=== PATIENT | male | born 1960 ===

== ENCOUNTER 2018-01-26 13:13 | Inpatient (IN) | payer MEDICAID, OTHER ==
--- NOTE | 2018-01-26 13:36 | C.PDOC ---
History Of Present Illness Pt is a 57yo who presents with c/o gen wkns and difficulty walking for the past 1 month.Pt also reports diff with speaking ,moving his tongue.Pt denies CP, SOB.Pt fell in the ED on the way in for evaluation Chief Complaint (Nursing): Trauma History Per: Patient History/Exam Limitations: language barrier Onset/Duration Of Symptoms: Persistent Current Symptoms Are (Timing): Worse Activity At Onset Of Symptoms: Standing Seizure Or Post-ictal Symptoms: None Fall Associated With With Symptoms: No Severity: None Recent travel outside of the [place]: No - Symptoms Of CVA Associated Symptoms: Impaired Speech, Decreased Ability To Walk Character Of Deficits: Left: Weakness, Face: Weakness, Arm: Weakness, Leg: Weakness Recent Aspirin Use: No Current Coumadin Use?: No Recent Head Trauma: No Past Medical History Reviewed: Historical Data, Nursing Documentation, Vital Signs Vital Signs: Last Vital Signs Temp 97.9 F 01/26/18 18:25 Pulse 57 L 01/26/18 19:07 Resp 20 01/26/18 18:25 BP 122/76 01/26/18 18:25 Pulse Ox 97 01/27/18 00:36 - Medical History PMH: Asthma Family History: States: No Known Family Hx - Social History Hx Alcohol Use: No Hx Substance Use: Yes (ocassionally) - Immunization History Hx Tetanus Toxoid Vaccination: No Hx Influenza Vaccination: No Hx Pneumococcal Vaccination: No Review Of Systems Constitutional: Negative for: Fever ENT: Negative for: Ear Pain, Throat Pain Cardiovascular: Negative for: Chest Pain, Palpitations Respiratory: Negative for: Shortness of Breath Gastrointestinal: Negative for: Nausea, Vomiting Musculoskeletal: Negative for: Back Pain Neurological: Positive for: Weakness, Numbness, Incoordination, Change in Speech , Other (facial droop) Physical Exam - Physical Exam Appears: Non-toxic, No Acute Distress Skin: Warm, Dry, No Rash Eye(s): bilateral: PERRL Cardiovascular: Rhythm Regular, No Murmur Respiratory: Normal Breath Sounds, No Accessory Muscle Use Gastrointestinal/Abdominal: No Soft Extremity: No Deformity, No Swelling Neurological/Psych: Normal Motor (Left upper extremity: 3/5 strength with pronators drift. Left lower extremity: 4/5. ), Other (Left facial droop, djiboutian speaking only. Somewhat dysarthric) Other Neurological Findings: Tongue Deviation (left) Extremity: Left: Drift Before 10 Secs ED Course And Treatment - Laboratory Results Result Diagrams: 01/26/18 13:59 01/26/18 13:59 ECG: Interpreted By Me ECG Rhythm: Sinus Rhythm, ST/T Changes O2 Sat by Pulse Oximetry: 97 Interpretation Of Abnormal: flipped t's 2,3,avf,v4-v6.Q's in 2,3,f c/w old IWMI.No old ekg's for comparison - CT Scan/US No standard instances Other Rad Studies (CT/US): Read By Radiologist (R post branch MCA subacute ischemic stroke) NIHSS Stroke Scale 2 - Date/Time Evaluation Performed When Was NIHSS Performed: Baseline - How Severe is the Stroke Level of Consciousness: 0=Alert LOC to Questions: 0=Both comments correct LOC to commands: 0=Obeys both correctly Best Gaze: 0=Normal Visual: 0=No visual loss Facial: 2=Partial (lower face paralysis) Motor Arm - Left: 1=Drift noted before 10 sec Motor Arm - Right: 0=No drift Motor Leg - Left: 1=Drift before 5 sec Motor Leg - Right: 0=No drift Limb Ataxia: 1=Present Upper or Lower Sensory: 0=Normal Best Language: 0=No aphasia Dysarthia: 0=Normal articulation Extinction & Inattention (Neglect): 0=Normal, no object Score: 5 Medical Decision Making Medical Decision Making: Impression 57y/o M appears much older than stated age, comes in w/ dysarthria, facial droop and weakness x1 month. Diff Dx (includes but not limited to) Subacute CVA vs New onset diabetes Plan: * Type and Screen * CT Head * EKG * Labs * Aspirin, IVFs * Chest X-Ray * Reassess and Disposition Disposition - Disposition Disposition: HOSPITALIZED Disposition Time: 00:33 Condition: FAIR - Clinical Impression Clinical Impression: CVA (cerebral vascular accident) - Scribe Statement The provider has reviewed the documentation as recorded by the Scribe (Allen Mulligan) All medical record entries made by the Scribe were at my direction and personally dictated by me. I have reviewed the chart and agree that the record accurately reflects my personal performance of the history, physical exam, medical decision making, and the department course for this patient. I have also personally directed, reviewed, and agree with the discharge instructions and disposition.
[2018-01-26] MEDS ORDERED: Sodium Chloride 0.9% 1,000 ML IV SCH (13:45)
[2018-01-26] MEDS ORDERED: Iodixanol 320 MG/ML 100 ML BOTTLE IV ONE (13:49)
[2018-01-26] MEDS ORDERED: Sodium Chloride 0.9% 1,000 ML IV ONE (13:50)
[2018-01-26] MEDS ORDERED: Sodium Chloride 0.9% 1,000 ML ONE (13:54)
[2018-01-26 14:10] LABS: BASO # 0.1 K/uL (0.0-0.2); BASO % 1.1 % (0.0-2.0); EOS # 0.2 K/uL (0.0-0.7); EOS % 1.9 % (0.0-4.0); HEMOGLOBIN 15.1 g/dL (12.0-18.0); LYMPH # 2.1 K/uL (1.0-4.3); LYMPH % 22.5 % (20.0-40.0); MEAN CORPUSCULAR HEMOGLOBIN 29.2 pg (27.0-31.0); MEAN PLATELET VOLUME 7.5 fL (7.2-11.7); MONO # 0.5 K/uL (0.0-0.8); NEUT # 6.5 K/uL (1.8-7.0); NEUT % 69.5 % (50.0-75.0); NRBC % 0.1 % (0.0-2.0); RBC 5.15 Mil/uL (4.40-5.90); RED CELL DISTRIBUTION WIDTH 14.5 % (11.5-14.5); WHITE BLOOD COUNT 9.3 K/uL (4.8-10.8)
[2018-01-26 14:14] LABS: INR 1.2; PROTHROMBIN TIME 13.4 SECONDS (9.7-12.2)
[2018-01-26 14:22] LABS: ALB/GLOB RATIO 1.1 (1.0-2.1); ALBUMIN 3.9 g/dL (3.5-5.0); ALT/SGPT 24 U/L (21-72); AST/SGOT 25 U/L (17-59); BLOOD UREA NITROGEN 11 mg/dL (9-20); GFR AFRICAN-AMERICAN > 60; GFR NON-AFRICAN AMERICAN > 60; HDL CHOLESTEROL 35 mg/dL (30-70)
--- NOTE | 2018-01-26 14:25 | RAD ---
HISTORY: Code Stroke COMPARISON: No prior. FINDINGS: LUNGS: No active pulmonary disease. PLEURA: No significant pleural effusion identified, no pneumothorax apparent. CARDIOVASCULAR: Atherosclerotic aortic calcifications. Cardiomediastinal silhouette within normal limits. OSSEOUS STRUCTURES: Mild degenerative changes. VISUALIZED UPPER ABDOMEN: Normal. OTHER FINDINGS: None. IMPRESSION: No active disease.
[2018-01-26 14:33] LABS: LDL CHOLESTEROL 111 mg/dL (0-129)
[2018-01-26 14:48] LABS: B-TYPE NATRIURETIC PEPTIDE 157 pg/mL (0-900)
--- NOTE | 2018-01-26 14:53 | CT ---
PROCEDURE: CT HEAD WITHOUT CONTRAST. HISTORY: L hemiparesis COMPARISON: None available. TECHNIQUE: Axial computed tomography images were obtained through the head/brain without intravenous contrast. Radiation dose: Total exam DLP = 772.2 mGy-cm. This CT exam was performed using one or more of the following dose reduction techniques: Automated exposure control, adjustment of the mA and/or kV according to patient size, and/or use of iterative reconstruction technique. FINDINGS: HEMORRHAGE: No intracranial hemorrhage. BRAIN: Old posterior right MCA territory subacute infarction No atrophy or chronic microvascular ischemic changes. VENTRICLES: Unremarkable. No hydrocephalus. CALVARIUM: Unremarkable. PARANASAL SINUSES: Partial right maxillary and right ethmoid air cell opacification. MASTOID AIR CELLS: Unremarkable as visualized. No inflammatory changes. OTHER FINDINGS: None. IMPRESSION: Posterior right MCA territory subacute infarction.
--- NOTE | 2018-01-26 15:42 | CT ---
EXAM: CT Angiography Head With Intravenous Contrast CLINICAL HISTORY: 57 years old, male; Pain; Headache; Additional info: L hemiparesis TECHNIQUE: Axial computed tomographic angiography images of the head with intravenous contrast using CT angiography protocol. All CT scans at this facility use one or more dose reduction techniques, viz.: automated exposure control; ma/kV adjustment per patient size (including targeted exams where dose is matched to indication; i.e. head); or iterative reconstruction technique. MIP reconstructed images were created and reviewed. Coronal and sagittal reformatted images were created and reviewed. CONTRAST: 100 mL of [id number] administered intravenously. COMPARISON: No relevant prior studies available. FINDINGS: Right internal carotid artery: The horizontal portion of the right petrous internal carotid artery is markedly narrowed and attenuated . It is markedly narrowed as it exits the foramen lacerum. No aneurysm. Right anterior cerebral artery: Unremarkable. No occlusion or significant stenosis. No aneurysm. Right middle cerebral artery: Unremarkable. No occlusion or significant stenosis. No aneurysm. Right posterior cerebral artery: Unremarkable. No occlusion or significant stenosis. No aneurysm. Right vertebral artery: Unremarkable as visualized. Left internal carotid artery: No acute findings. Intracranial segment is patent with no significant stenosis. No aneurysm. Left anterior cerebral artery: Unremarkable. No occlusion or significant stenosis. No aneurysm. Left middle cerebral artery: Unremarkable. No occlusion or significant stenosis. No aneurysm. Left posterior cerebral artery: Unremarkable. No occlusion or significant stenosis. No aneurysm. Left vertebral artery: Unremarkable as visualized. Basilar artery: Unremarkable. No occlusion or significant stenosis. No aneurysm. IMPRESSION: 1. Marked narrowing and attenuation of the horizontal portion of the right petrous internal carotid artery. 2. Low density in the right parietal lobe consistent with the history of a previous right MCA infarct EXAM: CT Angiography Neck With Intravenous Contrast EXAM DATE/TIME: Exam ordered 01/26/2018 1:39 PM CLINICAL HISTORY: 57 years old, male; Pain; Headache; Additional info: L hemiparesis TECHNIQUE: Axial computed tomographic angiography images of the neck with intravenous contrast using CT angiography protocol. All CT scans at this facility use one or more dose reduction techniques, viz.: automated exposure control; ma/kV adjustment per patient size (including targeted exams where dose is matched to indication; i.e. head); or iterative reconstruction technique. MIP reconstructed images were created and reviewed. Coronal and sagittal reformatted images were created and reviewed. CONTRAST: 100 mL of [id number] administered intravenously. COMPARISON: No relevant prior studies available. FINDINGS: VASCULATURE: Right common carotid artery: Unremarkable. No significant stenosis. No dissection or occlusion. Right internal carotid artery: Calcified plaque is noted in the carotid bulb. Weblike plaque is noted at the level of the carotid bulb and the proximal right internal carotid artery. The right cervical carotid is attenuated and appears lower in density and smaller in caliber than on the contralateral side. Right external carotid artery: Unremarkable. No occlusion. Right vertebral artery: Unremarkable. No significant stenosis. No dissection or occlusion. Left common carotid artery: Unremarkable. No significant stenosis. No dissection or occlusion. Left internal carotid artery: Calcified plaque is noted in the carotid bulb.. Extracranial segment is patent with no significant stenosis. No dissection or occlusion. Left external carotid artery: Unremarkable. No occlusion. Left vertebral artery: Unremarkable. No significant stenosis. No dissection or occlusion. NECK: Bones/joints: No acute fracture. No dislocation. Soft tissues: Unremarkable as visualized. No mass. Sinuses: Mucosal thickening is noted within the maxillary sinuses bilaterally. Mucosal thickening extends into the ethmoid air cells bilaterally. 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 Dental: There are multiple missing teeth. There are dental caries. Thyroid: There is a 1.2 cm low-density lesion in the right lobe of the thyroid. Lung apices: Centrilobular and paraseptal type emphysema is noted in the lung apices bilaterally. Other findings: Low density is noted within the right parietal lobe. Moderate degenerative disc disease is noted of the mid and lower cervical spine. CAROTID STENOSIS REFERENCE USING NASCET CRITERIA: % ICA stenosis = (1 - narrowest ICA diameter/diameter of distal cervical ICA) x 100. Mild - <50% stenosis. Moderate - 50-69% stenosis. Severe - 70-94% stenosis. Near occlusion - 95-99% stenosis. Occluded - 100% stenosis. IMPRESSION: 1. Plaque noted within the common carotid arteries bilaterally. 2. The right cervical carotid is attenuated and appears lower in density and smaller caliber than on the contralateral side. 3. Mucosal thickening within maxillary sinuses bilaterally. 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 4. 1.2 cm low density lesion in the right lobe of the thyroid. Recommend further evaluation with thyroid ultrasound.
--- NOTE | 2018-01-26 17:02 | CP.PCM.CON ---
History of Present Illness - History of Present Illness History of Present Illness: Mr. 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 He presented to the ED today because he "could not take it any more". He denied headache, visual changes, loss of consciousness or any other focal neurological deficits (other than those mentioned). Review of Systems - Review of Systems All systems: reviewed and no additional remarkable complaints except Past Patient History - Past Social History Smoking Status: Light Smoker < 10 Cigarettes Daily - PULMONARY Hx Asthma: Yes - PSYCHIATRIC Hx Substance Use: Yes (ocassionally) - SURGICAL HISTORY Hx Surgeries: No - ANESTHESIA Hx Anesthesia: No Meds Allergies/Adverse Reactions: Allergies Allergy/AdvReac Type Severity Reaction Status Date / Time No Known Allergies Allergy Verified 01/26/18 13:29 - Medications Medications: Current Medications Sodium Chloride (Sodium Chloride 0.9%) 1,000 mls @ 100 mls/hr IV .Q10H ONE Stop: 01/26/18 23:49 Last Admin: 01/26/18 13:50 Dose: 100 mls/hr Physical Exam - Constitutional Appears: Well - Head Exam Head Exam: ATRAUMATIC, NORMAL INSPECTION, NORMOCEPHALIC - Eye Exam Eye Exam: EOMI, Normal appearance, PERRL - Respiratory Exam Respiratory Exam: Clear to Auscultation Bilateral, NORMAL BREATHING PATTERN - Cardiovascular Exam Cardiovascular Exam: Bradycardia, REGULAR RHYTHM - GI/Abdominal Exam GI & Abdominal Exam: Normal Bowel Sounds, Soft. absent: Tenderness - Neurological Exam Neurological exam: Abnormal Gait, Alert, CN II-XII Intact, Oriented x3, Reflexes Normal Additional comments: Left side hemiplegia, killian-anesthesia, slight neglect, reflexes brisk. NIHSS = 6 Results - Vital Signs Recent Vital Signs: Last Vital Signs Temp 97.7 F 01/26/18 13:24 Pulse 51 L 01/26/18 16:35 Resp 16 01/26/18 16:35 BP 107/66 01/26/18 16:35 Pulse Ox 97 01/26/18 16:35 - Labs Result Diagrams: 01/26/18 13:59 01/26/18 13:59 Labs: Laboratory Results - last 24 hr 03/02/1001/26/18 01/26/18 13:58 13:59 13:59 WBC 9.3 RBC 5.15 Hgb 15.1 Hct 44.3 MCV 86.0 MCH 29.2 MCHC 34.0 RDW 14.5 Plt Count 462 H MPV 7.5 Neut % (Auto) 69.5 Lymph % (Auto) 22.5 Vil[place] % (Auto) 5.0 Eos % (Auto) 1.9 Baso % (Auto) 1.1 Neut # (Auto) 6.5 Lymph # (Auto) 2.1 [place] # (Auto) 0.5 Eos # (Auto) 0.2 Baso # (Auto) 0.1 PT 13.4 H INR 1.2 APTT 35 H Sodium Potassium Chloride Carbon Dioxide Anion Gap BUN Creatinine Est GFR ( Amer) Est GFR (Non-Af Amer) Random Glucose Calcium Total Bilirubin AST ALT Alkaline Phosphatase Troponin I NT-Pro-B Natriuret Pep Total Protein Albumin Globulin Albumin/Globulin Ratio Triglycerides Cholesterol LDL Cholesterol Direct HDL Cholesterol Blood Type O POSITIVE Antibody Screen Negative 01/26/18 13:59 WBC RBC Hgb Hct MCV MCH MCHC RDW Plt Count MPV Neut % (Auto) Lymph % (Auto) Vil[place] % (Auto) Eos % (Auto) Baso % (Auto) Neut # (Auto) Lymph # (Auto) [place] # (Auto) Eos # (Auto) Baso # (Auto) PT INR APTT Sodium 141 Potassium 3.5 L Chloride 106 Carbon Dioxide 25 Anion Gap 13 BUN 11 Creatinine 1.0 Est GFR ( Amer) > 60 Est GFR (Non-Af Amer) > 60 Random Glucose 139 H Calcium 9.0 Total Bilirubin 0.5 AST 25 ALT 24 Alkaline Phosphatase 75 Troponin I < 0.0120 NT-Pro-B Natriuret Pep 157 Total Protein 7.5 Albumin 3.9 Globulin 3.6 Albumin/Globulin Ratio 1.1 Triglycerides 153 H Cholesterol 174 LDL Cholesterol Direct 111 HDL Cholesterol 35 Blood Type Antibody Screen - Imaging and Cardiology CT scan - head Status: Image reviewed by me, Report reviewed by me (Right MCA chronic ischemic stroke. Intracranial TRACY is stenotic. ) Assessment & Plan (1) Ischemic stroke Assessment and Plan: Based on the CT and CTA the ischemic stroke is chronic and may be due to intracranial stenosis of the TRACY. However, the patient was bradycardic and may have an underlying cardiac dysrhythmia causing cardio-embolic stroke. I recommend the followin. Admit to telemetry 2. MRI of the brain without contrast 3. Echocardiogram with bubble study 4. Carotid Duplex 5. Start aspirin 81 mg daily, load with plavix 300 mg now, and continue along with aspirin 75 mg daily for intracranial atherosclerotic disease 6. Lipitor 40 mg daily 7. HbA1c, lipid panel, TSH, vitamin D levels, B12, folate levels, hypercoagulable work-up 8. Fluids with NS at 100 mL/hr 9. PT/OT eval and treatment 10. Case management consult Thank you. Status: Acute Priority: High
--- NOTE | 2018-01-26 17:25 | CP.PCM.HP ---
<Daniel Steel - Last Filed: 01/26/18 17:22> History of Present Illness - History of Present Illness History of Present Illness: This is a 57 yo male with past medical hx of cocaine use presenting to ER with chief complaint of weakness. 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 He came in because he said he could not take it any more. Reports no other medical issues and no prior stroke. He says he last used cocaine 2 weeks ago. He is emirati speaking only and he takes no medications at home. PMH: cocaine use PSH: none Allergies: NKDA FH: denies Home meds: none Social hx: current smoker. 1 cig/week since age 7. social drinker. cocaine user. last use 2 weeks ago. born in [place]. 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 Present on Admission - Present on Admission Any Indicators Present on Admission: No History of DVT/PE: No History of Uncontrolled Diabetes: No Urinary Catheter: No Decubitus Ulcer Present: No Review of Systems - Review of Systems All systems: reviewed and no additional remarkable complaints except Review of Systems: negative except as stated in HPI. Past Patient History - Infectious Disease Hx of Infectious Diseases: None - Tetanus Immunizations Tetanus Immunization: Unknown - Past Medical History & Family History Past Medical History?: Yes Past Family History: Reviewed and not pertinent - Past Social History Smoking Status: Light Smoker < 10 Cigarettes Daily Chewing Tobacco Use: No Cigar Use: No Alcohol: Occasional Drugs: Cocaine Home Situation {Lives}: Alone Domestic Violence: Negative - PULMONARY Hx Asthma: Yes - PSYCHIATRIC Hx Substance Use: Yes (ocassionally) - SURGICAL HISTORY Hx Surgeries: No - ANESTHESIA Hx Anesthesia: No Meds Allergies/Adverse Reactions: Allergies Allergy/AdvReac Type Severity Reaction Status Date / Time No Known Allergies Allergy Verified 01/26/18 13:29 Physical Exam - Constitutional Appears: No Acute Distress, Unkempt - Head Exam Head Exam: ATRAUMATIC, NORMOCEPHALIC. absent: NORMAL INSPECTION Additional comments: left sided facial droop - Eye Exam Eye Exam: EOMI - ENT Exam ENT Exam: Mucous Membranes Moist - Neck Exam Neck exam: Positive for: Full Rom, Normal Inspection - Respiratory Exam Respiratory Exam: NORMAL BREATHING PATTERN. absent: Respiratory Distress - Cardiovascular Exam Cardiovascular Exam: REGULAR RHYTHM, +S1, +S2 - GI/Abdominal Exam GI & Abdominal Exam: Normal Bowel Sounds, Soft. absent: Tenderness - Extremities Exam Extremities exam: Positive for: full ROM, normal inspection - Back Exam Back exam: NORMAL INSPECTION - Neurological Exam Neurological exam: Alert, Oriented x3 Additional comments: left sided facial droop, slurred speech, drift in left leg, some weakness in left upper ext. - Psychiatric Exam Psychiatric exam: Normal Affect, Normal Mood Results - Vital Signs Recent Vital Signs: Last Vital Signs Temp 97.7 F 01/26/18 13:24 Pulse 51 L 01/26/18 16:35 Resp 16 01/26/18 16:35 BP 107/66 01/26/18 16:35 Pulse Ox 97 01/26/18 16:35 - Labs Result Diagrams: 01/26/18 13:59 01/26/18 13:59 Labs: Laboratory Results - last 24 hr 01/26/18 01/26/18 01/26/18 13:58 13:59 13:59 WBC 9.3 RBC 5.15 Hgb 15.1 Hct 44.3 MCV 86.0 MCH 29.2 MCHC 34.0 RDW 14.5 Plt Count 462 H MPV 7.5 Neut % (Auto) 69.5 Lymph % (Auto) 22.5 Kendall % (Auto) 5.0 Eos % (Auto) 1.9 Baso % (Auto) 1.1 Neut # (Auto) 6.5 Lymph # (Auto) 2.1 Kendall # (Auto) 0.5 Eos # (Auto) 0.2 Baso # (Auto) 0.1 PT 13.4 H INR 1.2 APTT 35 H Sodium Potassium Chloride Carbon Dioxide Anion Gap BUN Creatinine Est GFR ( Amer) Est GFR (Non-Af Amer) Random Glucose Calcium Total Bilirubin AST ALT Alkaline Phosphatase Troponin I NT-Pro-B Natriuret Pep Total Protein Albumin Globulin Albumin/Globulin Ratio Triglycerides Cholesterol LDL Cholesterol Direct HDL Cholesterol Blood Type O POSITIVE Antibody Screen Negative 01/26/18 13:59 WBC RBC Hgb Hct MCV MCH MCHC RDW Plt Count MPV Neut % (Auto) Lymph % (Auto) Kendall % (Auto) Eos % (Auto) Baso % (Auto) Neut # (Auto) Lymph # (Auto) Kend[place] # (Auto) Eos # (Auto) Baso # (Auto) PT INR APTT Sodium 141 Potassium 3.5 L Chloride 106 Carbon Dioxide 25 Anion Gap 13 BUN 11 Creatinine 1.0 Est GFR ( Amer) > 60 Est GFR (Non-Af Amer) > 60 Random Glucose 139 H Calcium 9.0 Total Bilirubin 0.5 AST 25 ALT 24 Alkaline Phosphatase 75 Troponin I < 0.0120 NT-Pro-B Natriuret Pep 157 Total Protein 7.5 Albumin 3.9 Globulin 3.6 Albumin/Globulin Ratio 1.1 Triglycerides 153 H Cholesterol 174 LDL Cholesterol Direct 111 HDL Cholesterol 35 Blood Type Antibody Screen Assessment & Plan - Assessment and Plan (Free Text) Assessment: This is a 57 yo male with past medical hx of cocaine use presenting with 1. Acute CVA -neuro consult. recs appreciated. -asa 81 daily -plavix 75 daily -cta pending -will coordinate with Jie if there is a possible need for stenting. -PT/OT evaluation -speech and swallow eval. -echo pending -TSH -A1C 2. hx of cocaine use -urine drug screen 3. Bradycardia -continue to monitor 4. GI/DVT ppx -SCDs -protonix discussed with Dr. Baker. <Blanca Baker - Last Filed: 01/27/18 16:26> Results - Vital Signs Recent Vital Signs: Last Vital Signs Temp 98.4 F 01/27/18 15:54 Pulse 46 L 01/27/18 15:54 Resp 18 01/27/18 15:54 BP 108/62 01/27/18 15:54 Pulse Ox 98 01/27/18 15:54 - Labs Result Diagrams: 01/27/18 07:37 01/27/18 07:37 Labs: Laboratory Results - last 24 hr 01/26/18 01/26/18 01/26/18 13:59 13:59 17:20 WBC RBC Hgb Hct MCV MCH MCHC RDW Plt Count MPV Neut % (Auto) Lymph % (Auto) Kendall % (Auto) Eos % (Auto) Baso % (Auto) Neut # (Auto) Lymph # (Auto) Kendall # (Auto) Eos # (Auto) Baso # (Auto) ESR Sodium 141 Potassium 3.5 L Chloride 106 Carbon Dioxide 25 Anion Gap 13 BUN 11 Creatinine 1.0 Est GFR ( Amer) > 60 Est GFR (Non-Af Amer) > 60 Random Glucose 139 H Hemoglobin A1c 5.6 Calcium 9.0 Total Bilirubin 0.5 AST 25 ALT 24 Alkaline Phosphatase 75 Troponin I < 0.0120 NT-Pro-B Natriuret Pep 157 Total Protein 7.5 Albumin 3.9 Globulin 3.6 Albumin/Globulin Ratio 1.1 Triglycerides 153 H Cholesterol 174 LDL Cholesterol Direct 111 HDL Cholesterol 35 Prostate Specific Ag TSH 3rd Generation 1.10 Urine Opiates Screen Negative Urine Methadone Screen Negative Ur Barbiturates Screen Negative Ur Phencyclidine Scrn Negative Ur Amphetamines Screen Negative U Benzodiazepines Scrn Negative U Oth Cocaine Metabols Positive H U Cannabinoids Screen Negative 01/27/18 01/27/18 07:37 07:37 WBC 8.3 RBC 4.89 Hgb 14.3 Hct 41.7 MCV 85.4 MCH 29.3 MCHC 34.3 RDW 14.5 Plt Count 441 H MPV 7.5 Neut % (Auto) 62.6 Lymph % (Auto) 25.7 Kendall % (Auto) 7.0 Eos % (Auto) 3.7 Baso % (Auto) 1.0 Neut # (Auto) 5.2 Lymph # (Auto) 2.1 Kendall # (Auto) 0.6 Eos # (Auto) 0.3 Baso # (Auto) 0.1 ESR 5 Sodium 140 Potassium 3.8 Chloride 109 H Carbon Dioxide 25 Anion Gap 10 BUN 9 Creatinine 0.9 Est GFR ( Amer) > 60 Est GFR (Non-Af Amer) > 60 Random Glucose 89 Hemoglobin A1c Calcium 8.7 Total Bilirubin 0.4 AST 27 ALT 23 Alkaline Phosphatase 77 Troponin I NT-Pro-B Natriuret Pep Total Protein 6.6 Albumin 3.2 L Globulin 3.3 Albumin/Globulin Ratio 1.0 Triglycerides Cholesterol LDL Cholesterol Direct HDL Cholesterol Prostate Specific Ag 2.03 TSH 3rd Generation Urine Opiates Screen Urine Methadone Screen Ur Barbiturates Screen Ur Phencyclidine Scrn Ur Amphetamines Screen U Benzodiazepines Scrn U Oth Cocaine Metabols U Cannabinoids Screen Attending/Attestation - Attestation I have personally seen and examined this patient.: Yes I have fully participated in the care of the patient.: Yes I have reviewed all pertinent clinical information: Yes Notes (Text): Patient was seen and examined with the resident He is a 57 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 he has subacute CVA with left side weakness. discussed with Dr brewster neurologist at bedside. CT and CTA scan shows ischemic stroke its chronic ,may be due to intracranial stenosis of the R ICA. He is also brdaycardic We will admit to telemetry Do Echocardiogram , Carotid Duplex Start aspirin 81 mg daily, load with plavix 300 mg now, and continue along with aspirin 75 mg daily hypercoagulable work-up,PT and OT. SW referral D/w the resident. I agree with the resident's documentation of the assessment and the plan
[2018-01-26 17:40] LABS: BARBITURATES, UR NEGATIVE (NEGATIVE); BENZODIAZEPINES, UR NEGATIVE (NEGATIVE); OPIATES, UR NEGATIVE (NEGATIVE); PHENCYCLIDINE, UR NEGATIVE (NEGATIVE)
[2018-01-26] MEDS ORDERED: Potassium Chloride 20 mEq ER Tab PO ONE (20:54)
[2018-01-27 07:54] LABS: BASO # 0.1 K/uL (0.0-0.2); EOS # 0.3 K/uL (0.0-0.7); EOS % 3.7 % (0.0-4.0); HEMOGLOBIN 14.3 g/dL (12.0-18.0); LYMPH # 2.1 K/uL (1.0-4.3); LYMPH % 25.7 % (20.0-40.0); MEAN CELL VOLUME 85.4 fL (80.0-94.0); MEAN CORPUSCULAR HEMOGLOBIN 29.3 pg (27.0-31.0); MEAN CORPUSCULAR HGB CONC 34.3 g/dL (33.0-37.0); MEAN PLATELET VOLUME 7.5 fL (7.2-11.7); MONO # 0.6 K/uL (0.0-0.8); NEUT # 5.2 K/uL (1.8-7.0); NEUT % 62.6 % (50.0-75.0); NRBC % 0.2 % (0.0-2.0); RBC 4.89 Mil/uL (4.40-5.90); RED CELL DISTRIBUTION WIDTH 14.5 % (11.5-14.5); WHITE BLOOD COUNT 8.3 K/uL (4.8-10.8)
[2018-01-27 08:08] LABS: ALBUMIN 3.2 g/dL (3.5-5.0); ALT/SGPT 23 U/L (21-72); AST/SGOT 27 U/L (17-59); BLOOD UREA NITROGEN 9 mg/dL (9-20); CALCIUM 8.7 mg/dl (8.6-10.4); GFR AFRICAN-AMERICAN > 60; GFR NON-AFRICAN AMERICAN > 60
--- NOTE | 2018-01-27 09:47 | US ---
HISTORY: lesion on thyroid TECHNIQUE: Sonographic evaluation of the thyroid gland. COMPARISON: Correlation is made to CT of the head/ neck dated 01/26/2018. FINDINGS: RIGHT LOBE: Measures 4.5 x 1.9 x 1.6 cm. Normal echotexture and flow. Nodules: Midpole multi-septated cystic nodule measuring 1.4 x 0.9 x 1.0 cm LEFT LOBE: Measures 3.8 x 1.6 x 1.4 cm. Normal echotexture and flow. Nodules: None ISTHMUS: Measures 0.3 cm. Normal echotexture and flow. Nodules: None OTHER FINDINGS: None . IMPRESSION: Right midpole multi-septated cystic nodule measuring up to 1.4 cm.
--- NOTE | 2018-01-27 15:29 | CP.PCM.PN ---
<Daniel Steel - Last Filed: 01/27/18 15:35> Subjective - Date & Time of Evaluation Date of Evaluation: 01/27/18 Time of Evaluation: 15:30 - Subjective Subjective: Progress note. Pt seen and examined at bedside. No acute distress. No events overnight. Neurology workup in progress. No fevers, chills, vomiting, diarrhea. Thyroid ultrasound pending. Objective - Vital Signs/Intake and Output Vital Signs (last 24 hours): Temp Pulse Resp BP Pulse Ox 98.0 F 49 L 20 110/62 96 01/27/18 09:08 01/27/18 09:08 01/27/18 09:08 01/27/18 09:08 01/27/18 09:08 Intake and Output: 01/27/18 01/27/18 06:59 18:59 Output Total 400 Balance -400 - Medications Medications: Current Medications Aspirin (Aspirin Chewable) 81 mg PO DAILY [facility] Last Admin: 01/27/18 10:29 Dose: 81 mg Clopidogrel Bisulfate (Plavix) 75 mg PO DAILY [facility] Last Admin: 01/27/18 10:29 Dose: 75 mg Heparin Sodium (Porcine) (Heparin) 5,000 units SC Q8 [facility] Last Admin: 01/27/18 13:22 Dose: 5,000 units Pantoprazole Sodium (Protonix Inj) 40 mg IVP DAILY [facility] Last Admin: 01/27/18 10:29 Dose: 40 mg Rosuvastatin Calcium (Crestor) 10 mg PO HS [facility] Last Admin: 01/26/18 21:14 Dose: 10 mg - Labs Labs: 01/27/18 07:37 01/27/18 07:37 PT 13.4 SECONDS (9.7-12.2) H 01/26/18 13:59 INR 1.2 01/26/18 13:59 APTT 35 SECONDS (21-34) H 01/26/18 13:59 - Constitutional Appears: Non-toxic, No Acute Distress - Head Exam Head Exam: ATRAUMATIC, NORMAL INSPECTION, NORMOCEPHALIC - Eye Exam Eye Exam: EOMI - ENT Exam ENT Exam: Mucous Membranes Moist - Neck Exam Neck Exam: Full ROM, Normal Inspection - Respiratory Exam Respiratory Exam: NORMAL BREATHING PATTERN. absent: Respiratory Distress - Cardiovascular Exam Cardiovascular Exam: +S1, +S2 - GI/Abdominal Exam GI & Abdominal Exam: Soft, Normal Bowel Sounds. absent: Tenderness - Extremities Exam Extremities Exam: Full ROM, Normal Inspection - Neurological Exam Neurological Exam: Alert, Awake, CN II-XII Intact - Psychiatric Exam Psychiatric exam: Flat Affect - Skin Skin Exam: Dry, Intact, Normal Color, Warm Assessment and Plan - Assessment and Plan (Free Text) Assessment: This is a 57 yo male with past medical hx of cocaine use presenting with 1. Acute CVA -neuro consult. recs appreciated. Dr. Ceron. -asa 81 daily -plavix 75 daily -cta head and neck shows atherosclerotic disease of common carotids as well as lesion on right lobe of thyroid. -will coordinate with Jie if there is a possible need for stenting. -PT/OT evaluation -speech and swallow eval was passed and pt started on soft diet. -echo pending -TSH within normal limits -A1C pending -will check protein c activity -will check protein s antigen -MRI of brain ordered. 2. hx of cocaine use -urine drug screen positive for cocaine 3. Bradycardia -continue to monitor -echo pending 4. GI/DVT ppx -SCDs -protonix -heparin 5000 SC q8 hrs discussed with Dr. Baker. <Blanca Baker - Last Filed: 01/27/18 19:01> Objective - Vital Signs/Intake and Output Vital Signs (last 24 hours): Temp Pulse Resp BP Pulse Ox 98.4 F 46 L 18 108/62 98 01/27/18 15:54 01/27/18 15:54 01/27/18 15:54 01/27/18 15:54 01/27/18 15:54 Intake and Output: 01/27/18 01/27/18 06:59 18:59 Intake Total 300 Output Total 400 500 Balance -400 -200 - Medications Medications: Current Medications Aspirin (Aspirin Chewable) 81 mg PO DAILY [facility] Last Admin: 01/27/18 10:29 Dose: 81 mg Clopidogrel Bisulfate (Plavix) 75 mg PO DAILY [facility] Last Admin: 01/27/18 10:29 Dose: 75 mg Heparin Sodium (Porcine) (Heparin) 5,000 units SC Q8 [facility] Last Admin: 01/27/18 13:22 Dose: 5,000 units Pantoprazole Sodium (Protonix Inj) 40 mg IVP DAILY [facility] Last Admin: 03/04/18 10:29 Dose: 40 mg Rosuvastatin Calcium (Crestor) 10 mg PO HS [facility] Last Admin: 01/26/18 21:14 Dose: 10 mg - Labs Labs: 01/27/18 07:37 01/27/18 07:37 PT 13.4 SECONDS (9.7-12.2) H 01/26/18 13:59 INR 1.2 01/26/18 13:59 APTT 35 SECONDS (21-34) H 01/26/18 13:59 Attending/Attestation - Attestation I have personally seen and examined this patient.: Yes I have fully participated in the care of the patient.: Yes I have reviewed all pertinent clinical information, including history, physical exam and plan: Yes Notes (Text): Patient was seen and examined with the resident He is a 57 years old male [employer],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 he has subacute CVA with left side weakness. discussed with Dr ceron neurologist at bedside. CT and CTA scan shows ischemic stroke its chronic ,may be due to intracranial stenosis of the R ICA. we will follow neurologist recommendation He is also brdaycardic and the EKG showed possible inferior infarct age undetermined and T wave abnormality Urine possitive for cocaine follow Echocardiogram , Carotid Duplex continue along with aspirin 75 mg daily and asprin hypercoagulable work-up,PT and OT. SW referral D/w the resident. I agree with the resident's documentation of the assessment and the plan
--- NOTE | 2018-01-27 15:30 | CP.PCM.PN ---
Subjective - Date & Time of Evaluation Date of Evaluation: 01/27/18 Time of Evaluation: 15:28 - Subjective Subjective: Mr. Morocho was seen and examined at the bedside. He is alert, oriented. He denies any headache, dizziness, lightheadedness, nausea, or vomiting. He remains with left facial droop, left side weakness. He is able to follow simple commands. CTA of the head and neck showed plaque noted within the bilateral common carotid arteries. The right cervical carotidis attenuated and appears lower in density and smaller in caliber than the contralateral side. Mucosal thickening within the bilateral maxillary sinuses, the right maxillary sinus is hypoplastic. 1.2 cm low density lesion in the right lobe thyroid. There was no untoward events overnight. Objective - Vital Signs/Intake and Output Vital Signs (last 24 hours): Temp Pulse Resp BP Pulse Ox 98.0 F 49 L 20 110/62 96 01/27/18 09:08 01/27/18 09:08 01/27/18 09:08 01/27/18 09:08 01/27/18 09:08 Intake and Output: 01/27/18 01/27/18 06:59 18:59 Output Total 400 Balance -400 - Medications Medications: Current Medications Aspirin (Aspirin Chewable) 81 mg PO DAILY [facility] Last Admin: 01/27/18 10:29 Dose: 81 mg Clopidogrel Bisulfate (Plavix) 75 mg PO DAILY [facility] Last Admin: 01/27/18 10:29 Dose: 75 mg Heparin Sodium (Porcine) (Heparin) 5,000 units SC Q8 [facility] Last Admin: 01/27/18 13:22 Dose: 5,000 units Pantoprazole Sodium (Protonix Inj) 40 mg IVP DAILY [facility] Last Admin: 01/27/18 10:29 Dose: 40 mg Rosuvastatin Calcium (Crestor) 10 mg PO HS [facility] Last Admin: 01/26/18 21:14 Dose: 10 mg - Labs Labs: 01/27/18 07:37 01/27/18 07:37 PT 13.4 SECONDS (9.7-12.2) H 01/26/18 13:59 INR 1.2 01/26/18 13:59 APTT 35 SECONDS (21-34) H 01/26/18 13:59 - Constitutional Appears: No Acute Distress - Head Exam Head Exam: NORMAL INSPECTION - Neurological Exam Neurological Exam: Alert, Awake, Oriented x3 Neuro motor strength exam: Left Upper Extremity: 2/1, Right Upper Extremity: 5, Left Lower Extremity: 2/1, Right Lower Extremity: 5 Additional comments: Left side hemiplegia, killian-anesthesia, slight neglect, reflexes brisk. Assessment and Plan - Assessment and Plan (Free Text) Assessment: Ischemic stroke Plan: Case discussed with Dr. Ceron, continue all current medical, physical, and occupational therapies. Recommend MRI of the brain without contrast. Pending echocardiogram with bubble study, Carotid Duplex.
[2018-01-27] MEDS ORDERED: Potassium Chloride 20 mEq ER Tab PO ONE (20:43)
--- NOTE | 2018-01-28 07:59 | CP.PCM.PN ---
Subjective - Date & Time of Evaluation Date of Evaluation: 01/28/18 Time of Evaluation: 07:57 - Subjective Subjective: Mr. Morocho was seen and examined at the bedside. He is alert, oriented. He denies any headache, dizziness, lightheadedness, blurred vision. He has the left facial droop and left upper extremity weakness. He is able to reposition himself while in bed and feed himself. He is able to follow simple commands. There was no untoward events overnight. Objective - Vital Signs/Intake and Output Vital Signs (last 24 hours): Temp Pulse Resp BP Pulse Ox 98.2 F 40 L 20 114/69 98 01/27/18 23:05 01/28/18 01:00 01/27/18 23:05 01/27/18 23:05 01/27/18 23:05 Intake and Output: 01/28/18 01/28/18 06:59 18:59 Intake Total 400 Balance 400 - Medications Medications: Current Medications Aspirin (Aspirin Chewable) 81 mg PO DAILY [facility] Last Admin: 01/27/18 10:29 Dose: 81 mg Clopidogrel Bisulfate (Plavix) 75 mg PO DAILY [facility] Last Admin: 01/27/18 10:29 Dose: 75 mg Heparin Sodium (Porcine) (Heparin) 5,000 units SC Q8 [facility] Last Admin: 01/28/18 05:23 Dose: 5,000 units Pantoprazole Sodium (Protonix Inj) 40 mg IVP DAILY [facility] Last Admin: 01/27/18 10:29 Dose: 40 mg Rosuvastatin Calcium (Crestor) 10 mg PO HS [facility] Last Admin: 01/27/18 21:28 Dose: 10 mg - Labs Labs: 01/27/18 07:37 01/27/18 07:37 PT 13.4 SECONDS (9.7-12.2) H 01/26/18 13:59 INR 1.2 01/26/18 13:59 APTT 35 SECONDS (21-34) H 01/26/18 13:59 - Constitutional Appears: No Acute Distress - Head Exam Head Exam: NORMAL INSPECTION - Neurological Exam Neurological Exam: Alert, Awake, Oriented x3 Neuro motor strength exam: Left Upper Extremity: 2/1, Right Upper Extremity: 5, Left Lower Extremity: 4, Right Lower Extremity: 5 Additional comments: Neurological unchanged from previous examination. Assessment and Plan (1) Ischemic stroke Assessment & Plan: Case discussed with Dr. Bennett, continue all current medical, physical, and occupational therapies. Recommend MRI of the brain without contrast and blood pressure control. Status: Acute
--- NOTE | 2018-01-28 10:16 | CP.PCM.PN ---
<Patricia Rush E - Last Filed: 01/28/18 17:18> Subjective - Date & Time of Evaluation Date of Evaluation: 01/28/18 Time of Evaluation: 07:40 - Subjective Subjective: Medicine Progress note (Dr. Springer's service) Patient was seen and examined at bedside. Patient reports that he is doing well. Patient is oriented to location and person with no noted speech deficit. During the encounter, patient has left arm weakness> left lower extremity. Patient denies chest pain, SOB, palpitations, nausea, vomiting, abdominal pain, fever or chills. Objective - Vital Signs/Intake and Output Vital Signs (last 24 hours): Temp Pulse Resp BP Pulse Ox 98.3 F 50 L 18 116/73 99 01/28/18 07:35 01/28/18 07:35 01/28/18 07:35 01/28/18 07:35 01/28/18 07:35 Intake and Output: 01/28/18 01/28/18 06:59 18:59 Intake Total 400 Balance 400 - Medications Medications: Current Medications Aspirin (Aspirin Chewable) 81 mg PO DAILY [facility] Last Admin: 01/27/18 10:29 Dose: 81 mg Clopidogrel Bisulfate (Plavix) 75 mg PO DAILY [facility] Last Admin: 01/27/18 10:29 Dose: 75 mg Heparin Sodium (Porcine) (Heparin) 5,000 units SC Q8 [facility] Last Admin: 01/28/18 05:23 Dose: 5,000 units Pantoprazole Sodium (Protonix Inj) 40 mg IVP DAILY [facility] Last Admin: 01/27/18 10:29 Dose: 40 mg Rosuvastatin Calcium (Crestor) 10 mg PO HS [facility] Last Admin: 01/27/18 21:28 Dose: 10 mg - Labs Labs: 01/27/18 07:37 01/27/18 07:37 PT 13.4 SECONDS (9.7-12.2) H 01/26/18 13:59 INR 1.2 01/26/18 13:59 APTT 35 SECONDS (21-34) H 01/26/18 13:59 - Constitutional Appears: Well, No Acute Distress - Head Exam Head Exam: ATRAUMATIC, NORMAL INSPECTION Additional comments: Mild left facial droop - Eye Exam Eye Exam: EOMI, Normal appearance - ENT Exam ENT Exam: Mucous Membranes Moist - Respiratory Exam Respiratory Exam: Clear to Ausculation Bilateral, NORMAL BREATHING PATTERN. absent: Rhonchi, Wheezes, Respiratory Distress - Cardiovascular Exam Cardiovascular Exam: REGULAR RHYTHM, +S1, +S2. absent: Murmur - GI/Abdominal Exam GI & Abdominal Exam: Soft, Normal Bowel Sounds. absent: Guarding, Rigid, Tenderness - Extremities Exam Extremities Exam: Normal Inspection Additional comments: Left sided weakness Left arm weakness> Left lower extremity - Neurological Exam Neurological Exam: Alert, Awake, CN II-XII Intact, Oriented x3 - Psychiatric Exam Psychiatric exam: Normal Affect - Skin Skin Exam: Normal Color Assessment and Plan (1) CVA (cerebral vascular accident) Assessment & Plan: Neurology consult, Dr. Ceron consult---> Help appreciated * Management as per recommendation Imaging/ Labs : Lipid panel: TGL: 153, Chol: 174m LDL: 111, HDL: 35 Hemoglobin A1c: 5.[address] (01/26/18): Posterior right MCA territory subacute infarction. Head/Neck CTA (01/26/18): Plaque noted within the common carotid arteries bilaterally. * 2. The right cervical carotid is attenuated and appears lower in density and smaller caliber than on the contralateral side. * 3. Mucosal thickening within maxillary sinuses bilaterally. 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 * 4. 1.2 cm low density lesion in the right lobe of the thyroid. Recommend further evaluation with thyroid ultrasound. Carotid Doppler (01/27/18): Duplex scan does not suggest hemodynamically significant stenosis of the left and right extracranial carotid arteries Brain MRI (01/27/18): Large subacute right MCA territory infarction involving the parietal lobe with mild gyral edema without mass effect or midline shift. Small focus of subacute infarction in the right frontal subcortical white matter. Mild chronic microangiopathic changes and mild age-related global parenchymal volume loss. Awaiting echocardiogram report f/U hypercoagulable workup Medication and management: * Aspirin 81mg PO daily * Plavix 75mg PO daily * Crestor 10mg PO HS * Speech, occupational and physical therapy Status: Acute (2) Thyroid lesion Assessment & Plan: Imaging/Lab: Head/Neck CTA (01/26/18): 1.2 cm low density lesion in the right lobe of the thyroid. Recommend further evaluation with thyroid ultrasound. Thyroid Ultrasound (01/27/18): Right midpole multi-septated cystic nodule measuring up to 1.4 cm. TSH: 1.10 Status: Acute (3) Substance abuse Assessment & Plan: UDS on admission: + Cocaine * avoid beta jelani Status: Acute (4) Bradycardia Assessment & Plan: Asymptomatic * Continue to monitor on telemetry Status: Acute (5) Prophylactic measure Assessment & Plan: GI: Protonic 40mg IVP daily DVT: Heparin 5,000 units SC Q8H, SCDs Speech, occupational and physical therapy * As per speech therapy, advanced bite diet and thin liquids All plans and management discussed with Dr. Springer Status: Acute <Pardeep Springer H - Last Filed: 01/29/18 07:36> Objective - Vital Signs/Intake and Output Vital Signs (last 24 hours): Temp Pulse Resp BP Pulse Ox 98.2 F 46 L 20 131/83 98 01/28/18 23:00 01/29/18 04:18 01/28/18 23:00 01/28/18 23:00 01/28/18 23:00 Intake and Output: 01/29/18 01/29/18 06:59 18:59 Intake Total 300 Balance 300 - Medications Medications: Current Medications Aspirin (Aspirin Chewable) 81 mg PO DAILY [facility] Last Admin: 01/28/18 11:04 Dose: 81 mg Clopidogrel Bisulfate (Plavix) 75 mg PO DAILY [facility] Last Admin: 01/28/18 11:04 Dose: 75 mg Heparin Sodium (Porcine) (Heparin) 5,000 units SC Q8 [facility] Last Admin: 01/29/18 06:07 Dose: 5,000 units Pantoprazole Sodium (Protonix Inj) 40 mg IVP DAILY [facility] Last Admin: 01/28/18 11:04 Dose: 40 mg Rosuvastatin Calcium (Crestor) 10 mg PO [facility] Last Admin: 01/28/18 21:52 Dose: 10 mg - Labs Labs: 01/29/18 06:53 01/27/18 07:37 PT 13.4 SECONDS (9.7-12.2) H 01/26/18 13:59 INR 1.2 01/26/18 13:59 APTT 35 SECONDS (21-34) H 01/26/18 13:59 Attending/Attestation - Attestation I have personally seen and examined this patient.: Yes I have fully participated in the care of the patient.: Yes I have reviewed all pertinent clinical information, including history, physical exam and plan: Yes Notes (Text): 01/29/18 07:36 Medical attending: Patient was seen and examined by me and medical records analyst together. Agree with the above note by medical records analyst. This is a 57-year-old male who unfortunately has had a CVA with left side hemiparesis. On physical exam he has very weak of left upper extremity body strength. He is able to weakly grasp my hand. He is able to hold his left arm up however he has heavy drinking and eventually he hits the bed after less than 10 seconds. He has very poor ability to flex and extend his elbow examination of his lower extremity shows that he is able to raise his left leg up from the bed however he has a lot of drifting does hit the bed after less than 10 seconds. Is also some noticeable facial drooping as well. As mentioned previously on the CAT scan they saw that he had a large right parietal area CVA. At the time I saw the patient yesterday he had not yet undergone MRI. Since then the MRI has returned it again confirmed the CAT scan findings. From what I understand the patient has been using at least cocaine. From what I understand the patient tolerated in [place]ian he only snorts the cocaine he does not inject cocaine however we will still have to get a echo as well as carotid studies just to see if he could've had a potential vegetation He'll need physical therapy to help as well. He is on Crestor, aspirin, Plavix, statin and his blood pressures have been stable as well Appreciate neurology coming and seeing the patient Thank you very much, Pardeep Springer
--- NOTE | 2018-01-28 12:35 | VASCLAB ---
PROCEDURE: HISTORY: ischemic stroke COMPARISON: None available. TECHNIQUE: Grayscale and duplex Doppler evaluation of the cervical carotid and vertebral arteries were performed. The common carotid, carotid bifurcations and cervical Internal Carotid Artery (ICA) and proximal External Carotid Artery (ECA) were evaluated. The vertebral arteries were evaluated for gross patency and flow direction. Report prepared by Geoffrey Avendano, BS, RVT FINDINGS: RIGHT CAROTID ARTERIES: 1. Common Carotid Artery: No significant focal plaque formation of the right common carotid artery. Maximum Peak Systolic velocity: 70 cm/sec: End-diastolic velocity 13 cm/sec. 2. Carotid Bifurcation: plaque formation. Maximum Peak Systolic velocity: 63 cm/sec: End-diastolic velocity 8 cm/sec. 3. Internal Carotid Artery: Plaque description: 3.1. Proximal Segment: Peak systolic velocity 46 cm/sec: End-diastolic velocity 11 cm/sec - % stenosis 0-15% 3.2. Middle Segment: Peak systolic velocity 52 cm/sec: End-diastolic velocity 14 cm/sec - % stenosis 0-15% 3.3. Distal Segment: Peak systolic velocity 43 cm/sec: End-diastolic velocity 11 cm/sec - % stenosis 0-15% 4. External Carotid Artery: No significant focal plaque formation. Peak systolic velocity 109 cm/sec 5. ICA/CCA Ratio: 0.9 LEFT CAROTID ARTERIES: 1. Common Carotid Artery: No significant focal plaque formation of the left common carotid artery. Maximum Peak Systolic velocity: 74 cm/sec: End-diastolic velocity 12 cm/sec. 2. Carotid Bifurcation: plaque formation. Maximum Peak Systolic velocity: 61 cm/sec: End-diastolic velocity 9 cm/sec. 3. Internal Carotid Artery: Plaque description: 3.1. Proximal Segment: Peak systolic velocity 66 cm/sec: End-diastolic velocity 15 cm/sec - % stenosis 0-15% 3.2. Middle Segment: Peak systolic velocity 60 cm/sec: End-diastolic velocity 16 cm/sec - % stenosis 0-15% 3.3. Distal Segment: Peak systolic velocity 41 cm/sec: End-diastolic velocity 12 cm/sec - % stenosis 0-15% 4. External Carotid Artery: No significant focal plaque formation. Peak systolic velocity 110 cm/sec 5. ICA/CCA Ratio: 0.9 VERTEBRAL ARTERIES: 1. Right Vertebral Artery: The right vertebral artery flow direction is antegrade. 2. Left Vertebral Artery: The left vertebral artery flow direction is antegrade. OTHER FINDINGS: 1. Right Brachial Blood pressure: 100 mmHg. 2. Left Brachial Blood pressure: 100 mmHg. IMPRESSION: RIGHT: Duplex scan does not suggest hemodynamically significant stenosis of the right extracranial carotid arteries. LEFT: Duplex scan does not suggest hemodynamically significant stenosis of the left extracranial carotid arteries.
--- NOTE | 2018-01-28 16:14 | MRI ---
PROCEDURE: MRI BRAIN WITHOUT CONTRAST HISTORY: ischemic stroke COMPARISON: Noncontrast head CT from 01/26/2018. TECHNIQUE: Multiplanar, multisequence MR images of the brain were obtained without intravenous contrast enhancement. FINDINGS: HEMORRHAGE: None DWI: There is a large area of restricted diffusion in the right parietal lobe. There is also a small focus of restricted diffusion in the right frontal subcortical white matter. BRAIN PARENCHYMA: There is T2/FLAIR hyperintensity in the right parietal lobe corresponding to the area of restricted diffusion with mild gyral edema. There is no mass, mass effect or abnormal extra-axial fluid collection. There are mild chronic microangiopathic changes. The midline sagittal structures are normal VENTRICLES: There is mild age-related global parenchymal volume loss and proportionate enlargement of the ventricles and cortical sulci. CRANIUM: There is normal bone marrow signal pattern. ORBITS: Grossly unremarkable. PARANASAL SINUSES/MASTOIDS: Chronic right maxillary sinusitis. The remaining included paranasal sinuses and mastoid air cells are clear the VASCULAR SYSTEM: Skull base flow voids intact. OTHER FINDINGS: None. IMPRESSION: Large subacute right MCA territory infarction involving the parietal lobe with mild gyral edema without mass effect or midline shift. Small focus of subacute infarction in the right frontal subcortical white matter. Mild chronic microangiopathic changes and mild age-related global parenchymal volume loss.
--- NOTE | 2018-01-28 23:29 | CP.PCM.CON ---
History of Present Illness - History of Present Illness History of Present Illness: 57 M admitted for stroke ECHO: ? LV non compaction cardiomyopathy Recommend ASA 81 plus Plavix 75 daily Past Patient History - Infectious Disease Hx of Infectious Diseases: None - Tetanus Immunizations Tetanus Immunization: Unknown - Past Medical History & Family History Past Medical History?: Yes - Past Social History Smoking Status: Light Smoker < 10 Cigarettes Daily - CARDIAC Hx Cardiac Disorders: No - PULMONARY Hx Asthma: Yes - NEUROLOGICAL Hx Neurological Disorder: No - HEENT Hx HEENT Problems: No - RENAL Hx Chronic Kidney Disease: No - ENDOCRINE/METABOLIC Hx Endocrine Disorders: No - HEMATOLOGICAL/ONCOLOGICAL Hx Blood Disorders: No - INTEGUMENTARY Hx Dermatological Problems: No - MUSCULOSKELETAL/RHEUMATOLOGICAL Hx Falls: No - GASTROINTESTINAL Hx Gastrointestinal Disorders: No - GENITOURINARY/GYNECOLOGICAL Hx Genitourinary Disorders: No - PSYCHIATRIC Hx Substance Use: Yes (ocassionally) - SURGICAL HISTORY Hx Surgeries: No - ANESTHESIA Hx Anesthesia: No Meds Allergies/Adverse Reactions: Allergies Allergy/AdvReac Type Severity Reaction Status Date / Time No Known Allergies Allergy Verified 01/26/18 13:29 - Medications Medications: Current Medications Aspirin (Aspirin Chewable) 81 mg PO DAILY [facility] Last Admin: 01/28/18 11:04 Dose: 81 mg Clopidogrel Bisulfate (Plavix) 75 mg PO DAILY [facility] Last Admin: 01/28/18 11:04 Dose: 75 mg Heparin Sodium (Porcine) (Heparin) 5,000 units SC Q8 [facility] Last Admin: 01/28/18 21:52 Dose: 5,000 units Pantoprazole Sodium (Protonix Inj) 40 mg IVP DAILY [facility] Last Admin: 01/28/18 11:04 Dose: 40 mg Rosuvastatin Calcium (Crestor) 10 mg PO HS [facility] Last Admin: 01/28/18 21:52 Dose: 10 mg Results - Vital Signs Recent Vital Signs: Last Vital Signs Temp 98.4 F 01/28/18 15:00 Pulse 53 L 01/28/18 15:00 Resp 18 01/28/18 15:00 BP 109/64 01/28/18 15:00 Pulse Ox 98 01/28/18 15:00 - Labs Result Diagrams: 01/27/18 07:37 01/27/18 07:37 Labs: Laboratory Results - last 24 hr 01/28/18 01/28/18 07:08 07:08 25-OH Vitamin D Total 12.9 L Folate 13.4
[2018-01-29 07:12] LABS: BASO # 0.1 K/uL (0.0-0.2); BASO % 1.5 % (0.0-2.0); EOS # 0.2 K/uL (0.0-0.7); EOS % 2.7 % (0.0-4.0); HEMOGLOBIN 14.9 g/dL (12.0-18.0); LYMPH # 2.1 K/uL (1.0-4.3); LYMPH % 24.2 % (20.0-40.0); MEAN CELL VOLUME 85.1 fL (80.0-94.0); MEAN CORPUSCULAR HEMOGLOBIN 28.9 pg (27.0-31.0); MEAN PLATELET VOLUME 7.8 fL (7.2-11.7); MONO # 0.5 K/uL (0.0-0.8); MONO % 5.4 % (0.0-10.0); NEUT # 5.6 K/uL (1.8-7.0); NEUT % 66.2 % (50.0-75.0); NRBC % 0.1 % (0.0-2.0); RBC 5.15 Mil/uL (4.40-5.90); RED CELL DISTRIBUTION WIDTH 14.5 % (11.5-14.5); WHITE BLOOD COUNT 8.5 K/uL (4.8-10.8)
[2018-01-29 07:42] LABS: ALBUMIN 3.5 g/dL (3.5-5.0); ALT/SGPT 21 U/L (21-72); AST/SGOT 29 U/L (17-59); BLOOD UREA NITROGEN 11 mg/dL (9-20); CALCIUM 8.8 mg/dl (8.6-10.4); GFR AFRICAN-AMERICAN > 60; GFR NON-AFRICAN AMERICAN > 60
--- NOTE | 2018-01-29 13:37 | CP.PCM.PN ---
<Patricia Rush E - Last Filed: 01/29/18 13:57> Subjective - Date & Time of Evaluation Date of Evaluation: 01/29/18 Time of Evaluation: 07:15 - Subjective Subjective: Medicine progress note ( Dr. Springer's service) Patient was seen and examined at bedside. Patient reports that he is doing well. Patient denies chest pain, SOB, palpitations, headache, blurry vision, nausea, vomiting, fever and chills. Patient still have left side weakness, Left arm> Left leg. Patient continues to work with physical therapy. Objective - Vital Signs/Intake and Output Vital Signs (last 24 hours): Temp Pulse Resp BP Pulse Ox 98.1 F 48 L 20 110/67 20 L 01/29/18 08:06 01/29/18 08:06 01/29/18 08:06 01/29/18 08:06 01/29/18 08:06 Intake and Output: 01/29/18 01/29/18 06:59 18:59 Intake Total 420 Output Total 400 Balance 20 - Medications Medications: Current Medications Aspirin (Aspirin Chewable) 81 mg PO DAILY [facility] Last Admin: 01/29/18 10:17 Dose: 81 mg Clopidogrel Bisulfate (Plavix) 75 mg PO DAILY [facility] Last Admin: 01/29/18 10:17 Dose: 75 mg Heparin Sodium (Porcine) (Heparin) 5,000 units SC Q8 [facility] Last Admin: 01/29/18 06:07 Dose: 5,000 units Pantoprazole Sodium (Protonix Inj) 40 mg IVP DAILY [facility] Last Admin: 01/29/18 10:17 Dose: 40 mg Rosuvastatin Calcium (Crestor) 10 mg PO HS [facility] Last Admin: 01/28/18 21:52 Dose: 10 mg - Labs Labs: 01/29/18 06:53 01/29/18 06:53 PT 13.4 SECONDS (9.7-12.2) H 01/26/18 13:59 INR 1.2 01/26/18 13:59 APTT 35 SECONDS (21-34) H 01/26/18 13:59 - Constitutional Appears: Well, No Acute Distress - Head Exam Head Exam: ATRAUMATIC, NORMAL INSPECTION - Eye Exam Eye Exam: EOMI, Normal appearance - ENT Exam ENT Exam: Mucous Membranes Moist - Respiratory Exam Respiratory Exam: Clear to Ausculation Bilateral, NORMAL BREATHING PATTERN. absent: Rhonchi, Wheezes - Cardiovascular Exam Cardiovascular Exam: REGULAR RHYTHM, +S1, +S2 - GI/Abdominal Exam GI & Abdominal Exam: Soft, Normal Bowel Sounds. absent: Firm, Guarding, Rigid, Tenderness - Extremities Exam Extremities Exam: Normal Inspection. absent: Calf Tenderness, Pedal Edema Additional comments: Left sided weakness Left arm weakness> Left lower extremity - Neurological Exam Neurological Exam: Alert, Awake. absent: Normal Gait Neuro motor strength exam: Left Upper Extremity: 3, Right Upper Extremity: 5, Left Lower Extremity: 3, Right Lower Extremity: 4 - Psychiatric Exam Psychiatric exam: Normal Affect - Skin Skin Exam: Normal Color Assessment and Plan (1) CVA (cerebral vascular accident) Assessment & Plan: CVA (cerebral vascular accident) Assessment & Plan: Neurology consult, Dr. Ceron consult---> Help appreciated * Management as per recommendation Imaging/ Labs : Lipid panel: TGL: 153, Chol: 174m LDL: 111, HDL: 35 Hemoglobin A1c: 5.[address] (01/26/18): Posterior right MCA territory subacute infarction. Head/Neck CTA (01/26/18): Plaque noted within the common carotid arteries bilaterally. * 2. The right cervical carotid is attenuated and appears lower in density and smaller caliber than on the contralateral side. * 3. Mucosal thickening within maxillary sinuses bilaterally. 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 * 4. 1.2 cm low density lesion in the right lobe of the thyroid. Recommend further evaluation with thyroid ultrasound. Carotid Doppler (01/27/18): Duplex scan does not suggest hemodynamically significant stenosis of the left and right extracranial carotid arteries Brain MRI (01/27/18): Large subacute right MCA territory infarction involving the parietal lobe with mild gyral edema without mass effect or midline shift. Small focus of subacute infarction in the right frontal subcortical white matter. Mild chronic microangiopathic changes and mild age-related global parenchymal volume loss. 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 Status: Acute (2) Thyroid lesion Assessment & Plan: Imaging/Lab: Head/Neck CTA (01/26/18): 1.2 cm low density lesion in the right lobe of the thyroid. Recommend further evaluation with thyroid ultrasound. Thyroid Ultrasound (01/27/18): Right midpole multi-septated cystic nodule measuring up to 1.4 cm. TSH: 1.10 Status: Acute (3) Substance abuse Assessment & Plan: UDS on admission: + Cocaine * avoid beta jelani Status: Acute (4) Bradycardia Assessment & Plan: Asymptomatic * Continue to monitor on telemetry Status: Acute (5) Prophylactic measure Assessment & Plan: GI: Protonix 40mg IVP daily DVT: Heparin 5,000 units SC Q8H, SCDs Speech, occupational and physical therapy * As per speech therapy, advanced bite diet and thin liquids Disposition: Patient needs more physical therapy and possibly rehabilitation upon discharge; will follow up with cyanide case hardener regarding access to rehabilitation. All plans and management discussed with Dr. Springer Status: Acute <Pardeep Springer H - Last Filed: 01/29/18 14:55> Objective - Vital Signs/Intake and Output Vital Signs (last 24 hours): Temp Pulse Resp BP Pulse Ox 98.1 F 48 L 20 110/67 20 L 01/29/18 08:06 01/29/18 08:06 01/29/18 08:06 01/29/18 08:06 01/29/18 08:06 Intake and Output: 01/29/18 01/29/18 06:59 18:59 Intake Total 420 600 Output Total 400 Balance 20 600 - Medications Medications: Current Medications Aspirin (Aspirin Chewable) 81 mg PO DAILY [facility] Last Admin: 01/29/18 10:17 Dose: 81 mg Clopidogrel Bisulfate (Plavix) 75 mg PO DAILY [facility] Last Admin: 01/29/18 10:17 Dose: 75 mg Heparin Sodium (Porcine) (Heparin) 5,000 units SC Q8 [facility] Last Admin: 01/29/18 13:59 Dose: 5,000 units Pantoprazole Sodium (Protonix Inj) 40 mg IVP DAILY [facility] Last Admin: 01/29/18 10:17 Dose: 40 mg Rosuvastatin Calcium (Crestor) 10 mg PO HS [facility] Last Admin: 01/28/18 21:52 Dose: 10 mg - Labs Labs: 01/29/18 06:53 01/29/18 06:53 PT 13.4 SECONDS (9.7-12.2) H 01/26/18 13:59 INR 1.2 01/26/18 13:59 APTT 35 SECONDS (21-34) H 01/26/18 13:59 Attending/Attestation - Attestation I have personally seen and examined this patient.: Yes I have fully participated in the care of the patient.: Yes I have reviewed all pertinent clinical information, including history, physical exam and plan: Yes Notes (Text): Medical attending: Patient was seen and examined by me as well. Agree with the above note by the resident. The patient was not in any acute distress when we saw him As reported previously the patient's had a large parietal CVA. This was found on both CT scan as well as MRI of the brain. He remains on aspirin statin Plavix Also as previously mentioned, the patient has been using cocaine. We have ordered an echo that was done. Were still waiting on the final report of the echo at this moment. Does not have any cardiac murmurs exam nevertheless we did get the echo back to see if he could have potentially any vegetations. At the meantime he's to continue with physical therapy. Because of his social situation may be very difficult to get him to subacute rehabilitation or outpatient PT however we'll continue to monitor the patient and encourage PT while he's here thank you Pardeep Springer
--- NOTE | 2018-01-29 21:03 | CARD ---
APPROVED REPORT EXAM: Two-dimensional and M-mode echocardiogram with Doppler and color Doppler. Other Information Quality : [employer] : INDICATION CVA/TIA 2D DIMENSIONS IVSd0.8 (0.7-1.1cm)Aortic Root (2D)3.4 (2.0-3.7cm) LVDd4.7 (3.9-5.9cm)PWd1.0 (0.7-1.1cm) LVDs3.1 (2.5-4.0cm)FS (%) 33.4 % LVEF (%)62.0 (>50%) M-Mode DIMENSIONS Left Atrium (MM)3.56 (2.5-4.0cm)Aortic Root3.39 (2.2-3.7cm) Aortic Cusp Exc.2.34 (1.5-2.0cm) Mitral Valve MV E Xwxxkspb65.6cm/sMV A Eluzlxkh36.5cm/sE/A ratio1.5 TDI E/Lateral E'0.0E/Medial E'0.0 Tricuspid Valve TR Peak Vdsmcnuq077sp/sTR Peak [id number] LEFT VENTRICLE The left ventricle is normal size. There is normal left ventricular wall thickness. Left ventricle systolic function is The Ejection Fraction is 60-65%. There is normal LV segmental wall motion. The left ventricular diastolic function is normal. RIGHT VENTRICLE The right ventricle is normal size. There is normal right ventricular wall thickness. The right ventricular systolic function is normal. ATRIA The left atrium size is normal. The right atrium size is normal. The interatrial septum is intact with no evidence for an atrial septal defect. AORTIC VALVE The aortic valve is normal in structure. No aortic regurgitation is present. There is no aortic valvular stenosis. There is no aortic valvular vegetation. MITRAL VALVE The mitral valve is normal in structure. There is no evidence of mitral valve prolapse. There is no mitral valve stenosis. There is no mitral valve regurgitation noted. TRICUSPID VALVE The tricuspid valve is normal in structure. There is mild tricuspid regurgitation. Right ventricular systolic pressure is estimated at less than 30 mmHg. There is no pulmonary hypertension. There is no tricuspid valve prolapse or vegetation. There is no tricuspid valve stenosis. PULMONIC VALVE The pulmonic valve is not well visualized. There is mild pulmonic valvular regurgitation. GREAT VESSELS The aortic root is normal in size. PERICARDIAL EFFUSION There is no significant pericardial effusion. <Conclusion> Left ventricle systolic function is The Ejection Fraction is 60-65%. No aortic regurgitation is present. There is no mitral valve regurgitation noted. There is mild tricuspid regurgitation. There is no pulmonary hypertension. There is mild pulmonic valvular regurgitation.
[2018-01-30 07:42] LABS: BASO # 0.1 K/uL (0.0-0.2); BASO % 0.9 % (0.0-2.0); EOS # 0.3 K/uL (0.0-0.7); EOS % 3.9 % (0.0-4.0); HEMOGLOBIN 13.8 g/dL (12.0-18.0); LYMPH # 2.3 K/uL (1.0-4.3); LYMPH % 25.6 % (20.0-40.0); MEAN CELL VOLUME 85.6 fL (80.0-94.0); MEAN CORPUSCULAR HEMOGLOBIN 28.8 pg (27.0-31.0); MEAN CORPUSCULAR HGB CONC 33.7 g/dL (33.0-37.0); MEAN PLATELET VOLUME 7.8 fL (7.2-11.7); MONO # 0.6 K/uL (0.0-0.8); MONO % 7.1 % (0.0-10.0); NEUT # 5.5 K/uL (1.8-7.0); NEUT % 62.5 % (50.0-75.0); RBC 4.79 Mil/uL (4.40-5.90); RED CELL DISTRIBUTION WIDTH 14.5 % (11.5-14.5); WHITE BLOOD COUNT 8.8 K/uL (4.8-10.8)
--- NOTE | 2018-01-30 07:44 | CP.PCM.PN ---
Subjective - Date & Time of Evaluation Date of Evaluation: 01/30/18 Time of Evaluation: 07:37 - Subjective Subjective: Mr. Morocho was seen and examined at the bedside. He is alert, oriented in all spheres. He denies any headache, dizziness, lightheadedness, nausea, or vomiting. He remains with left side weakness. MRI of the brain showed large subacute right MCA infarction involving the parietal lobe with mild gyral edema without mass effect or midline shift. Small focus of subacute infarction in the right frontal subcortical white matter. Mild chronic microangiopathic changes and mild aga-related global parenchymal volume loss.Echocardiogram showed EK-60-65%, with mild tricuspid and pulmonic valve regurgitation. There was no untoward events overnight. Objective - Vital Signs/Intake and Output Vital Signs (last 24 hours): Temp Pulse Resp BP Pulse Ox 97.8 F 46 L 20 111/62 100 01/30/18 04:26 01/30/18 04:49 01/30/18 04:26 01/30/18 04:26 01/30/18 04:26 Intake and Output: 01/30/18 01/30/18 06:59 18:59 Intake Total 440 Output Total 502 Balance -62 - Medications Medications: Current Medications Aspirin (Aspirin Chewable) 81 mg PO DAILY [facility] Last Admin: 01/29/18 10:17 Dose: 81 mg Clopidogrel Bisulfate (Plavix) 75 mg PO DAILY [facility] Last Admin: 01/29/18 10:17 Dose: 75 mg Heparin Sodium (Porcine) (Heparin) 5,000 units SC Q8 [facility] Last Admin: 01/30/18 06:22 Dose: 5,000 units Pantoprazole Sodium (Protonix Inj) 40 mg IVP DAILY [facility] Last Admin: 01/29/18 10:17 Dose: 40 mg Rosuvastatin Calcium (Crestor) 10 mg PO HS [facility] Last Admin: 01/29/18 21:12 Dose: 10 mg - Labs Labs: 01/29/18 06:53 01/29/18 06:53 PT 13.4 SECONDS (9.7-12.2) H 01/26/18 13:59 INR 1.2 01/26/18 13:59 APTT 35 SECONDS (21-34) H 01/26/18 13:59 - Constitutional Appears: No Acute Distress - Head Exam Head Exam: NORMAL INSPECTION - Neurological Exam Neurological Exam: Alert, Awake, Oriented x3 Neuro motor strength exam: Left Upper Extremity: 3, Right Upper Extremity: 5, Left Lower Extremity: 3, Right Lower Extremity: 5 Additional comments: Neurological unchanged from previous examination. Assessment and Plan (1) Ischemic stroke Assessment & Plan: Case discussed with Dr. Bennett, continue all current medical regimen. Recommend PT , OT, and speech therapies. Recommend rehab for discharge palnning. Status: Acute
[2018-01-30 09:26] LABS: ALBUMIN 3.3 g/dL (3.5-5.0); ALT/SGPT 24 U/L (21-72); AST/SGOT 56 U/L (17-59); BLOOD UREA NITROGEN 14 mg/dL (9-20); CALCIUM 8.7 mg/dl (8.6-10.4); GFR AFRICAN-AMERICAN > 60; GFR NON-AFRICAN AMERICAN > 60
--- NOTE | 2018-01-30 09:26 | CP.PCM.PN ---
<Patricia Rush E - Last Filed: 01/30/18 16:27> Subjective - Date & Time of Evaluation Date of Evaluation: 01/30/18 Time of Evaluation: 07:35 - Subjective Subjective: Medicine progress note ( Dr. Springer's service) Patient was seen and examined at bedside. Patient reports that he is doing well. Patient denies chest pain, SOB, palpitations, headache, blurry vision, nausea, vomiting, fever and chills. Patient still have left side weakness, Left arm> Left leg with improvement. Patient continues to work with physical therapy. Objective - Vital Signs/Intake and Output Vital Signs (last 24 hours): Temp Pulse Resp BP Pulse Ox 97.8 F 51 L 20 115/68 99 01/30/18 07:00 01/30/18 07:00 01/30/18 07:00 01/30/18 07:00 01/30/18 07:00 Intake and Output: 01/30/18 01/30/18 06:59 18:59 Intake Total 440 Output Total 502 Balance -62 - Medications Medications: Current Medications Aspirin (Aspirin Chewable) 81 mg PO DAILY [facility] Last Admin: 01/29/18 10:17 Dose: 81 mg Clopidogrel Bisulfate (Plavix) 75 mg PO DAILY [facility] Last Admin: 01/29/18 10:17 Dose: 75 mg Heparin Sodium (Porcine) (Heparin) 5,000 units SC Q8 [facility] Last Admin: 01/30/18 06:22 Dose: 5,000 units Pantoprazole Sodium (Protonix Inj) 40 mg IVP DAILY [facility] Last Admin: 01/29/18 10:17 Dose: 40 mg Rosuvastatin Calcium (Crestor) 10 mg PO HS [facility] Last Admin: 01/29/18 21:12 Dose: 10 mg - Labs Labs: 01/30/18 07:17 01/29/18 06:53 PT 13.4 SECONDS (9.7-12.2) H 01/26/18 13:59 INR 1.2 01/26/18 13:59 APTT 35 SECONDS (21-34) H 01/26/18 13:59 - Constitutional Appears: Well, No Acute Distress - Head Exam Head Exam: ATRAUMATIC, NORMAL INSPECTION Additional comments: Mild left facial droop secondary to acute CVA - Eye Exam Eye Exam: EOMI - ENT Exam ENT Exam: Mucous Membranes Moist - Respiratory Exam Respiratory Exam: Clear to Ausculation Bilateral, NORMAL BREATHING PATTERN. absent: Rales, Rhonchi, Wheezes, Respiratory Distress - Cardiovascular Exam Cardiovascular Exam: REGULAR RHYTHM, +S1, +S2. absent: Murmur - GI/Abdominal Exam GI & Abdominal Exam: Soft, Normal Bowel Sounds. absent: Firm, Guarding, Rigid, Tenderness - Extremities Exam Extremities Exam: Normal Inspection. absent: Calf Tenderness, Pedal Edema - Neurological Exam Neurological Exam: Alert, Awake Neuro motor strength exam: Left Upper Extremity: 4, Right Upper Extremity: 5, Left Lower Extremity: 4, Right Lower Extremity: 5 - Psychiatric Exam Psychiatric exam: Depressed - Skin Skin Exam: Normal Color Assessment and Plan (1) CVA (cerebral vascular accident) Assessment & Plan: Assessment & Plan: Neurology consult, Dr. Ceron consult---> Help appreciated * Management as per recommendation Imaging/ Labs : Lipid panel: TGL: 153, Chol: 174m LDL: 111, HDL: 35 Hemoglobin A1c: 5.[address] (01/26/18): Posterior right MCA territory subacute infarction. Head/Neck CTA (01/26/18): Plaque noted within the common carotid arteries bilaterally. * 2. The right cervical carotid is attenuated and appears lower in density and smaller caliber than on the contralateral side. * 3. Mucosal thickening within maxillary sinuses bilaterally. 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 * 4. 1.2 cm low density lesion in the right lobe of the thyroid. Recommend further evaluation with thyroid ultrasound. Carotid Doppler (01/27/18): Duplex scan does not suggest hemodynamically significant stenosis of the left and right extracranial carotid arteries Brain MRI (01/27/18): Large subacute right MCA territory infarction involving the parietal lobe with mild gyral edema without mass effect or midline shift. Small focus of subacute infarction in the right frontal subcortical white matter. Mild chronic microangiopathic changes and mild age-related global parenchymal volume loss. Echocardiogram (01/27/18): EF (60-65%), Mild TR & Pulmonic valve regurgitation. Recommendation to continue ASA 81mg PO daily and Plavix 75mg PO daily H ypercoagulable lab workup: Antiphospholipid antibodies, Factor V mutation, Protein S activity * Protein C activity within normal limit Medication and management: * Aspirin 81mg PO daily * Plavix 75mg PO daily * Crestor 10mg PO HS * Speech, occupational and physical therapy: As per physical therapy documentation, patient will benefit from ROM skilled PT in order to improve transfers and Gait patient is clinically evolving in presentation. * As per physical therapy evaluation, patient will need to be discharge to a rehabilitation Status: Acute (2) Thyroid lesion Assessment & Plan: Imaging/Lab: Head/Neck CTA (01/26/18): 1.2 cm low density lesion in the right lobe of the thyroid. Recommend further evaluation with thyroid ultrasound. Thyroid Ultrasound (01/27/18): Right midpole multi-septated cystic nodule measuring up to 1.4 cm. TSH: 1.10 Status: Acute (3) Substance abuse Assessment & Plan: UDS on admission: + Cocaine * avoid beta jelani Status: Acute (4) Bradycardia Assessment & Plan: Asymptomatic * Continue to monitor on telemetry Status: Acute (5) Prophylactic measure Assessment & Plan: GI: Protonix 40mg IVP daily DVT: Heparin 5,000 units SC Q8H, SCDs Speech, occupational and physical therapy * As per speech therapy, advanced bite diet and thin liquids Disposition: Patient needs more physical therapy and possibly rehabilitation upon discharge; will follow up with case therapist regarding access to rehabilitation. All plans and management discussed with Dr. Springer Status: Acute <Pardeep Springer - Last Filed: 01/30/18 16:40> Objective - Vital Signs/Intake and Output Vital Signs (last 24 hours): Temp Pulse Resp BP Pulse Ox 97.9 F 58 L 20 116/64 99 01/30/18 16:00 01/30/18 16:00 01/30/18 16:00 01/30/18 16:00 01/30/18 16:00 Intake and Output: 01/30/18 01/30/18 06:59 18:59 Intake Total 440 720 Output Total 502 1200 Balance -62 -480 - Medications Medications: Current Medications Aspirin (Aspirin Chewable) 81 mg PO DAILY [facility] Last Admin: 01/30/18 10:35 Dose: 81 mg Clopidogrel Bisulfate (Plavix) 75 mg PO DAILY [facility] Last Admin: 01/30/18 10:35 Dose: 75 mg Heparin Sodium (Porcine) (Heparin) 5,000 units SC Q8 [facility] Last Admin: 01/30/18 13:44 Dose: 5,000 units Pantoprazole Sodium (Protonix Inj) 40 mg IVP DAILY [facility] Last Admin: 01/30/18 10:35 Dose: 40 mg Rosuvastatin Calcium (Crestor) 10 mg PO HS [facility] Last Admin: 01/29/18 21:12 Dose: 10 mg - Labs Labs: 01/30/18 07:17 01/30/18 07:17 PT 13.4 SECONDS (9.7-12.2) H 01/26/18 13:59 INR 1.2 01/26/18 13:59 APTT 35 SECONDS (21-34) H 01/26/18 13:59 Attending/Attestation - Attestation I have personally seen and examined this patient.: Yes I have fully participated in the care of the patient.: Yes I have reviewed all pertinent clinical information, including history, physical exam and plan: Yes Notes (Text): 01/30/18 16:40 Medical attending: Patient was seen and examined by me with the medical librarian. Reviewed the above note by the resident and agree with the above. As reported above in the medical librarian note, the patient's echo returned he did not have any vegetations on it. Today he seemed to be able to lift his arm higher than before and is able to keep it above the bed for 10 seconds. He still has some drifting but it's not as serious as it was previously. The same can be said for his legs. So at this time were waiting on additional physical therapy. They've recommended [facility] however as mentioned before because the patient's social situation this might not be readily available. He remains on Plavix, aspirin, statin, blood pressure monitoring . Thank you very much, Pardeep Springer
[2018-01-31 03:50] LABS: CARDIOLIPIN AB (IGA) <11 APL (<=11); CARDIOLIPIN AB (IGG) <14 GPL (<=14)
[2018-01-31 04:06] LABS: B2 GLYCOPROTEIN I AB(IGA) <9 SAU (<=20); B2 GLYCOPROTEIN I AB(IGG) <9 SGU (<=20); B2 GLYCOPROTEIN I AB(IGM) <9 SMU (<=20)
[2018-01-31 06:15] LABS: BASO # 0.1 K/uL (0.0-0.2); BASO % 1.1 % (0.0-2.0); EOS # 0.4 K/uL (0.0-0.7); EOS % 4.7 % (0.0-4.0); LYMPH # 1.9 K/uL (1.0-4.3); LYMPH % 21.9 % (20.0-40.0); MEAN CELL VOLUME 84.8 fL (80.0-94.0); MEAN CORPUSCULAR HEMOGLOBIN 29.1 pg (27.0-31.0); MEAN CORPUSCULAR HGB CONC 34.3 g/dL (33.0-37.0); MEAN PLATELET VOLUME 7.6 fL (7.2-11.7); MONO # 0.6 K/uL (0.0-0.8); MONO % 7.1 % (0.0-10.0); NEUT # 5.6 K/uL (1.8-7.0); NEUT % 65.2 % (50.0-75.0); RBC 4.81 Mil/uL (4.40-5.90); RED CELL DISTRIBUTION WIDTH 14.3 % (11.5-14.5); WHITE BLOOD COUNT 8.6 K/uL (4.8-10.8)
[2018-01-31 06:37] LABS: ALB/GLOB RATIO 1.1 (1.0-2.1); ALBUMIN 3.5 g/dL (3.5-5.0); ALT/SGPT 29 U/L (21-72); AST/SGOT 36 U/L (17-59); BLOOD UREA NITROGEN 12 mg/dL (9-20); CALCIUM 8.8 mg/dl (8.6-10.4); GFR AFRICAN-AMERICAN > 60; GFR NON-AFRICAN AMERICAN > 60
--- NOTE | 2018-01-31 08:01 | CP.PCM.PN ---
Subjective - Date & Time of Evaluation Date of Evaluation: 01/31/18 Time of Evaluation: 07:57 - Subjective Subjective: Mr. Morocho was seen and examined at the bedside. He is alert, oriented. He is able to follow simple command and answer all questions. He denies any headache, blurred vision, dizziness, lightheadedness, nause, or vomiting. He is able to move all extremities with left side weaker than the left. There was no untoward events overnight. Objective - Vital Signs/Intake and Output Vital Signs (last 24 hours): Temp Pulse Resp BP Pulse Ox 98.4 F 53 L 20 120/72 98 01/30/18 23:20 01/30/18 23:20 01/30/18 23:20 01/30/18 23:20 01/30/18 23:20 Intake and Output: 01/31/18 01/31/18 06:59 18:59 Intake Total 480 Output Total 200 Balance 280 - Medications Medications: Current Medications Aspirin (Aspirin Chewable) 81 mg PO DAILY [facility] Last Admin: 01/30/18 10:35 Dose: 81 mg Clopidogrel Bisulfate (Plavix) 75 mg PO DAILY [facility] Last Admin: 01/30/18 10:35 Dose: 75 mg Heparin Sodium (Porcine) (Heparin) 5,000 units SC Q8 [facility] Last Admin: 01/31/18 05:40 Dose: 5,000 units Pantoprazole Sodium (Protonix Inj) 40 mg IVP DAILY [facility] Last Admin: 01/30/18 10:35 Dose: 40 mg Rosuvastatin Calcium (Crestor) 10 mg PO HS [facility] Last Admin: 01/30/18 21:55 Dose: 10 mg - Labs Labs: 01/31/18 06:06 01/31/18 06:06 PT 13.4 SECONDS (9.7-12.2) H 01/26/18 13:59 INR 1.2 01/26/18 13:59 APTT 35 SECONDS (21-34) H 01/26/18 13:59 - Constitutional Appears: No Acute Distress - Head Exam Head Exam: NORMAL INSPECTION - Neurological Exam Neurological Exam: Alert, Awake, Oriented x3 Neuro motor strength exam: Left Upper Extremity: 3, Right Upper Extremity: 5, Left Lower Extremity: 3, Right Lower Extremity: 5 Additional comments: Neurological unchanged from previous examination. Assessment and Plan (1) Ischemic stroke Assessment & Plan: Case discussed with Dr. Bennett, continue all current medical, physical, and occupational therapies. Recommend social media intern to assist the patient with his medications. Status: Acute
--- NOTE | 2018-01-31 14:34 | CP.PCM.PN ---
<Patricia Rush E - Last Filed: 01/31/18 14:31> Subjective - Date & Time of Evaluation Date of Evaluation: 01/31/18 Time of Evaluation: 07:50 - Subjective Subjective: Medicine progress note ( Dr. Springer's service) Patient was seen and examined at bedside. Patient reports that he is doing well. Patient denies chest pain, SOB, palpitations, headache, blurry vision, nausea, vomiting, fever and chills. Patient still have left side weakness, Left arm> Left leg with minor improvement. Patient continues to work with physical therapy. Objective - Vital Signs/Intake and Output Vital Signs (last 24 hours): Temp Pulse Resp BP Pulse Ox 97.7 F 53 L 18 134/75 97 01/31/18 09:42 01/31/18 09:42 01/31/18 09:42 01/31/18 09:42 01/31/18 09:42 Intake and Output: 01/31/18 01/31/18 06:59 18:59 Intake Total 480 Output Total 200 Balance 280 - Medications Medications: Current Medications Aspirin (Aspirin Chewable) 81 mg PO DAILY [facility] Last Admin: 01/31/18 11:01 Dose: 81 mg Clopidogrel Bisulfate (Plavix) 75 mg PO DAILY [facility] Last Admin: 01/31/18 11:01 Dose: 75 mg Heparin Sodium (Porcine) (Heparin) 5,000 units SC Q8 [facility] Last Admin: 01/31/18 14:08 Dose: 5,000 units Pantoprazole Sodium (Protonix Inj) 40 mg IVP DAILY [facility] Last Admin: 01/31/18 11:01 Dose: 40 mg Rosuvastatin Calcium (Crestor) 10 mg PO HS [facility] Last Admin: 01/30/18 21:55 Dose: 10 mg - Labs Labs: 01/31/18 06:06 01/31/18 06:06 PT 13.4 SECONDS (9.7-12.2) H 01/26/18 13:59 INR 1.2 01/26/18 13:59 APTT 35 SECONDS (21-34) H 01/26/18 13:59 - Constitutional Appears: Well, No Acute Distress - Head Exam Head Exam: ATRAUMATIC, NORMAL INSPECTION - Eye Exam Eye Exam: EOMI, Normal appearance - ENT Exam ENT Exam: Mucous Membranes Moist - Respiratory Exam Respiratory Exam: Clear to Ausculation Bilateral, NORMAL BREATHING PATTERN. absent: Rhonchi, Wheezes, Respiratory Distress - Cardiovascular Exam Cardiovascular Exam: REGULAR RHYTHM, +S1, +S2 - GI/Abdominal Exam GI & Abdominal Exam: Soft, Normal Bowel Sounds. absent: Firm, Guarding, Rigid, Tenderness - Neurological Exam Neurological Exam: Alert, Awake Neuro motor strength exam: Left Upper Extremity: 4, Right Upper Extremity: 4, Left Lower Extremity: 4, Right Lower Extremity: 4 - Psychiatric Exam Psychiatric exam: Depressed - Skin Skin Exam: Normal Color Assessment and Plan (1) CVA (cerebral vascular accident) Assessment & Plan: Neurology consult, Dr. Ceron consult---> Help appreciated * Management as per recommendation Imaging/ Labs : Lipid panel: TGL: 153, Chol: 174m LDL: 111, HDL: 35 Hemoglobin A1c: 5.[address] (01/26/18): Posterior right MCA territory subacute infarction. Head/Neck CTA (01/26/18): Plaque noted within the common carotid arteries bilaterally. * 2. The right cervical carotid is attenuated and appears lower in density and smaller caliber than on the contralateral side. * 3. Mucosal thickening within maxillary sinuses bilaterally. 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 * 4. 1.2 cm low density lesion in the right lobe of the thyroid. Recommend further evaluation with thyroid ultrasound. Carotid Doppler (01/27/18): Duplex scan does not suggest hemodynamically significant stenosis of the left and right extracranial carotid arteries Brain MRI (01/27/18): Large subacute right MCA territory infarction involving the parietal lobe with mild gyral edema without mass effect or midline shift. Small focus of subacute infarction in the right frontal subcortical white matter. Mild chronic microangiopathic changes and mild age-related global parenchymal volume loss. Echocardiogram (01/27/18): EF (60-65%), Mild TR & Pulmonic valve regurgitation. Recommendation to continue ASA 81mg PO daily and Plavix 75mg PO daily H ypercoagulable lab workup: Antiphospholipid antibodies, Factor V mutation, Protein S activity * Protein C activity within normal limit Medication and management: * Aspirin 81mg PO daily * Plavix 75mg PO daily * Crestor 10mg PO HS * Speech, occupational and physical therapy: As per physical therapy documentation, patient will benefit from ROM skilled PT in order to improve transfers and Gait patient is clinically evolving in presentation. * As per physical therapy evaluation, patient will need to be discharge to a rehabilitation Status: Acute (2) Thyroid lesion Assessment & Plan: Imaging/Lab: Head/Neck CTA (01/26/18): 1.2 cm low density lesion in the right lobe of the thyroid. Recommend further evaluation with thyroid ultrasound. Thyroid Ultrasound (01/27/18): Right midpole multi-septated cystic nodule measuring up to 1.4 cm. TSH: 1.10 Status: Acute (3) Substance abuse Assessment & Plan: UDS on admission: + Cocaine * avoid beta jelani Status: Acute (4) Bradycardia Assessment & Plan: Asymptomatic * Continue to monitor on telemetry Status: Acute (5) Prophylactic measure Assessment & Plan: GI: Protonix 40mg IVP daily DVT: Heparin 5,000 units SC Q8H, SCDs Speech, occupational and physical therapy * As per speech therapy, advanced bite diet and thin liquids Disposition: Patient needs more physical therapy and possibly rehabilitation upon discharge; will follow up with outpatient case manager regarding access to rehabilitation. At the moment, patient is unable to obtain [facility] placement as he is pending annie care All plans and management discussed with Dr. Springer Status: Acute <Pardeep Springer - Last Filed: 01/31/18 14:58> Objective - Vital Signs/Intake and Output Vital Signs (last 24 hours): Temp Pulse Resp BP Pulse Ox 97.7 F 53 L 18 134/75 97 01/31/18 09:42 01/31/18 09:42 01/31/18 09:42 01/31/18 09:42 01/31/18 09:42 Intake and Output: 01/31/18 01/31/18 06:59 18:59 Intake Total 480 Output Total 200 Balance 280 - Medications Medications: Current Medications Aspirin (Aspirin Chewable) 81 mg PO DAILY [facility] Last Admin: 01/31/18 11:01 Dose: 81 mg Clopidogrel Bisulfate (Plavix) 75 mg PO DAILY [facility] Last Admin: 01/31/18 11:01 Dose: 75 mg Heparin Sodium (Porcine) (Heparin) 5,000 units SC Q8 [facility] Last Admin: 01/31/18 14:08 Dose: 5,000 units Pantoprazole Sodium (Protonix Ec Tab) 40 mg PO DAILY [facility] Rosuvastatin Calcium (Crestor) 10 mg PO HS [facility] Last Admin: 03/07/18 21:55 Dose: 10 mg - Labs Labs: 01/31/18 06:06 01/31/18 06:06 PT 13.4 SECONDS (9.7-12.2) H 01/26/18 13:59 INR 1.2 01/26/18 13:59 APTT 35 SECONDS (21-34) H 01/26/18 13:59 Attending/Attestation - Attestation I have personally seen and examined this patient.: Yes I have fully participated in the care of the patient.: Yes I have reviewed all pertinent clinical information, including history, physical exam and plan: Yes Notes (Text): 01/31/18 14:58 Medical attending: Patient was seen and examined by me, agree with the above note by medical administrative specialist. At first glance during exam it seemed as if the patient had somewhat more strength in his left arm and left leg. Previously when we had seen him he had a lot of drifting we tried to lift his left arm and left leg. Today he was able to lift his left arm and leg on his own and hold there for 10 seconds. We did not walk the patient, however per report to the nursing taking care of the patient be observed him during physical therapy and he appears to have more weakness than he did before. So at this time were continue physical therapy. He remains on statin, aspirin, Plavix, blood pressure Thank you very much, Pardeep Springer
--- NOTE | 2018-01-31 17:59 | CARD ---
APPROVED REPORT EKG Measurement Heart [id number] CA [id number] <Conclusion> Marked sinus bradycardia Minimal voltage criteria for LVH, may be normal variant Inferior infarct, age undetermined T wave abnormality, consider anterolateral ischemia Abnormal ECG
--- NOTE | 2018-01-31 18:19 | CARD ---
APPROVED REPORT EKG Measurement Heart [id number] HI [id number] <Conclusion> Normal sinus rhythm Minimal voltage criteria for LVH, may be normal variant Possible Inferior infarct, age undetermined T wave abnormality, consider lateral ischemia Abnormal ECG
[2018-01-31 21:18] LABS: CARDIOLIPIN AB (IGM) <12 MPL (<=12); PHOSPHATIDYLSERINE AB IGA <20 U/mL (<20); PHOSPHATIDYLSERINE AB IGG <10 U/mL (<10); PHOSPHATIDYLSERINE AB IGM <25 U/mL (<25)
--- NOTE | 2018-02-01 07:24 | CP.PCM.PN ---
Subjective - Date & Time of Evaluation Date of Evaluation: 02/01/18 Time of Evaluation: 07:21 - Subjective Subjective: Mr. Morocho was seen and examined at the bedside. He is alert, oriented. He is able to follow simple command and answer all questions. He denies any headache, blurred vision, dizziness, lightheadedness, nausea, or vomiting. He is able to move all extremities with left side weaker than the left, but with improvement. He is able to raise his left upper extremity above his head and maintained it for 10 seconds.There was no untoward events overnight. Objective - Vital Signs/Intake and Output Vital Signs (last 24 hours): Temp Pulse Resp BP Pulse Ox 97.8 F 52 L 20 107/68 97 01/31/18 23:15 02/01/18 00:53 01/31/18 23:15 01/31/18 23:15 01/31/18 23:15 Intake and Output: 02/01/18 02/01/18 06:59 18:59 Output Total 600 Balance -600 - Medications Medications: Current Medications Aspirin (Aspirin Chewable) 81 mg PO DAILY [facility] Last Admin: 01/31/18 11:01 Dose: 81 mg Clopidogrel Bisulfate (Plavix) 75 mg PO DAILY [facility] Last Admin: 01/31/18 11:01 Dose: 75 mg Heparin Sodium (Porcine) (Heparin) 5,000 units SC Q8 [facility] Last Admin: 02/01/18 05:21 Dose: 5,000 units Pantoprazole Sodium (Protonix Ec Tab) 40 mg PO DAILY [facility] Rosuvastatin Calcium (Crestor) 10 mg PO HS [facility] Last Admin: 01/31/18 21:16 Dose: 10 mg - Labs Labs: 01/31/18 06:06 01/31/18 06:06 PT 13.4 SECONDS (9.7-12.2) H 01/26/18 13:59 INR 1.2 01/26/18 13:59 APTT 35 SECONDS (21-34) H 01/26/18 13:59 - Constitutional Appears: No Acute Distress - Head Exam Head Exam: NORMAL INSPECTION - Neurological Exam Neurological Exam: Alert, Awake, Oriented x3 Neuro motor strength exam: Left Upper Extremity: 3, Right Upper Extremity: 5, Left Lower Extremity: 4, Right Lower Extremity: 5 Additional comments: Neurological improved from previous examination, he is able to raise his arm above his head and maintained it for 10 seconds. Assessment and Plan (1) Ischemic stroke Assessment & Plan: Case discussed with Dr. Bennett, continue all current medical, physical, and occupational therapies. Recommend to follow up with an outpatient neurologist upon discharge and social services manager to assist patient with his medications. Status: Acute
[2018-02-01 07:42] LABS: BASO # 0.1 K/uL (0.0-0.2); BASO % 1.3 % (0.0-2.0); EOS # 0.4 K/uL (0.0-0.7); EOS % 4.3 % (0.0-4.0); HEMOGLOBIN 14.3 g/dL (12.0-18.0); LYMPH % 23.3 % (20.0-40.0); MEAN CELL VOLUME 85.2 fL (80.0-94.0); MEAN CORPUSCULAR HEMOGLOBIN 28.6 pg (27.0-31.0); MEAN CORPUSCULAR HGB CONC 33.6 g/dL (33.0-37.0); MEAN PLATELET VOLUME 7.8 fL (7.2-11.7); MONO # 0.5 K/uL (0.0-0.8); MONO % 5.8 % (0.0-10.0); NEUT # 5.7 K/uL (1.8-7.0); NEUT % 65.3 % (50.0-75.0); NRBC % 0.1 % (0.0-2.0); RBC 4.98 Mil/uL (4.40-5.90); RED CELL DISTRIBUTION WIDTH 14.7 % (11.5-14.5); WHITE BLOOD COUNT 8.7 K/uL (4.8-10.8)
[2018-02-01 07:45] LABS: ALB/GLOB RATIO 1.1 (1.0-2.1); ALBUMIN 3.5 g/dL (3.5-5.0); ALT/SGPT 48 U/L (21-72); AST/SGOT 55 U/L (17-59); BLOOD UREA NITROGEN 13 mg/dL (9-20); CALCIUM 8.9 mg/dl (8.6-10.4); GFR AFRICAN-AMERICAN > 60; GFR NON-AFRICAN AMERICAN > 60
[2018-02-01] MEDS: Pantoprazole 40 mg EC Tab PO SCH (10:25)
--- NOTE | 2018-02-01 15:30 | CP.PCM.PN ---
<Patricia Rush E - Last Filed: 02/01/18 15:27> Subjective - Date & Time of Evaluation Date of Evaluation: 02/01/18 Time of Evaluation: 07:50 - Subjective Subjective: Medicine progress note ( Dr. Springer's service) Patient was seen and examined at bedside. Patient reports that he is doing well. Patient denies chest pain, SOB, palpitations, headache, blurry vision, nausea, vomiting, fever and chills. Patient still have left side weakness, Left arm> Left leg with improvement; patient is able to raise is left arm and left leg in air over 10 seconds. Patient continues to work with physical therapy. As per nursing, patient did not have any acute issues overnight. Objective - Vital Signs/Intake and Output Vital Signs (last 24 hours): Temp Pulse Resp BP Pulse Ox 98.1 F 49 L 20 105/59 L 99 02/01/18 07:15 02/01/18 07:15 02/01/18 07:15 02/01/18 07:15 02/01/18 07:15 Intake and Output: 02/01/18 02/01/18 06:59 18:59 Output Total 600 Balance -600 - Medications Medications: Current Medications Aspirin (Aspirin Chewable) 81 mg PO DAILY [facility] Last Admin: 02/01/18 10:25 Dose: 81 mg Clopidogrel Bisulfate (Plavix) 75 mg PO DAILY [facility] Last Admin: 02/01/18 10:25 Dose: 75 mg Pantoprazole Sodium (Protonix Ec Tab) 40 mg PO DAILY [facility] Last Admin: 02/01/18 10:25 Dose: 40 mg Rosuvastatin Calcium (Crestor) 10 mg PO HS [facility] Last Admin: 01/31/18 21:16 Dose: 10 mg - Labs Labs: 02/01/18 07:17 02/01/18 07:17 PT 13.4 SECONDS (9.7-12.2) H 01/26/18 13:59 INR 1.2 01/26/18 13:59 APTT 35 SECONDS (21-34) H 01/26/18 13:59 - Constitutional Appears: Well, No Acute Distress - Head Exam Head Exam: ATRAUMATIC, NORMAL INSPECTION - Eye Exam Eye Exam: EOMI, Normal appearance - ENT Exam ENT Exam: Mucous Membranes Moist - Respiratory Exam Respiratory Exam: Clear to Ausculation Bilateral, NORMAL BREATHING PATTERN. absent: Rhonchi, Wheezes, Respiratory Distress - Cardiovascular Exam Cardiovascular Exam: REGULAR RHYTHM, +S1, +S2. absent: Murmur - GI/Abdominal Exam GI & Abdominal Exam: Soft, Normal Bowel Sounds. absent: Firm, Guarding, Rigid, Tenderness - Extremities Exam Extremities Exam: Normal Inspection. absent: Calf Tenderness, Pedal Edema - Neurological Exam Neurological Exam: Alert, Awake, Oriented x3 Neuro motor strength exam: Left Upper Extremity: 4, Right Upper Extremity: 4, Left Lower Extremity: 4, Right Lower Extremity: 4 - Psychiatric Exam Psychiatric exam: Normal Affect - Skin Skin Exam: Normal Color Assessment and Plan (1) CVA (cerebral vascular accident) Assessment & Plan: Neurology consult, Dr. Ceron consult---> Help appreciated * Management as per recommendation Imaging/ Labs : Lipid panel: TGL: 153, Chol: 174m LDL: 111, HDL: 35 Hemoglobin A1c: 5.[address] (01/26/18): Posterior right MCA territory subacute infarction. Head/Neck CTA (01/26/18): Plaque noted within the common carotid arteries bilaterally. * 2. The right cervical carotid is attenuated and appears lower in density and smaller caliber than on the contralateral side. * 3. Mucosal thickening within maxillary sinuses bilaterally. 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 * 4. 1.2 cm low density lesion in the right lobe of the thyroid. Recommend further evaluation with thyroid ultrasound. Carotid Doppler (01/27/18): Duplex scan does not suggest hemodynamically significant stenosis of the left and right extracranial carotid arteries Brain MRI (01/27/18): Large subacute right MCA territory infarction involving the parietal lobe with mild gyral edema without mass effect or midline shift. Small focus of subacute infarction in the right frontal subcortical white matter. Mild chronic microangiopathic changes and mild age-related global parenchymal volume loss. Echocardiogram (01/27/18): EF (60-65%), Mild TR & Pulmonic valve regurgitation. Recommendation to continue ASA 81mg PO daily and Plavix 75mg PO daily H ypercoagulable lab workup: Antiphospholipid antibodies, Factor V mutation, Protein S activity * Protein C activity within normal limit Medication and management: * Aspirin 81mg PO daily * Plavix 75mg PO daily * Crestor 10mg PO HS * Speech, occupational and physical therapy: As per physical therapy documentation, patient will benefit from ROM skilled PT in order to improve transfers and Gait patient is clinically evolving in presentation. * As per physical therapy evaluation, patient will need to be discharge to a rehabilitation Status: Acute (2) Thyroid lesion Assessment & Plan: Imaging/Lab: Head/Neck CTA (01/26/18): 1.2 cm low density lesion in the right lobe of the thyroid. Recommend further evaluation with thyroid ultrasound. Thyroid Ultrasound (01/27/18): Right midpole multi-septated cystic nodule measuring up to 1.4 cm. TSH: 1.10 Status: Acute (3) Substance abuse Assessment & Plan: UDS on admission: + Cocaine * avoid beta jelani Status: Acute (4) Bradycardia Assessment & Plan: Asymptomatic * Continue to monitor on telemetry Status: Acute (5) Prophylactic measure Assessment & Plan: GI: Protonix 40mg PO daily DVT: Lovenox 30mg SC daily, SCDs Speech, occupational and physical therapy * As per speech therapy, advanced bite diet and thin liquids Disposition: Patient needs more physical therapy and possibly rehabilitation upon discharge; will follow up with behavioral health case manager regarding access to rehabilitation. All plans and management discussed with Dr. Springer Status: Acute <Pardeep Springer - Last Filed: 02/01/18 15:53> Objective - Vital Signs/Intake and Output Vital Signs (last 24 hours): Temp Pulse Resp BP Pulse Ox 98.1 F 49 L 20 105/59 L 99 02/01/18 07:15 02/01/18 07:15 02/01/18 07:15 02/01/18 07:15 02/01/18 07:15 Intake and Output: 02/01/18 02/01/18 06:59 18:59 Output Total 600 Balance -600 - Medications Medications: Current Medications Aspirin (Aspirin Chewable) 81 mg PO DAILY [facility] Last Admin: 02/01/18 10:25 Dose: 81 mg Clopidogrel Bisulfate (Plavix) 75 mg PO DAILY [facility] Last Admin: 02/01/18 10:25 Dose: 75 mg Enoxaparin Sodium (Lovenox) 30 mg SC DAILY [facility] Pantoprazole Sodium (Protonix Ec Tab) 40 mg PO DAILY [facility] Last Admin: 02/01/18 10:25 Dose: 40 mg Rosuvastatin Calcium (Crestor) 10 mg PO HS [facility] Last Admin: 01/31/18 21:16 Dose: 10 mg - Labs Labs: 02/01/18 07:17 02/01/18 07:17 PT 13.4 SECONDS (9.7-12.2) H 01/26/18 13:59 INR 1.2 01/26/18 13:59 APTT 35 SECONDS (21-34) H 01/26/18 13:59 Attending/Attestation - Attestation I have personally seen and examined this patient.: Yes I have fully participated in the care of the patient.: Yes I have reviewed all pertinent clinical information, including history, physical exam and plan: Yes Notes (Text): 02/01/18 15:53 Medical attending: Patient was seen and examined by me Agree with the above note by the resident The patient was out of bed to chair. He was able to elevate his left arm and hold it in the air for greater than 10 seconds. He was also able to do the same with his left leg as well he was also observed to be bending his left knee however weekly. His muscle strength is about a 4/5 both upper and lower extremity. In the meantime were encouraging the patient to work with physical therapy. He remains on aspirin, Plavix, statin Because of his social situation he's not able to go to subacute rehabilitation, so we emphasized the importance of doing physical therapy here Pardeep Springer
[2018-02-02 06:18] LABS: BASO # 0.1 K/uL (0.0-0.2); BASO % 1.4 % (0.0-2.0); EOS # 0.4 K/uL (0.0-0.7); EOS % 4.8 % (0.0-4.0); HEMOGLOBIN 14.1 g/dL (12.0-18.0); LYMPH # 1.9 K/uL (1.0-4.3); LYMPH % 23.2 % (20.0-40.0); MEAN CELL VOLUME 84.8 fL (80.0-94.0); MEAN CORPUSCULAR HEMOGLOBIN 28.5 pg (27.0-31.0); MEAN CORPUSCULAR HGB CONC 33.6 g/dL (33.0-37.0); MEAN PLATELET VOLUME 7.6 fL (7.2-11.7); MONO # 0.6 K/uL (0.0-0.8); MONO % 7.8 % (0.0-10.0); NEUT % 62.8 % (50.0-75.0); NRBC % 0.1 % (0.0-2.0); RBC 4.96 Mil/uL (4.40-5.90); RED CELL DISTRIBUTION WIDTH 14.3 % (11.5-14.5)
[2018-02-02 06:39] LABS: ALB/GLOB RATIO 1.1 (1.0-2.1); ALBUMIN 3.5 g/dL (3.5-5.0); ALT/SGPT 77 U/L (21-72); AST/SGOT 64 U/L (17-59); BLOOD UREA NITROGEN 14 mg/dL (9-20); CALCIUM 8.9 mg/dl (8.6-10.4); GFR AFRICAN-AMERICAN > 60; GFR NON-AFRICAN AMERICAN > 60
--- NOTE | 2018-02-02 06:50 | CP.PCM.PN ---
<Daniel Wilkes - Last Filed: 02/02/18 06:47> Subjective - Date & Time of Evaluation Date of Evaluation: 02/02/18 Time of Evaluation: 06:47 - Subjective Subjective: PGY1 Medicine Note for Dr. Springer Patient seen and examine this morning at bedside. No acute events overnight. Patient reports they are doing well and currently has no complaints at this time. Objective - Vital Signs/Intake and Output Vital Signs (last 24 hours): Temp Pulse Resp BP Pulse Ox 97.8 F 53 L 20 117/51 L 97 02/01/18 23:20 02/01/18 23:20 02/01/18 23:20 02/01/18 23:20 02/01/18 23:20 Intake and Output: 02/01/18 02/02/18 18:59 06:59 Intake Total 540 480 Output Total 800 400 Balance -260 80 - Medications Medications: Current Medications Aspirin (Aspirin Chewable) 81 mg PO DAILY [facility] Last Admin: 02/01/18 10:25 Dose: 81 mg Clopidogrel Bisulfate (Plavix) 75 mg PO DAILY [facility] Last Admin: 02/01/18 10:25 Dose: 75 mg Enoxaparin Sodium (Lovenox) 30 mg SC DAILY [facility] Pantoprazole Sodium (Protonix Ec Tab) 40 mg PO DAILY [facility] Last Admin: 02/01/18 10:25 Dose: 40 mg Rosuvastatin Calcium (Crestor) 10 mg PO HS [facility] Last Admin: 02/01/18 21:47 Dose: 10 mg - Labs Labs: 02/02/18 06:04 02/02/18 06:04 PT 13.4 SECONDS (9.7-12.2) H 01/26/18 13:59 INR 1.2 01/26/18 13:59 APTT 35 SECONDS (21-34) H 01/26/18 13:59 - Constitutional Appears: No Acute Distress - Head Exam Head Exam: ATRAUMATIC, NORMOCEPHALIC - Eye Exam Eye Exam: EOMI, Normal appearance - ENT Exam ENT Exam: Mucous Membranes Moist - Respiratory Exam Respiratory Exam: Clear to Ausculation Bilateral, NORMAL BREATHING PATTERN. absent: Accessory Muscle Use, Rales, Rhonchi, Wheezes, Respiratory Distress - Cardiovascular Exam Cardiovascular Exam: REGULAR RHYTHM, +S1, +S2 - GI/Abdominal Exam GI & Abdominal Exam: Soft, Normal Bowel Sounds. absent: Distended, Firm, Guarding, Rigid, Tenderness - Extremities Exam Extremities Exam: Normal Inspection. absent: Calf Tenderness, Pedal Edema - Neurological Exam Neurological Exam: Alert, Awake, Oriented x3 - Psychiatric Exam Psychiatric exam: Normal Affect, Normal Mood - Skin Skin Exam: Dry, Warm Assessment and Plan - Assessment and Plan (Free Text) Plan: (1) CVA (cerebral vascular accident) Assessment & Plan: Neurology consult, Dr. Ceron consult---> Help appreciated * Management as per recommendation Imaging/ Labs : Lipid panel: TGL: 153, Chol: 174m LDL: 111, HDL: 35 Hemoglobin A1c: 5.[address] (01/26/18): Posterior right MCA territory subacute infarction. Head/Neck CTA (01/26/18): Plaque noted within the common carotid arteries bilaterally. * 2. The right cervical carotid is attenuated and appears lower in density and smaller caliber than on the contralateral side. * 3. Mucosal thickening within maxillary sinuses bilaterally. 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 * 4. 1.2 cm low density lesion in the right lobe of the thyroid. Recommend further evaluation with thyroid ultrasound. Carotid Doppler (01/27/18): Duplex scan does not suggest hemodynamically significant stenosis of the left and right extracranial carotid arteries Brain MRI (01/27/18): Large subacute right MCA territory infarction involving the parietal lobe with mild gyral edema without mass effect or midline shift. Small focus of subacute infarction in the right frontal subcortical white matter. Mild chronic microangiopathic changes and mild age-related global parenchymal volume loss. Echocardiogram (01/27/18): EF (60-65%), Mild TR & Pulmonic valve regurgitation. Recommendation to continue ASA 81mg PO daily and Plavix 75mg PO daily H ypercoagulable lab workup: Antiphospholipid antibodies, Factor V mutation, Protein S activity * Protein C activity within normal limit Medication and management: * Aspirin 81mg PO daily * Plavix 75mg PO daily * Crestor 10mg PO HS * Speech, occupational and physical therapy: As per physical therapy documentation, patient will benefit from ROM skilled PT in order to improve transfers and Gait patient is clinically evolving in presentation. * As per physical therapy evaluation, patient will need to be discharge to a rehabilitation Status: Acute (2) Thyroid lesion Assessment & Plan: Imaging/Lab: Head/Neck CTA (01/26/18): 1.2 cm low density lesion in the right lobe of the thyroid. Recommend further evaluation with thyroid ultrasound. Thyroid Ultrasound (01/27/18): Right midpole multi-septated cystic nodule measuring up to 1.4 cm. TSH: 1.10 Status: Acute (3) Substance abuse Assessment & Plan: UDS on admission: + Cocaine * avoid beta jelani Status: Acute (4) Bradycardia Assessment & Plan: Asymptomatic * Continue to monitor on telemetry Status: Acute (5) Prophylactic measure Assessment & Plan: GI: Protonix 40mg PO daily DVT: Lovenox 30mg SC daily, SCDs Speech, occupational and physical therapy * As per speech therapy, advanced bite diet and thin liquids Disposition: Patient needs more physical therapy and possibly rehabilitation upon discharge; will follow up with case preparer and liner regarding access to rehabilitation. No update at this time. All plans and management will be discussed with Dr. Racheal Sykesn PGY1 <Pardeep Springer - Last Filed: 02/02/18 09:31> Objective - Vital Signs/Intake and Output Vital Signs (last 24 hours): Temp Pulse Resp BP Pulse Ox 98.5 F 48 L 18 102/60 99 02/02/18 09:00 02/02/18 09:00 02/02/18 09:00 02/02/18 09:00 02/02/18 09:00 Intake and Output: 02/02/18 02/02/18 06:59 18:59 Intake Total 480 Output Total 400 Balance 80 - Medications Medications: Current Medications Aspirin (Aspirin Chewable) 81 mg PO DAILY [facility] Last Admin: 02/01/18 10:25 Dose: 81 mg Clopidogrel Bisulfate (Plavix) 75 mg PO DAILY [facility] Last Admin: 02/01/18 10:25 Dose: 75 mg Enoxaparin Sodium (Lovenox) 30 mg SC DAILY [facility] Pantoprazole Sodium (Protonix Ec Tab) 40 mg PO DAILY [facility] Last Admin: 02/01/18 10:25 Dose: 40 mg Rosuvastatin Calcium (Crestor) 10 mg PO HS [facility] Last Admin: 02/01/18 21:47 Dose: 10 mg - Labs Labs: 02/02/18 06:04 02/02/18 06:04 PT 13.4 SECONDS (9.7-12.2) H 01/26/18 13:59 INR 1.2 01/26/18 13:59 APTT 35 SECONDS (21-34) H 01/26/18 13:59 Attending/Attestation - Attestation I have personally seen and examined this patient.: Yes I have fully participated in the care of the patient.: Yes I have reviewed all pertinent clinical information, including history, physical exam and plan: Yes Notes (Text): 02/02/18 09:25 Medical attending: Patient was seen and examined by me. Agree with the above note by the resident The patient according to PT has gained more mobility with the left upper and left lower extremity - it is still weak and he requires maximum assist when they work with him So at this time because of his social situation our plan is to see how much improvement we can get with PT here. ASA, Plavix, Statin thank you Pardeep Springer
[2018-02-02] MEDS: Enoxaparin 30 mg Syringe SC SCH (10:07)
[2018-02-02] MEDS: Pantoprazole 40 mg EC Tab PO SCH (10:07)
--- NOTE | 2018-02-03 06:48 | CP.PCM.PN ---
<Daniel Wilkes - Last Filed: 02/03/18 06:45> Subjective - Date & Time of Evaluation Date of Evaluation: 02/03/18 Time of Evaluation: 06:45 - Subjective Subjective: PGY1 Medicine Note for Dr. Springer Patient seen and examine this morning at bedside. No acute events overnight. Patient is resting comfortably in bed. Currently has no complaints at this time. Objective - Vital Signs/Intake and Output Vital Signs (last 24 hours): Temp Pulse Resp BP Pulse Ox 98.3 F 50 L 20 106/52 L 96 02/03/18 04:30 02/03/18 04:30 02/03/18 04:30 02/03/18 04:45 02/03/18 04:30 Intake and Output: 02/02/18 02/03/18 18:59 07:59 Intake Total 20 Output Total 800 Balance -780 - Medications Medications: Current Medications Aspirin (Aspirin Chewable) 81 mg PO DAILY [facility] Last Admin: 02/02/18 10:07 Dose: 81 mg Clopidogrel Bisulfate (Plavix) 75 mg PO DAILY [facility] Last Admin: 02/02/18 10:07 Dose: 75 mg Enoxaparin Sodium (Lovenox) 30 mg SC DAILY [facility] Last Admin: 02/02/18 10:07 Dose: 30 mg Pantoprazole Sodium (Protonix Ec Tab) 40 mg PO DAILY [facility] Last Admin: 02/02/18 10:07 Dose: 40 mg Rosuvastatin Calcium (Crestor) 10 mg PO HS [facility] Last Admin: 02/02/18 21:20 Dose: 10 mg - Labs Labs: 02/02/18 06:04 02/02/18 06:04 PT 13.4 SECONDS (9.7-12.2) H 01/26/18 13:59 INR 1.2 01/26/18 13:59 APTT 35 SECONDS (21-34) H 01/26/18 13:59 - Constitutional Appears: Non-toxic, No Acute Distress - Head Exam Head Exam: ATRAUMATIC, NORMOCEPHALIC - Eye Exam Eye Exam: EOMI. absent: Scleral icterus - ENT Exam ENT Exam: Mucous Membranes Moist - Respiratory Exam Respiratory Exam: Clear to Ausculation Bilateral, NORMAL BREATHING PATTERN. absent: Accessory Muscle Use, Rales, Rhonchi, Wheezes, Respiratory Distress - Cardiovascular Exam Cardiovascular Exam: REGULAR RHYTHM, +S1, +S2 - GI/Abdominal Exam GI & Abdominal Exam: Soft, Normal Bowel Sounds. absent: Distended, Firm, Guarding, Rigid, Tenderness, Rebound - Extremities Exam Extremities Exam: absent: Calf Tenderness, Pedal Edema Additional comments: Moving all four extremities. - Neurological Exam Neurological Exam: Alert, Awake Neuro motor strength exam: Left Upper Extremity: 3 (improving), Right Upper Extremity: 5, Left Lower Extremity: 4, Right Lower Extremity: 5 - Psychiatric Exam Psychiatric exam: Normal Affect, Normal Mood - Skin Skin Exam: Dry, Warm Assessment and Plan - Assessment and Plan (Free Text) Plan: (1) CVA (cerebral vascular accident) Assessment & Plan: Neurology consult, Dr. Ceron consult---> Help appreciated * Management as per recommendation Imaging/ Labs : Lipid panel: TGL: 153, Chol: 174m LDL: 111, HDL: 35 Hemoglobin A1c: 5.[address] (01/26/18): Posterior right MCA territory subacute infarction. Head/Neck CTA (01/26/18): Plaque noted within the common carotid arteries bilaterally. * 2. The right cervical carotid is attenuated and appears lower in density and smaller caliber than on the contralateral side. * 3. Mucosal thickening within maxillary sinuses bilaterally. 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 * 4. 1.2 cm low density lesion in the right lobe of the thyroid. Recommend further evaluation with thyroid ultrasound. Carotid Doppler (01/27/18): Duplex scan does not suggest hemodynamically significant stenosis of the left and right extracranial carotid arteries Brain MRI (01/27/18): Large subacute right MCA territory infarction involving the parietal lobe with mild gyral edema without mass effect or midline shift. Small focus of subacute infarction in the right frontal subcortical white matter. Mild chronic microangiopathic changes and mild age-related global parenchymal volume loss. Echocardiogram (01/27/18): EF (60-65%), Mild TR & Pulmonic valve regurgitation. Recommendation to continue ASA 81mg PO daily and Plavix 75mg PO daily H ypercoagulable lab workup: Antiphospholipid antibodies, Factor V mutation, Protein S activity * Protein C activity within normal limit Medication and management: * Aspirin 81mg PO daily * Plavix 75mg PO daily * Crestor 10mg PO HS * Speech, occupational and physical therapy: As per physical therapy documentation, patient will benefit from ROM skilled PT in order to improve transfers and Gait patient is clinically evolving in presentation. * As per physical therapy evaluation, patient will need to be discharge to a rehabilitation Status: Acute (2) Thyroid lesion Assessment & Plan: Imaging/Lab: Head/Neck CTA (01/26/18): 1.2 cm low density lesion in the right lobe of the thyroid. Recommend further evaluation with thyroid ultrasound. Thyroid Ultrasound (01/27/18): Right midpole multi-septated cystic nodule measuring up to 1.4 cm. TSH: 1.10 Status: Acute (3) Substance abuse Assessment & Plan: UDS on admission: + Cocaine * avoid beta jelani Status: Acute (4) Bradycardia Assessment & Plan: Asymptomatic * Continue to monitor on telemetry Status: Acute (5) Prophylactic measure Assessment & Plan: GI: Protonix 40mg PO daily DVT: Lovenox 30mg SC daily, SCDs Speech, occupational and physical therapy * As per speech therapy, advanced bite diet and thin liquids Disposition: Per physical therapy, patient's mobility is improving. Due to his current social situation, will await returned case inspector regarding access to rehabilitation. No update at this time. All plans and management will be discussed with Dr. Racheal Sanchez Katrin PGY1 <Pardeep Springer - Last Filed: 02/03/18 09:38> Objective - Vital Signs/Intake and Output Vital Signs (last 24 hours): Temp Pulse Resp BP Pulse Ox 97.7 F 59 L 20 106/69 99 02/03/18 08:48 02/03/18 08:48 02/03/18 08:48 02/03/18 08:48 02/03/18 08:48 Intake and Output: 02/03/18 02/03/18 06:59 18:59 Intake Total Output Total Balance - Medications Medications: Current Medications Aspirin (Aspirin Chewable) 81 mg PO DAILY [facility] Last Admin: 02/02/18 10:07 Dose: 81 mg Clopidogrel Bisulfate (Plavix) 75 mg PO DAILY [facility] Last Admin: 02/02/18 10:07 Dose: 75 mg Enoxaparin Sodium (Lovenox) 30 mg SC DAILY [facility] Last Admin: 02/02/18 10:07 Dose: 30 mg Pantoprazole Sodium (Protonix Ec Tab) 40 mg PO DAILY [facility] Last Admin: 02/02/18 10:07 Dose: 40 mg Rosuvastatin Calcium (Crestor) 10 mg PO HS [facility] Last Admin: 02/02/18 21:20 Dose: 10 mg - Labs Labs: 02/03/18 08:02 02/03/18 08:02 PT 13.4 SECONDS (9.7-12.2) H 01/26/18 13:59 INR 1.2 01/26/18 13:59 APTT 35 SECONDS (21-34) H 01/26/18 13:59 Attending/Attestation - Attestation I have personally seen and examined this patient.: Yes I have fully participated in the care of the patient.: Yes I have reviewed all pertinent clinical information, including history, physical exam and plan: Yes Notes (Text): Medical attending: Patient was seen and examined by me. Agree with the above note by the resident The patient was not in any distress He was able to show me that there's been improvement with his left arm and left leg. His hand grasp is very weak. He is able to easily elevate left arm past 90 degree for > 10 seconds now. His left leg is also stronger as well He explains he uses the cane to go to the bathroom slowly. Possibly sometime this week he can be DC so long as he is steady with walking with a cane thank you Pardeep Springer
[2018-02-03 08:10] LABS: BASO # 0.1 K/uL (0.0-0.2); BASO % 1.2 % (0.0-2.0); EOS # 0.4 K/uL (0.0-0.7); EOS % 4.4 % (0.0-4.0); HEMOGLOBIN 15.1 g/dL (12.0-18.0); LYMPH # 1.9 K/uL (1.0-4.3); LYMPH % 22.9 % (20.0-40.0); MEAN CELL VOLUME 85.1 fL (80.0-94.0); MEAN CORPUSCULAR HEMOGLOBIN 29.3 pg (27.0-31.0); MEAN CORPUSCULAR HGB CONC 34.4 g/dL (33.0-37.0); MEAN PLATELET VOLUME 7.6 fL (7.2-11.7); MONO # 0.6 K/uL (0.0-0.8); NEUT # 5.4 K/uL (1.8-7.0); NEUT % 64.5 % (50.0-75.0); NRBC % 0.1 % (0.0-2.0); RBC 5.14 Mil/uL (4.40-5.90); RED CELL DISTRIBUTION WIDTH 14.3 % (11.5-14.5); WHITE BLOOD COUNT 8.4 K/uL (4.8-10.8)
[2018-02-03 08:42] LABS: ALB/GLOB RATIO 1.1 (1.0-2.1); ALBUMIN 3.8 g/dL (3.5-5.0); ALT/SGPT 111 U/L (21-72); AST/SGOT 92 U/L (17-59); BLOOD UREA NITROGEN 12 mg/dL (9-20); CALCIUM 9.2 mg/dl (8.6-10.4); GFR AFRICAN-AMERICAN > 60; GFR NON-AFRICAN AMERICAN > 60
[2018-02-03] MEDS: Enoxaparin 30 mg Syringe SC SCH (09:53)
[2018-02-03] MEDS: Pantoprazole 40 mg EC Tab PO SCH (09:54)
[2018-02-04 07:32] LABS: BASO # 0.2 K/uL (0.0-0.2); BASO % 1.8 % (0.0-2.0); EOS # 0.4 K/uL (0.0-0.7); EOS % 4.6 % (0.0-4.0); HEMOGLOBIN 14.4 g/dL (12.0-18.0); MEAN CELL VOLUME 85.1 fL (80.0-94.0); MEAN CORPUSCULAR HEMOGLOBIN 29.3 pg (27.0-31.0); MEAN CORPUSCULAR HGB CONC 34.4 g/dL (33.0-37.0); MEAN PLATELET VOLUME 7.4 fL (7.2-11.7); MONO # 0.7 K/uL (0.0-0.8); MONO % 7.6 % (0.0-10.0); NEUT # 6.1 K/uL (1.8-7.0); NRBC % 0.1 % (0.0-2.0); RBC 4.92 Mil/uL (4.40-5.90); RED CELL DISTRIBUTION WIDTH 14.4 % (11.5-14.5); WHITE BLOOD COUNT 9.4 K/uL (4.8-10.8)
[2018-02-04 07:49] LABS: ALB/GLOB RATIO 1.1 (1.0-2.1); ALBUMIN 3.7 g/dL (3.5-5.0); ALT/SGPT 114 U/L (21-72); AST/SGOT 73 U/L (17-59); BLOOD UREA NITROGEN 15 mg/dL (9-20); CALCIUM 8.9 mg/dl (8.6-10.4); GFR AFRICAN-AMERICAN > 60; GFR NON-AFRICAN AMERICAN > 60
--- NOTE | 2018-02-04 07:57 | CP.PCM.PN ---
<Samm Olivares - Last Filed: 02/04/18 11:17> Subjective - Date & Time of Evaluation Date of Evaluation: 02/04/18 Time of Evaluation: 07:10 - Subjective Subjective: Medicine progress note for Dr. Baker Patient seen and examined. Patient reporting no acute complaints at this time. Patient states that his left arm remains weak and he gets intermittent pain in the arm. Objective - Vital Signs/Intake and Output Vital Signs (last 24 hours): Temp Pulse Resp BP Pulse Ox 97.8 F 59 L 20 117/71 99 02/03/18 23:15 02/03/18 23:15 02/03/18 23:15 02/03/18 23:15 02/03/18 23:15 Intake and Output: 02/04/18 02/04/18 06:59 18:59 Output Total 200 Balance -200 - Medications Medications: Current Medications Aspirin (Aspirin Chewable) 81 mg PO DAILY [facility] Last Admin: 02/03/18 09:54 Dose: 81 mg Clopidogrel Bisulfate (Plavix) 75 mg PO DAILY [facility] Last Admin: 02/03/18 09:54 Dose: 75 mg Enoxaparin Sodium (Lovenox) 30 mg SC DAILY [facility] Last Admin: 02/03/18 09:53 Dose: 30 mg Pantoprazole Sodium (Protonix Ec Tab) 40 mg PO DAILY [facility] Last Admin: 02/03/18 09:54 Dose: 40 mg Rosuvastatin Calcium (Crestor) 10 mg PO HS [facility] Last Admin: 02/03/18 21:26 Dose: 10 mg - Labs Labs: 02/04/18 07:24 02/04/18 07:24 PT 13.4 SECONDS (9.7-12.2) H 01/26/18 13:59 INR 1.2 01/26/18 13:59 APTT 35 SECONDS (21-34) H 01/26/18 13:59 - Additional Findings Additional findings: - Constitutional Appears: Non-toxic, No Acute Distress - Head Exam Head Exam: ATRAUMATIC, NORMOCEPHALIC - Eye Exam Eye Exam: EOMI, Normal appearance - ENT Exam ENT Exam: Mucous Membranes Moist - Respiratory Exam Respiratory Exam: Clear to Auscultation Bilateral, NORMAL BREATHING PATTERN. absent: Accessory Muscle Use, Rales, Rhonchi, Wheezes, Respiratory Distress - Cardiovascular Exam Cardiovascular Exam: REGULAR RHYTHM, +S1, +S2 - GI/Abdominal Exam GI & Abdominal Exam: Soft, Normal Bowel Sounds. absent: Distended, Firm, Guarding, Rigid, Tenderness, Rebound - Extremities Exam Extremities Exam: absent: Calf Tenderness, Pedal Edema Additional comments: Moving all four extremities. - Neurological Exam Neurological Exam: Alert, Awake Neuro motor strength exam: Left Upper Extremity: 4 (improving), Right Upper Extremity: 5, Left Lower Extremity: 4, Right Lower Extremity: 5 - Psychiatric Exam Psychiatric exam: Normal Affect, Normal Mood - Skin Skin Exam: Dry, Warm Assessment and Plan - Assessment and Plan (Free Text) Plan: CVA (cerebral vascular accident) Neurology consult, Dr. Ceron consult---> Help appreciated * Management as per recommendation Lipid panel: TGL: 153, Chol: 174m LDL: 111, HDL: 35 Hemoglobin A1c: 5.[address] (01/26/18): Posterior right MCA territory subacute infarction. Head/Neck CTA (01/26/18): * 1. Plaque noted within the common carotid arteries bilaterally. * 2. The right cervical carotid is attenuated and appears lower in density and smaller caliber than on the contralateral side. * 3. Mucosal thickening within maxillary sinuses bilaterally. 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 * 4. 1.2 cm low density lesion in the right lobe of the thyroid. Recommend further evaluation with thyroid ultrasound. Carotid Doppler (01/27/18): Duplex scan does not suggest hemodynamically significant stenosis of the left and right extracranial carotid arteries Brain MRI (01/27/18): Large subacute right MCA territory infarction involving the parietal lobe with mild gyral edema without mass effect or midline shift. Small focus of subacute infarction in the right frontal subcortical white matter. Mild chronic microangiopathic changes and mild age-related global parenchymal volume loss. Echocardiogram (01/27/18): EF (60-65%), Mild TR & Pulmonic valve regurgitation. Recommendation to continue ASA 81mg PO daily and Plavix 75mg PO daily Hypercoagulable lab workup: Antiphospholipid antibodies, Factor V mutation, Protein S activity * Protein C activity within normal limit Medication and management: * Aspirin 81mg PO daily * Plavix 75mg PO daily * Crestor 10mg PO HS * Speech, occupational and physical therapy: As per physical therapy documentation, patient will benefit from ROM skilled PT in order to improve transfers and Gait patient is clinically evolving in presentation. * As per physical therapy evaluation, patient will need to be discharge to a rehabilitation Thyroid lesion Head/Neck CTA (01/26/18): 1.2 cm low density lesion in the right lobe of the thyroid. Recommend further evaluation with thyroid ultrasound. Thyroid Ultrasound (01/27/18): Right midpole multi-septated cystic nodule measuring up to 1.4 cm. TSH: 1.10 Substance abuse UDS on admission: + Cocaine * avoid beta jelani Counseled on cessation Bradycardia Asymptomatic * Continue to monitor on telemetry Prophylactic measure GI: Protonix 40mg PO daily DVT: Lovenox 30mg SC daily, SCDs Speech, occupational and physical therapy * As per speech therapy, advanced bite diet and thin liquids Disposition: Per physical therapy, patient's is improving; however, he is unable to go home at this time. Due to his current social situation, will await rehabilitation caseworker regarding access to rehabilitation. No update at this time. Discussed with Dr. Samuel Olivares PGY-1 <Blanca Baker - Last Filed: 02/06/18 14:38> Objective - Vital Signs/Intake and Output Vital Signs (last 24 hours): Temp Pulse Resp BP Pulse Ox 97.9 F 50 L 20 110/62 97 02/06/18 07:00 02/06/18 07:00 02/06/18 07:00 02/06/18 07:00 02/06/18 07:00 - Medications Medications: Current Medications Aspirin (Aspirin Chewable) 81 mg PO DAILY [facility] Last Admin: 02/06/18 10:45 Dose: 81 mg Clopidogrel Bisulfate (Plavix) 75 mg PO DAILY [facility] Last Admin: 02/06/18 10:45 Dose: 75 mg Enoxaparin Sodium (Lovenox) 30 mg SC DAILY [facility] Last Admin: 02/06/18 10:45 Dose: 30 mg Pantoprazole Sodium (Protonix Ec Tab) 40 mg PO DAILY [facility] Last Admin: 02/06/18 10:45 Dose: 40 mg Rosuvastatin Calcium (Crestor) 10 mg PO HS [facility] Last Admin: 02/05/18 23:09 Dose: 10 mg - Labs Labs: 02/06/18 07:12 02/06/18 07:12 PT 13.4 SECONDS (9.7-12.2) H 01/26/18 13:59 INR 1.2 01/26/18 13:59 APTT 35 SECONDS (21-34) H 01/26/18 13:59 Attending/Attestation - Attestation I have personally seen and examined this patient.: Yes I have fully participated in the care of the patient.: Yes I have reviewed all pertinent clinical information, including history, physical exam and plan: Yes Notes (Text): Patient was seen and examined Has left arm weakness. has no family support.No insurance d/w PT Patient is unsteady to go home d/w the resident I agree with the documentation of the resident's assessment and the plan
--- NOTE | 2018-02-04 08:21 | CP.PCM.PN ---
Subjective - Date & Time of Evaluation Date of Evaluation: 02/04/18 Time of Evaluation: 08:20 - Subjective Subjective: Mr. Morocho was seen and examined at the bedside. He is alert, oriented. He is able to follow simple command and answer all questions. He denies any headache, blurred vision, dizziness, lightheadedness, nausea, or vomiting. He is able to move all extremities with left side weaker than the left, but with improvement. He is able to raise his left upper extremity above his head and maintained it for 10 seconds.There was no untoward events overnight. Objective - Vital Signs/Intake and Output Vital Signs (last 24 hours): Temp Pulse Resp BP Pulse Ox 97.9 F 52 L 20 106/61 96 02/04/18 08:15 02/04/18 08:15 02/04/18 08:15 02/04/18 08:15 02/04/18 08:15 Intake and Output: 02/04/18 02/04/18 06:59 18:59 Output Total 200 Balance -200 - Medications Medications: Current Medications Aspirin (Aspirin Chewable) 81 mg PO DAILY [facility] Last Admin: 02/03/18 09:54 Dose: 81 mg Clopidogrel Bisulfate (Plavix) 75 mg PO DAILY [facility] Last Admin: 02/03/18 09:54 Dose: 75 mg Enoxaparin Sodium (Lovenox) 30 mg SC DAILY [facility] Last Admin: 02/03/18 09:53 Dose: 30 mg Pantoprazole Sodium (Protonix Ec Tab) 40 mg PO DAILY [facility] Last Admin: 02/03/18 09:54 Dose: 40 mg Rosuvastatin Calcium (Crestor) 10 mg PO [facility] Last Admin: 02/03/18 21:26 Dose: 10 mg - Labs Labs: 02/04/18 07:24 02/04/18 07:24 PT 13.4 SECONDS (9.7-12.2) H 01/26/18 13:59 INR 1.2 01/26/18 13:59 APTT 35 SECONDS (21-34) H 01/26/18 13:59 - Constitutional Appears: No Acute Distress - Head Exam Head Exam: NORMAL INSPECTION - Neurological Exam Neurological Exam: Alert, Awake Neuro motor strength exam: Left Upper Extremity: 3, Right Upper Extremity: 5, Left Lower Extremity: 4, Right Lower Extremity: 5 Additional comments: Neurological unchanged from previous examination. Assessment and Plan (1) Ischemic stroke Assessment & Plan: Case discussed with Dr. Ceron, continue all current medical, physical, and occupational therapies. Recommend to follow up with an outpatient neurologist upon discharge and psychiatric social worker supervisor to assist patient with his medications. Status: Acute
[2018-02-04] MEDS: Enoxaparin 30 mg Syringe SC SCH (10:17)
[2018-02-04] MEDS: Pantoprazole 40 mg EC Tab PO SCH (10:17)
[2018-02-05 06:31] LABS: BASO # 0.1 K/uL (0.0-0.2); EOS # 0.4 K/uL (0.0-0.7); EOS % 4.5 % (0.0-4.0); HEMOGLOBIN 14.5 g/dL (12.0-18.0); LYMPH % 22.1 % (20.0-40.0); MEAN CELL VOLUME 85.1 fL (80.0-94.0); MEAN CORPUSCULAR HEMOGLOBIN 28.6 pg (27.0-31.0); MEAN CORPUSCULAR HGB CONC 33.6 g/dL (33.0-37.0); MEAN PLATELET VOLUME 7.4 fL (7.2-11.7); MONO # 0.8 K/uL (0.0-0.8); MONO % 8.8 % (0.0-10.0); NEUT # 5.7 K/uL (1.8-7.0); NEUT % 63.6 % (50.0-75.0); RBC 5.08 Mil/uL (4.40-5.90); RED CELL DISTRIBUTION WIDTH 14.4 % (11.5-14.5)
[2018-02-05 06:48] LABS: ALB/GLOB RATIO 1.1 (1.0-2.1); ALBUMIN 3.8 g/dL (3.5-5.0); ALT/SGPT 86 U/L (21-72); AST/SGOT 47 U/L (17-59); BLOOD UREA NITROGEN 17 mg/dL (9-20); GFR AFRICAN-AMERICAN > 60; GFR NON-AFRICAN AMERICAN > 60
--- NOTE | 2018-02-05 06:58 | CP.PCM.PN ---
<Samm Olivares - Last Filed: 02/05/18 13:08> Subjective - Date & Time of Evaluation Date of Evaluation: 02/05/18 Time of Evaluation: 07:10 - Subjective Subjective: Medicine progress note for Dr. Baker Patient seen and examined. Patient with no acute complaints at this time. Patient witnessed doing arm exercises at bedside. ROM greatly improved. Objective - Vital Signs/Intake and Output Vital Signs (last 24 hours): Temp Pulse Resp BP Pulse Ox 98.1 F 52 L 20 116/67 97 02/04/18 23:10 02/04/18 23:10 02/04/18 23:10 02/04/18 23:10 02/04/18 23:10 Intake and Output: 02/04/18 02/05/18 18:59 06:59 Intake Total 320 Output Total 400 Balance -80 - Medications Medications: Current Medications Aspirin (Aspirin Chewable) 81 mg PO DAILY [facility] Last Admin: 02/04/18 10:17 Dose: 81 mg Clopidogrel Bisulfate (Plavix) 75 mg PO DAILY [facility] Last Admin: 02/04/18 10:17 Dose: 75 mg Enoxaparin Sodium (Lovenox) 30 mg SC DAILY [facility] Last Admin: 02/04/18 10:17 Dose: 30 mg Pantoprazole Sodium (Protonix Ec Tab) 40 mg PO DAILY [facility] Last Admin: 02/04/18 10:17 Dose: 40 mg Rosuvastatin Calcium (Crestor) 10 mg PO HS [facility] Last Admin: 02/04/18 21:43 Dose: 10 mg - Labs Labs: 02/05/18 06:14 02/05/18 06:14 PT 13.4 SECONDS (9.7-12.2) H 01/26/18 13:59 INR 1.2 01/26/18 13:59 APTT 35 SECONDS (21-34) H 01/26/18 13:59 - Additional Findings Additional findings: - Constitutional Appears: Non-toxic, No Acute Distress - Head Exam Head Exam: ATRAUMATIC, NORMOCEPHALIC - Eye Exam Eye Exam: EOMI, Normal appearance - ENT Exam ENT Exam: Mucous Membranes Moist - Respiratory Exam Respiratory Exam: Clear to Auscultation Bilateral, NORMAL BREATHING PATTERN. absent: Accessory Muscle Use, Rales, Rhonchi, Wheezes, Respiratory Distress - Cardiovascular Exam Cardiovascular Exam: REGULAR RHYTHM, +S1, +S2 - GI/Abdominal Exam GI & Abdominal Exam: Soft, Normal Bowel Sounds. absent: Distended, Firm, Guarding, Rigid, Tenderness, Rebound - Extremities Exam Extremities Exam: absent: Calf Tenderness, Pedal Edema Additional comments: Moving all four extremities. - Neurological Exam Neurological Exam: Alert, Awake Neuro motor strength exam: Left Upper Extremity: 4 (improving), Right Upper Extremity: 5, Left Lower Extremity: 4, Right Lower Extremity: 5 - Psychiatric Exam Psychiatric exam: Normal Affect, Normal Mood - Skin Skin Exam: Dry, Warm Assessment and Plan - Assessment and Plan (Free Text) Plan: CVA (cerebral vascular accident) Neurology consult, Dr. Ceron consult---> Help appreciated * Management as per recommendation Lipid panel: TGL: 153, Chol: 174m LDL: 111, HDL: 35 Hemoglobin A1c: 5.[address] (01/26/18): Posterior right MCA territory subacute infarction. Head/Neck CTA (01/26/18): * 1. Plaque noted within the common carotid arteries bilaterally. * 2. The right cervical carotid is attenuated and appears lower in density and smaller caliber than on the contralateral side. * 3. Mucosal thickening within maxillary sinuses bilaterally. 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 * 4. 1.2 cm low density lesion in the right lobe of the thyroid. Recommend further evaluation with thyroid ultrasound. Carotid Doppler (01/27/18): Duplex scan does not suggest hemodynamically significant stenosis of the left and right extracranial carotid arteries Brain MRI (01/27/18): Large subacute right MCA territory infarction involving the parietal lobe with mild gyral edema without mass effect or midline shift. Small focus of subacute infarction in the right frontal subcortical white matter. Mild chronic microangiopathic changes and mild age-related global parenchymal volume loss. Echocardiogram (01/27/18): EF (60-65%), Mild TR & Pulmonic valve regurgitation. Recommendation to continue ASA 81mg PO daily and Plavix 75mg PO daily Hypercoagulable lab workup: Antiphospholipid antibodies, Factor V mutation, Protein S activity * Protein C activity within normal limit Medication and management: * Aspirin 81mg PO daily * Plavix 75mg PO daily * Crestor 10mg PO HS * Speech, occupational and physical therapy: As per physical therapy documentation, patient will benefit from ROM skilled PT in order to improve transfers and Gait patient is clinically evolving in presentation. * As per physical therapy evaluation, patient will need to be discharge to a rehabilitation Thyroid lesion Head/Neck CTA (01/26/18): 1.2 cm low density lesion in the right lobe of the thyroid. Recommend further evaluation with thyroid ultrasound. Thyroid Ultrasound (01/27/18): Right midpole multi-septated cystic nodule measuring up to 1.4 cm. TSH: 1.10 Substance abuse UDS on admission: + Cocaine * avoid beta jelani Counseled on cessation and patient voiced that he will stop using cocaine Bradycardia Asymptomatic * Continue to monitor on telemetry Prophylactic measure GI: Protonix 40mg PO daily DVT: Lovenox 30mg SC daily, SCDs Speech, occupational and physical therapy * As per speech therapy, advanced bite diet and thin liquids Disposition: Per physical therapy, patient's is improving; however, he is unable to go home at this time. Due to his current social situation, will await director of casework regarding access to rehabilitation. No update at this time. Discussed with Dr. Samuel Olivares PGY-1 <Blanca Baker - Last Filed: 02/06/18 14:41> Objective - Vital Signs/Intake and Output Vital Signs (last 24 hours): Temp Pulse Resp BP Pulse Ox 97.9 F 50 L 20 110/62 97 02/06/18 07:00 02/06/18 07:00 02/06/18 07:00 02/06/18 07:00 02/06/18 07:00 - Medications Medications: Current Medications Aspirin (Aspirin Chewable) 81 mg PO DAILY [facility] Last Admin: 02/06/18 10:45 Dose: 81 mg Clopidogrel Bisulfate (Plavix) 75 mg PO DAILY [facility] Last Admin: 02/06/18 10:45 Dose: 75 mg Enoxaparin Sodium (Lovenox) 30 mg SC DAILY [facility] Last Admin: 02/06/18 10:45 Dose: 30 mg Pantoprazole Sodium (Protonix Ec Tab) 40 mg PO DAILY [facility] Last Admin: 02/06/18 10:45 Dose: 40 mg Rosuvastatin Calcium (Crestor) 10 mg PO HS [facility] Last Admin: 02/05/18 23:09 Dose: 10 mg - Labs Labs: 02/06/18 07:12 02/06/18 07:12 PT 13.4 SECONDS (9.7-12.2) H 01/26/18 13:59 INR 1.2 01/26/18 13:59 APTT 35 SECONDS (21-34) H 01/26/18 13:59 Attending/Attestation - Attestation I have personally seen and examined this patient.: Yes I have fully participated in the care of the patient.: Yes I have reviewed all pertinent clinical information, including history, physical exam and plan: Yes Notes (Text): Patient was seen and examined No complain.His left arm strength is improving gradually. patient was asked to do training himself d/w the resident. I agree with the resident's documentation of the assessment and the plan
[2018-02-05] MEDS: Pantoprazole 40 mg EC Tab PO SCH (09:29)
[2018-02-05] MEDS: Enoxaparin 30 mg Syringe SC SCH (09:29)
--- NOTE | 2018-02-06 07:00 | CP.PCM.PN ---
<Samm Olivares - Last Filed: 02/06/18 11:21> Subjective - Date & Time of Evaluation Date of Evaluation: 02/06/18 Time of Evaluation: 07:30 - Subjective Subjective: Medicine progress note for Dr. Baker Patient seen and examined. Patient has no acute complaints at this time. He continues to work on improving left sided upper and lower body strength. Objective - Vital Signs/Intake and Output Vital Signs (last 24 hours): Temp Pulse Resp BP Pulse Ox 98 F 50 L 20 115/61 98 02/05/18 23:10 02/05/18 23:10 02/05/18 23:10 02/05/18 23:10 02/05/18 23:10 - Medications Medications: Current Medications Aspirin (Aspirin Chewable) 81 mg PO DAILY [facility] Last Admin: 02/05/18 09:29 Dose: 81 mg Clopidogrel Bisulfate (Plavix) 75 mg PO DAILY [facility] Last Admin: 02/05/18 09:29 Dose: 75 mg Enoxaparin Sodium (Lovenox) 30 mg SC DAILY [facility] Last Admin: 02/05/18 09:29 Dose: 30 mg Pantoprazole Sodium (Protonix Ec Tab) 40 mg PO DAILY [facility] Last Admin: 02/05/18 09:29 Dose: 40 mg Rosuvastatin Calcium (Crestor) 10 mg PO HS [facility] Last Admin: 02/05/18 23:09 Dose: 10 mg - Labs Labs: 02/05/18 06:14 02/05/18 06:14 PT 13.4 SECONDS (9.7-12.2) H 01/26/18 13:59 INR 1.2 01/26/18 13:59 APTT 35 SECONDS (21-34) H 01/26/18 13:59 - Additional Findings Additional findings: - Constitutional Appears: Non-toxic, No Acute Distress - Head Exam Head Exam: ATRAUMATIC, NORMOCEPHALIC - Eye Exam Eye Exam: EOMI, Normal appearance - ENT Exam ENT Exam: Mucous Membranes Moist - Respiratory Exam Respiratory Exam: Clear to Auscultation Bilateral, NORMAL BREATHING PATTERN. absent: Accessory Muscle Use, Rales, Rhonchi, Wheezes, Respiratory Distress - Cardiovascular Exam Cardiovascular Exam: REGULAR RHYTHM, +S1, +S2 - GI/Abdominal Exam GI & Abdominal Exam: Soft, Normal Bowel Sounds. absent: Distended, Firm, Guarding, Rigid, Tenderness, Rebound - Extremities Exam Extremities Exam: absent: Calf Tenderness, Pedal Edema Additional comments: Moving all four extremities. - Neurological Exam Neurological Exam: Alert, Awake Neuro motor strength exam: Left Upper Extremity: 4 (improving), Right Upper Extremity: 5, Left Lower Extremity: 4, Right Lower Extremity: 5 - Psychiatric Exam Psychiatric exam: Normal Affect, Normal Mood - Skin Skin Exam: Dry, Warm Assessment and Plan - Assessment and Plan (Free Text) Plan: CVA (cerebral vascular accident) Neurology consult, Dr. Ceron consult---> Help appreciated * Management as per recommendation Lipid panel: TGL: 153, Chol: 174m LDL: 111, HDL: 35 Hemoglobin A1c: 5.[address] (01/26/18): Posterior right MCA territory subacute infarction. Head/Neck CTA (01/26/18): * 1. Plaque noted within the common carotid arteries bilaterally. * 2. The right cervical carotid is attenuated and appears lower in density and smaller caliber than on the contralateral side. * 3. Mucosal thickening within maxillary sinuses bilaterally. 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 * 4. 1.2 cm low density lesion in the right lobe of the thyroid. Recommend further evaluation with thyroid ultrasound. Carotid Doppler (01/27/18): Duplex scan does not suggest hemodynamically significant stenosis of the left and right extracranial carotid arteries Brain MRI (01/27/18): Large subacute right MCA territory infarction involving the parietal lobe with mild gyral edema without mass effect or midline shift. Small focus of subacute infarction in the right frontal subcortical white matter. Mild chronic microangiopathic changes and mild age-related global parenchymal volume loss. Echocardiogram (01/27/18): EF (60-65%), Mild TR & Pulmonic valve regurgitation. Recommendation to continue ASA 81mg PO daily and Plavix 75mg PO daily Hypercoagulable lab workup: Antiphospholipid antibodies, Factor V mutation, Protein S activity * Protein C activity within normal limit Medication and management: * Aspirin 81mg PO daily * Plavix 75mg PO daily * Crestor 10mg PO HS * Speech, occupational and physical therapy: As per physical therapy documentation, patient will benefit from ROM skilled PT in order to improve transfers and Gait patient is clinically evolving in presentation. * As per physical therapy evaluation, patient will need to be discharge to a rehabilitation Thyroid lesion Head/Neck CTA (01/26/18): 1.2 cm low density lesion in the right lobe of the thyroid. Recommend further evaluation with thyroid ultrasound. Thyroid Ultrasound (01/27/18): Right midpole multi-septated cystic nodule measuring up to 1.4 cm. TSH: 1.10 Substance abuse UDS on admission: + Cocaine * avoid beta jelani Counseled on cessation and patient voiced that he will stop using cocaine Bradycardia Asymptomatic * Continue to monitor on telemetry Prophylactic measure GI: Protonix 40mg PO daily DVT: Lovenox 30mg SC daily, SCDs Speech, occupational and physical therapy * As per speech therapy, advanced bite diet and thin liquids Disposition: Per physical therapy, patient's is improving; however, he is unable to go home at this time. Due to his current social situation, will await manager rn case regarding access to rehabilitation. Patient lives on the second floor without elevator access. He lives with an old roommate who is unable to assist him. Discussed with Dr. Samuel Olivares PGY-1 <Blanca Baker - Last Filed: 02/06/18 14:44> Objective - Vital Signs/Intake and Output Vital Signs (last 24 hours): Temp Pulse Resp BP Pulse Ox 97.9 F 50 L 20 110/62 97 02/06/18 07:00 02/06/18 07:00 02/06/18 07:00 02/06/18 07:00 02/06/18 07:00 - Medications Medications: Current Medications Aspirin (Aspirin Chewable) 81 mg PO DAILY [facility] Last Admin: 02/06/18 10:45 Dose: 81 mg Clopidogrel Bisulfate (Plavix) 75 mg PO DAILY [facility] Last Admin: 02/06/18 10:45 Dose: 75 mg Enoxaparin Sodium (Lovenox) 30 mg SC DAILY [facility] Last Admin: 02/06/18 10:45 Dose: 30 mg Pantoprazole Sodium (Protonix Ec Tab) 40 mg PO DAILY [facility] Last Admin: 02/06/18 10:45 Dose: 40 mg Rosuvastatin Calcium (Crestor) 10 mg PO HS [facility] Last Admin: 02/05/18 23:09 Dose: 10 mg - Labs Labs: 02/06/18 07:12 02/06/18 07:12 PT 13.4 SECONDS (9.7-12.2) H 01/26/18 13:59 INR 1.2 01/26/18 13:59 APTT 35 SECONDS (21-34) H 01/26/18 13:59 Attending/Attestation - Attestation I have personally seen and examined this patient.: Yes I have fully participated in the care of the patient.: Yes I have reviewed all pertinent clinical information, including history, physical exam and plan: Yes Notes (Text): Patient's left arm strength is improving . He is very motivated to do exercise himself. Patient lives on the second floor without elevator access. He lives with an old roommate who is unable to assist him. d/w PT. Not ready for discharge. No family support d/w the resident. I agree with the documentation. patient was seen and examined 02/06/18 14:41
[2018-02-06 07:30] LABS: BASO # 0.1 K/uL (0.0-0.2); BASO % 1.3 % (0.0-2.0); EOS # 0.4 K/uL (0.0-0.7); EOS % 4.4 % (0.0-4.0); LYMPH # 1.8 K/uL (1.0-4.3); MEAN CELL VOLUME 84.5 fL (80.0-94.0); MEAN CORPUSCULAR HEMOGLOBIN 28.8 pg (27.0-31.0); MEAN CORPUSCULAR HGB CONC 34.1 g/dL (33.0-37.0); MEAN PLATELET VOLUME 7.5 fL (7.2-11.7); MONO # 0.7 K/uL (0.0-0.8); MONO % 8.6 % (0.0-10.0); NEUT # 5.2 K/uL (1.8-7.0); NEUT % 63.7 % (50.0-75.0); RBC 4.84 Mil/uL (4.40-5.90); RED CELL DISTRIBUTION WIDTH 14.3 % (11.5-14.5); WHITE BLOOD COUNT 8.1 K/uL (4.8-10.8)
--- NOTE | 2018-02-06 07:45 | CP.PCM.PN ---
Subjective - Date & Time of Evaluation Date of Evaluation: 02/06/18 Time of Evaluation: 07:44 - Subjective Subjective: Mr. Morocoh was seen and examined at the bedside. He is alert, oriented. He is able to follow simple command and answer all questions. He denies any headache, blurred vision, dizziness, lightheadedness, nausea, or vomiting. He is able to move all extremities with left side weaker than the left, but with improvement. He is able to raise his left upper extremity above his head and maintained it for 10 seconds.There was no untoward events overnight. Objective - Vital Signs/Intake and Output Vital Signs (last 24 hours): Temp Pulse Resp BP Pulse Ox 98 F 50 L 20 115/61 98 02/05/18 23:10 02/05/18 23:10 02/05/18 23:10 02/05/18 23:10 02/05/18 23:10 - Medications Medications: Current Medications Aspirin (Aspirin Chewable) 81 mg PO DAILY [facility] Last Admin: 02/05/18 09:29 Dose: 81 mg Clopidogrel Bisulfate (Plavix) 75 mg PO DAILY [facility] Last Admin: 02/05/18 09:29 Dose: 75 mg Enoxaparin Sodium (Lovenox) 30 mg SC DAILY [facility] Last Admin: 02/05/18 09:29 Dose: 30 mg Pantoprazole Sodium (Protonix Ec Tab) 40 mg PO DAILY [facility] Last Admin: 02/05/18 09:29 Dose: 40 mg Rosuvastatin Calcium (Crestor) 10 mg PO [facility] Last Admin: 02/05/18 23:09 Dose: 10 mg - Labs Labs: 02/06/18 07:12 02/05/18 06:14 PT 13.4 SECONDS (9.7-12.2) H 01/26/18 13:59 INR 1.2 01/26/18 13:59 APTT 35 SECONDS (21-34) H 01/26/18 13:59 - Constitutional Appears: No Acute Distress - Head Exam Head Exam: NORMAL INSPECTION - Neurological Exam Neurological Exam: Alert, Awake, Oriented x3 Neuro motor strength exam: Left Upper Extremity: 4, Right Upper Extremity: 5, Left Lower Extremity: 4, Right Lower Extremity: 5 Additional comments: Neurological unchanged from previous examination. Assessment and Plan (1) Ischemic stroke Assessment & Plan: Case discussed with Dr. Ceron, continue all current medical, physical, and occupational therapies. Recommend to follow up with an outpatient neurologist upon discharge and social security benefits interviewer to assist patient with his medications. Status: Acute
[2018-02-06 07:48] LABS: ALBUMIN 3.6 g/dL (3.5-5.0); ALT/SGPT 69 U/L (21-72); AST/SGOT 36 U/L (17-59); BLOOD UREA NITROGEN 18 mg/dL (9-20); CALCIUM 8.8 mg/dl (8.6-10.4); GFR AFRICAN-AMERICAN > 60; GFR NON-AFRICAN AMERICAN > 60
[2018-02-06] MEDS: Pantoprazole 40 mg EC Tab PO SCH (10:45)
[2018-02-06] MEDS: Enoxaparin 30 mg Syringe SC SCH (10:45)
--- NOTE | 2018-02-07 07:00 | CP.PCM.PN ---
<Samm Olivares - Last Filed: 02/07/18 11:46> Subjective - Date & Time of Evaluation Date of Evaluation: 02/07/18 Time of Evaluation: 07:20 - Subjective Subjective: Medicine progress note for Dr. Baker Patient seen and examined. Patient has no acute complaints at this time. Patient continues to work with physical therapy and do bedside exercises on his own. Objective - Vital Signs/Intake and Output Vital Signs (last 24 hours): Temp Pulse Resp BP Pulse Ox 98 F 52 L 20 116/54 L 97 02/06/18 23:15 02/06/18 23:15 02/06/18 23:15 02/06/18 23:15 02/06/18 23:15 Intake and Output: 02/06/18 02/07/18 18:59 06:59 Intake Total 480 Output Total 951 Balance -471 - Medications Medications: Current Medications Aspirin (Aspirin Chewable) 81 mg PO DAILY [facility] Last Admin: 02/06/18 10:45 Dose: 81 mg Clopidogrel Bisulfate (Plavix) 75 mg PO DAILY [facility] Last Admin: 02/06/18 10:45 Dose: 75 mg Enoxaparin Sodium (Lovenox) 30 mg SC DAILY [facility] Last Admin: 02/06/18 10:45 Dose: 30 mg Pantoprazole Sodium (Protonix Ec Tab) 40 mg PO DAILY [facility] Last Admin: 02/06/18 10:45 Dose: 40 mg Rosuvastatin Calcium (Crestor) 10 mg PO HS [facility] Last Admin: 02/06/18 21:11 Dose: 10 mg - Labs Labs: 02/06/18 07:12 02/06/18 07:12 PT 13.4 SECONDS (9.7-12.2) H 01/26/18 13:59 INR 1.2 01/26/18 13:59 APTT 35 SECONDS (21-34) H 01/26/18 13:59 - Additional Findings Additional findings: - Constitutional Appears: Non-toxic, No Acute Distress - Head Exam Head Exam: ATRAUMATIC, NORMOCEPHALIC - Eye Exam Eye Exam: EOMI, Normal appearance - ENT Exam ENT Exam: Mucous Membranes Moist - Respiratory Exam Respiratory Exam: Clear to Auscultation Bilateral, NORMAL BREATHING PATTERN. absent: Accessory Muscle Use, Rales, Rhonchi, Wheezes, Respiratory Distress - Cardiovascular Exam Cardiovascular Exam: REGULAR RHYTHM, +S1, +S2 - GI/Abdominal Exam GI & Abdominal Exam: Soft, Normal Bowel Sounds. absent: Distended, Firm, Guarding, Rigid, Tenderness, Rebound - Extremities Exam Extremities Exam: absent: Calf Tenderness, Pedal Edema Additional comments: Moving all four extremities. - Neurological Exam Neurological Exam: Alert, Awake Neuro motor strength exam: Left Upper Extremity: 4 (improving), Right Upper Extremity: 5, Left Lower Extremity: 4, Right Lower Extremity: 5 - Psychiatric Exam Psychiatric exam: Normal Affect, Normal Mood - Skin Skin Exam: Dry, Warm Assessment and Plan - Assessment and Plan (Free Text) Plan: CVA (cerebral vascular accident) Neurology consult, Dr. Ceron consult---> Help appreciated * Management as per recommendation Lipid panel: TGL: 153, Chol: 174m LDL: 111, HDL: 35 Hemoglobin A1c: 5.[address] (01/26/18): Posterior right MCA territory subacute infarction. Head/Neck CTA (01/26/18): * 1. Plaque noted within the common carotid arteries bilaterally. * 2. The right cervical carotid is attenuated and appears lower in density and smaller caliber than on the contralateral side. * 3. Mucosal thickening within maxillary sinuses bilaterally. 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 * 4. 1.2 cm low density lesion in the right lobe of the thyroid. Recommend further evaluation with thyroid ultrasound. Carotid Doppler (01/27/18): Duplex scan does not suggest hemodynamically significant stenosis of the left and right extracranial carotid arteries Brain MRI (01/27/18): Large subacute right MCA territory infarction involving the parietal lobe with mild gyral edema without mass effect or midline shift. Small focus of subacute infarction in the right frontal subcortical white matter. Mild chronic microangiopathic changes and mild age-related global parenchymal volume loss. Echocardiogram (01/27/18): EF (60-65%), Mild TR & Pulmonic valve regurgitation. Recommendation to continue ASA 81mg PO daily and Plavix 75mg PO daily Hypercoagulable lab workup: Antiphospholipid antibodies, Factor V mutation, Protein S activity * Protein C activity within normal limit Medication and management: * Aspirin 81mg PO daily * Plavix 75mg PO daily * Crestor 10mg PO HS * Speech, occupational and physical therapy: As per physical therapy documentation, patient will benefit from ROM skilled PT in order to improve transfers and Gait patient is clinically evolving in presentation. * As per physical therapy evaluation, patient will need to be discharge to a rehabilitation Thyroid lesion Head/Neck CTA (01/26/18): 1.2 cm low density lesion in the right lobe of the thyroid. Recommend further evaluation with thyroid ultrasound. Thyroid Ultrasound (01/27/18): Right midpole multi-septated cystic nodule measuring up to 1.4 cm. TSH: 1.10 Substance abuse UDS on admission: + Cocaine * avoid beta jelani Counseled on cessation and patient voiced that he will stop using cocaine Bradycardia Asymptomatic * Continue to monitor on telemetry Prophylactic measure GI: Protonix 40mg PO daily DVT: Lovenox 30mg SC daily, SCDs Speech, occupational and physical therapy * As per speech therapy, advanced bite diet and thin liquids Disposition: Per physical therapy, patient's is improving; however, he is unable to go home at this time. Due to his current social situation, will await rehabilitation case coordinator regarding access to rehabilitation. Patient lives on the second floor without elevator access. He lives with an old roommate who is unable to assist him. Discussed with Dr. Samuel Olivares PGY-1 <Blanca Baker - Last Filed: 02/07/18 15:49> Objective - Vital Signs/Intake and Output Vital Signs (last 24 hours): Temp Pulse Resp BP Pulse Ox 97.7 F 61 20 109/69 98 02/07/18 08:32 02/07/18 08:32 02/07/18 08:32 02/07/18 08:32 02/07/18 08:32 Intake and Output: 02/07/18 02/07/18 06:59 18:59 Intake Total 480 Output Total 951 Balance -471 - Medications Medications: Current Medications Aspirin (Aspirin Chewable) 81 mg PO DAILY [facility] Last Admin: 02/07/18 09:45 Dose: 81 mg Clopidogrel Bisulfate (Plavix) 75 mg PO DAILY [facility] Last Admin: 02/07/18 09:45 Dose: 75 mg Enoxaparin Sodium (Lovenox) 30 mg SC DAILY [facility] Last Admin: 02/07/18 09:45 Dose: 30 mg Pantoprazole Sodium (Protonix Ec Tab) 40 mg PO DAILY [facility] Last Admin: 02/07/18 09:45 Dose: 40 mg Rosuvastatin Calcium (Crestor) 10 mg PO HS [facility] Last Admin: 02/06/18 21:11 Dose: 10 mg - Labs Labs: 02/07/18 08:12 02/07/18 08:12 PT 13.4 SECONDS (9.7-12.2) H 01/26/18 13:59 INR 1.2 01/26/18 13:59 APTT 35 SECONDS (21-34) H 01/26/18 13:59 Attending/Attestation - Attestation I have personally seen and examined this patient.: Yes I have fully participated in the care of the patient.: Yes I have reviewed all pertinent clinical information, including history, physical exam and plan: Yes Notes (Text): Patient was seen and examined He is improving. Patient is not steady enough to go home as per PT. Discussed with the resident. I agree his documentation of the assessment and the plan
--- NOTE | 2018-02-07 07:28 | CP.PCM.PN ---
Subjective - Date & Time of Evaluation Date of Evaluation: 02/07/18 Time of Evaluation: 07:28 - Subjective Subjective: Mr. Morocho was seen and examined at the bedside. He is alert, oriented. He is able to follow simple command and answer all questions. He denies any headache, blurred vision, dizziness, lightheadedness, nausea, or vomiting. He is able to move all extremities with left side weaker than the left, but with improvement. He is able to raise his left upper extremity above his head and maintained it for 20 seconds.There was no untoward events overnight. Objective - Vital Signs/Intake and Output Vital Signs (last 24 hours): Temp Pulse Resp BP Pulse Ox 98 F 52 L 20 116/54 L 97 02/06/18 23:15 02/06/18 23:15 02/06/18 23:15 02/06/18 23:15 02/06/18 23:15 Intake and Output: 02/07/18 02/07/18 06:59 18:59 Intake Total 480 Output Total 951 Balance -471 - Medications Medications: Current Medications Aspirin (Aspirin Chewable) 81 mg PO DAILY [facility] Last Admin: 02/06/18 10:45 Dose: 81 mg Clopidogrel Bisulfate (Plavix) 75 mg PO DAILY [facility] Last Admin: 02/06/18 10:45 Dose: 75 mg Enoxaparin Sodium (Lovenox) 30 mg SC DAILY [facility] Last Admin: 02/06/18 10:45 Dose: 30 mg Pantoprazole Sodium (Protonix Ec Tab) 40 mg PO DAILY [facility] Last Admin: 02/06/18 10:45 Dose: 40 mg Rosuvastatin Calcium (Crestor) 10 mg PO [facility] Last Admin: 02/06/18 21:11 Dose: 10 mg - Labs Labs: 02/06/18 07:12 02/06/18 07:12 PT 13.4 SECONDS (9.7-12.2) H 01/26/18 13:59 INR 1.2 01/26/18 13:59 APTT 35 SECONDS (21-34) H 01/26/18 13:59 - Constitutional Appears: No Acute Distress - Head Exam Head Exam: NORMAL INSPECTION - Neurological Exam Neurological Exam: Alert, Awake Neuro motor strength exam: Left Upper Extremity: 4, Right Upper Extremity: 5, Left Lower Extremity: 4, Right Lower Extremity: 5 Additional comments: Neurological unchanged from previous examination. Assessment and Plan (1) Ischemic stroke Assessment & Plan: Case discussed with Dr. Bennett, continue all current medical, physical, and occupational therapies. Recommend to follow up with an outpatient neurologist upon discharge and nephrology social worker to assist patient with his medications. Status: Acute
[2018-02-07 08:25] LABS: BASO # 0.1 K/uL (0.0-0.2); BASO % 1.5 % (0.0-2.0); EOS # 0.3 K/uL (0.0-0.7); EOS % 3.4 % (0.0-4.0); HEMOGLOBIN 14.5 g/dL (12.0-18.0); LYMPH % 25.1 % (20.0-40.0); MEAN CELL VOLUME 85.2 fL (80.0-94.0); MEAN PLATELET VOLUME 7.3 fL (7.2-11.7); MONO # 0.6 K/uL (0.0-0.8); MONO % 7.2 % (0.0-10.0); NEUT % 62.8 % (50.0-75.0); RED CELL DISTRIBUTION WIDTH 14.5 % (11.5-14.5)
[2018-02-07 08:37] LABS: ALBUMIN 3.9 g/dL (3.5-5.0); ALT/SGPT 61 U/L (21-72); AST/SGOT 33 U/L (17-59); BLOOD UREA NITROGEN 15 mg/dL (9-20); GFR AFRICAN-AMERICAN > 60; GFR NON-AFRICAN AMERICAN > 60
[2018-02-07] MEDS: Pantoprazole 40 mg EC Tab PO SCH (09:45)
[2018-02-07] MEDS: Enoxaparin 30 mg Syringe SC SCH (09:45)
[2018-02-08 06:23] LABS: BASO # 0.1 K/uL (0.0-0.2); BASO % 1.3 % (0.0-2.0); EOS # 0.3 K/uL (0.0-0.7); EOS % 4.4 % (0.0-4.0); HEMOGLOBIN 14.1 g/dL (12.0-18.0); LYMPH % 25.3 % (20.0-40.0); MEAN CELL VOLUME 85.3 fL (80.0-94.0); MEAN CORPUSCULAR HEMOGLOBIN 28.7 pg (27.0-31.0); MEAN CORPUSCULAR HGB CONC 33.6 g/dL (33.0-37.0); MEAN PLATELET VOLUME 7.4 fL (7.2-11.7); MONO # 0.8 K/uL (0.0-0.8); MONO % 9.7 % (0.0-10.0); NEUT # 4.6 K/uL (1.8-7.0); NEUT % 59.3 % (50.0-75.0); RBC 4.91 Mil/uL (4.40-5.90); RED CELL DISTRIBUTION WIDTH 14.2 % (11.5-14.5); WHITE BLOOD COUNT 7.8 K/uL (4.8-10.8)
[2018-02-08 06:46] LABS: ALB/GLOB RATIO 1.1 (1.0-2.1); ALBUMIN 3.8 g/dL (3.5-5.0); ALT/SGPT 55 U/L (21-72); AST/SGOT 32 U/L (17-59); BLOOD UREA NITROGEN 15 mg/dL (9-20); CALCIUM 9.1 mg/dl (8.6-10.4); GFR AFRICAN-AMERICAN > 60; GFR NON-AFRICAN AMERICAN > 60
--- NOTE | 2018-02-08 06:56 | CP.PCM.PN ---
<Samm Olivares - Last Filed: 02/08/18 14:00> Subjective - Date & Time of Evaluation Date of Evaluation: 02/08/18 Time of Evaluation: 07:20 - Subjective Subjective: Medicine progress note for Dr. Baker Patient seen and examined. Patient has no acute complaints at this time. No acute events noted. Patient continues to work to improve his ambulatory capacity. Objective - Vital Signs/Intake and Output Vital Signs (last 24 hours): Temp Pulse Resp BP Pulse Ox 98.2 F 52 L 20 111/60 96 02/08/18 01:00 02/08/18 01:00 02/08/18 01:00 02/08/18 01:00 02/08/18 01:00 Intake and Output: 02/07/18 02/08/18 18:59 06:59 Intake Total 690 Output Total 1050 Balance -360 - Medications Medications: Current Medications Aspirin (Aspirin Chewable) 81 mg PO DAILY [facility] Last Admin: 02/07/18 09:45 Dose: 81 mg Clopidogrel Bisulfate (Plavix) 75 mg PO DAILY [facility] Last Admin: 02/07/18 09:45 Dose: 75 mg Enoxaparin Sodium (Lovenox) 30 mg SC DAILY [facility] Last Admin: 02/07/18 09:45 Dose: 30 mg Pantoprazole Sodium (Protonix Ec Tab) 40 mg PO DAILY [facility] Last Admin: 02/07/18 09:45 Dose: 40 mg Rosuvastatin Calcium (Crestor) 10 mg PO HS [facility] Last Admin: 02/07/18 22:25 Dose: 10 mg - Labs Labs: 02/08/18 06:11 02/08/18 06:11 PT 13.4 SECONDS (9.7-12.2) H 01/26/18 13:59 INR 1.2 01/26/18 13:59 APTT 35 SECONDS (21-34) H 01/26/18 13:59 - Additional Findings Additional findings: - Constitutional Appears: Non-toxic, No Acute Distress - Head Exam Head Exam: ATRAUMATIC, NORMOCEPHALIC - Eye Exam Eye Exam: EOMI, Normal appearance - ENT Exam ENT Exam: Mucous Membranes Moist - Respiratory Exam Respiratory Exam: Clear to Auscultation Bilateral, NORMAL BREATHING PATTERN. absent: Accessory Muscle Use, Rales, Rhonchi, Wheezes, Respiratory Distress - Cardiovascular Exam Cardiovascular Exam: REGULAR RHYTHM, +S1, +S2 - GI/Abdominal Exam GI & Abdominal Exam: Soft, Normal Bowel Sounds. absent: Distended, Firm, Guarding, Rigid, Tenderness, Rebound - Extremities Exam Extremities Exam: absent: Calf Tenderness, Pedal Edema Additional comments: Moving all four extremities. - Neurological Exam Neurological Exam: Alert, Awake Neuro motor strength exam: Left Upper Extremity: 4 (improving), Right Upper Extremity: 5, Left Lower Extremity: 4, Right Lower Extremity: 5 - Psychiatric Exam Psychiatric exam: Normal Affect, Normal Mood - Skin Skin Exam: Dry, Warm Assessment and Plan - Assessment and Plan (Free Text) Plan: CVA (cerebral vascular accident) Neurology consult, Dr. Ceron consult---> Help appreciated * Management as per recommendation Lipid panel: TGL: 153, Chol: 174m LDL: 111, HDL: 35 Hemoglobin A1c: 5.[address] (01/26/18): Posterior right MCA territory subacute infarction. Head/Neck CTA (01/26/18): * 1. Plaque noted within the common carotid arteries bilaterally. * 2. The right cervical carotid is attenuated and appears lower in density and smaller caliber than on the contralateral side. * 3. Mucosal thickening within maxillary sinuses bilaterally. 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 * 4. 1.2 cm low density lesion in the right lobe of the thyroid. Recommend further evaluation with thyroid ultrasound. Carotid Doppler (01/27/18): Duplex scan does not suggest hemodynamically significant stenosis of the left and right extracranial carotid arteries Brain MRI (01/27/18): Large subacute right MCA territory infarction involving the parietal lobe with mild gyral edema without mass effect or midline shift. Small focus of subacute infarction in the right frontal subcortical white matter. Mild chronic microangiopathic changes and mild age-related global parenchymal volume loss. Echocardiogram (01/27/18): EF (60-65%), Mild TR & Pulmonic valve regurgitation. Recommendation to continue ASA 81mg PO daily and Plavix 75mg PO daily Hypercoagulable lab workup: Antiphospholipid antibodies, Factor V mutation, Protein S activity * Protein C activity within normal limit Medication and management: * Aspirin 81mg PO daily * Plavix 75mg PO daily * Crestor 10mg PO HS * Speech, occupational and physical therapy: As per physical therapy documentation, patient will benefit from ROM skilled PT in order to improve transfers and Gait patient is clinically evolving in presentation. * As per physical therapy evaluation, patient will need to be discharge to a rehabilitation Thyroid lesion Head/Neck CTA (01/26/18): 1.2 cm low density lesion in the right lobe of the thyroid. Recommend further evaluation with thyroid ultrasound. Thyroid Ultrasound (01/27/18): Right midpole multi-septated cystic nodule measuring up to 1.4 cm. TSH: 1.10 Substance abuse UDS on admission: + Cocaine * avoid beta jelani Counseled on cessation and patient voiced that he will stop using cocaine Bradycardia Asymptomatic * Continue to monitor on telemetry Prophylactic measure GI: Protonix 40mg PO daily DVT: Lovenox 30mg SC daily, SCDs Speech, occupational and physical therapy * As per speech therapy, advanced bite diet and thin liquids Disposition: Per physical therapy, patient's is improving; however, he is unable to go home at this time. Due to his current social situation, will await spring encaser regarding access to rehabilitation. Patient lives on the second floor without elevator access. He lives with an old roommate who is unable to assist him. Discussed with Dr. Samuel Olivares PGY-1 <Blanca Baker - Last Filed: 02/08/18 15:20> Objective - Vital Signs/Intake and Output Vital Signs (last 24 hours): Temp Pulse Resp BP Pulse Ox 97.9 F 46 L 20 105/58 L 96 02/08/18 08:03 02/08/18 08:03 02/08/18 08:03 02/08/18 08:03 02/08/18 08:03 Intake and Output: 02/08/18 02/08/18 06:59 18:59 Intake Total 690 Output Total 1050 600 Balance -360 -600 - Medications Medications: Current Medications Aspirin (Aspirin Chewable) 81 mg PO DAILY [facility] Last Admin: 02/08/18 09:29 Dose: 81 mg Clopidogrel Bisulfate (Plavix) 75 mg PO DAILY [facility] Last Admin: 02/08/18 09:29 Dose: 75 mg Enoxaparin Sodium (Lovenox) 30 mg SC DAILY [facility] Last Admin: 02/08/18 09:29 Dose: 30 mg Pantoprazole Sodium (Protonix Ec Tab) 40 mg PO DAILY [facility] Last Admin: 02/08/18 09:29 Dose: 40 mg Rosuvastatin Calcium (Crestor) 10 mg PO HS [facility] Last Admin: 02/07/18 22:25 Dose: 10 mg - Labs Labs: 02/08/18 06:11 02/08/18 06:11 PT 13.4 SECONDS (9.7-12.2) H 01/26/18 13:59 INR 1.2 01/26/18 13:59 APTT 35 SECONDS (21-34) H 01/26/18 13:59 Attending/Attestation - Attestation I have personally seen and examined this patient.: Yes I have fully participated in the care of the patient.: Yes I have reviewed all pertinent clinical information, including history, physical exam and plan: Yes Notes (Text): Seen and examined. Patient is highly motivated to improve his strength. No complain. Unstaedy to go home. No family support. d/w resident. i agree with the resident's documentation of the assessment and the plan
--- NOTE | 2018-02-08 07:36 | CP.PCM.PN ---
Subjective - Date & Time of Evaluation Date of Evaluation: 02/08/18 Time of Evaluation: 07:36 - Subjective Subjective: Mr. Morocho was seen and examined at the bedside. He is alert, oriented. He is able to follow simple command and answer all questions. He denies any headache, blurred vision, dizziness, lightheadedness, nausea, or vomiting. He is able to move all extremities with left side weaker than the left, but with improvement. He is able to raise his left upper extremity above his head and maintained it for 20 seconds. He further claims of mild pain during any exercises, but pain is tolerable.There was no untoward events overnight. Objective - Vital Signs/Intake and Output Vital Signs (last 24 hours): Temp Pulse Resp BP Pulse Ox 98.2 F 52 L 20 111/60 96 02/08/18 01:00 02/08/18 01:00 02/08/18 01:00 02/08/18 01:00 02/08/18 01:00 Intake and Output: 02/08/18 02/08/18 06:59 18:59 Intake Total 690 Output Total 1050 Balance -360 - Medications Medications: Current Medications Aspirin (Aspirin Chewable) 81 mg PO DAILY [facility] Last Admin: 02/07/18 09:45 Dose: 81 mg Clopidogrel Bisulfate (Plavix) 75 mg PO DAILY [facility] Last Admin: 02/07/18 09:45 Dose: 75 mg Enoxaparin Sodium (Lovenox) 30 mg SC DAILY [facility] Last Admin: 02/07/18 09:45 Dose: 30 mg Pantoprazole Sodium (Protonix Ec Tab) 40 mg PO DAILY [facility] Last Admin: 02/07/18 09:45 Dose: 40 mg Rosuvastatin Calcium (Crestor) 10 mg PO [facility] Last Admin: 02/07/18 22:25 Dose: 10 mg - Labs Labs: 02/08/18 06:11 02/08/18 06:11 PT 13.4 SECONDS (9.7-12.2) H 01/26/18 13:59 INR 1.2 01/26/18 13:59 APTT 35 SECONDS (21-34) H 01/26/18 13:59 - Constitutional Appears: No Acute Distress - Head Exam Head Exam: NORMAL INSPECTION - Neurological Exam Neurological Exam: Alert, Awake Neuro motor strength exam: Left Upper Extremity: 5, Right Upper Extremity: 5, Left Lower Extremity: 5, Right Lower Extremity: 5 Additional comments: Neurological unchanged from previous examination. Assessment and Plan (1) Ischemic stroke Assessment & Plan: Case discussed with Dr. Bennett, continue all current medical, physical, and occupational therapies. Recommend to follow up with an outpatient neurologist upon discharge and perinatal social worker to assist patient with his medications. Status: Acute
[2018-02-08] MEDS: Pantoprazole 40 mg EC Tab PO SCH (09:29)
[2018-02-08] MEDS: Enoxaparin 30 mg Syringe SC SCH (09:29)
--- NOTE | 2018-02-09 01:25 | CP.PCM.PN ---
<Maida Bedolla - Last Filed: 02/09/18 01:16> Subjective - Date & Time of Evaluation Date of Evaluation: 02/09/18 Time of Evaluation: 01:16 - Subjective Subjective: Medicine progress note for Dr. Baker's service Patient was seen and examined at bedside in no acute distress. Patient reports he still has weakness in his left UE, however, it is improving. Patient otherwise has no complaints. Patient denies chest pain, abdominal pain, nausea, vomiting, fevers, headaches, diarrhea/constipation, dysuria. Objective - Vital Signs/Intake and Output Vital Signs (last 24 hours): Temp Pulse Resp BP Pulse Ox 98.2 F 47 L 20 96/56 L 98 02/08/18 23:10 02/08/18 23:10 02/08/18 23:10 02/08/18 23:10 02/08/18 23:10 Intake and Output: 02/08/18 02/09/18 18:59 06:59 Output Total 850 200 Balance -850 -200 - Medications Medications: Current Medications Aspirin (Aspirin Chewable) 81 mg PO DAILY [facility] Last Admin: 02/08/18 09:29 Dose: 81 mg Clopidogrel Bisulfate (Plavix) 75 mg PO DAILY [facility] Last Admin: 02/08/18 09:29 Dose: 75 mg Enoxaparin Sodium (Lovenox) 30 mg SC DAILY [facility] Last Admin: 02/08/18 09:29 Dose: 30 mg Pantoprazole Sodium (Protonix Ec Tab) 40 mg PO DAILY [facility] Last Admin: 02/08/18 09:29 Dose: 40 mg Rosuvastatin Calcium (Crestor) 10 mg PO [facility] Last Admin: 02/08/18 21:43 Dose: 10 mg - Labs Labs: 02/08/18 06:11 02/08/18 06:11 PT 13.4 SECONDS (9.7-12.2) H 01/26/18 13:59 INR 1.2 01/26/18 13:59 APTT 35 SECONDS (21-34) H 01/26/18 13:59 - Additional Findings Additional findings: - Constitutional Appears: Non-toxic, No Acute Distress - Head Exam Head Exam: ATRAUMATIC, NORMOCEPHALIC - Eye Exam Eye Exam: EOMI, Normal appearance - ENT Exam ENT Exam: Mucous Membranes Moist - Respiratory Exam Respiratory Exam: Clear to Auscultation Bilateral, NORMAL BREATHING PATTERN. absent: Accessory Muscle Use, Rales, Rhonchi, Wheezes, Respiratory Distress - Cardiovascular Exam Cardiovascular Exam: REGULAR RHYTHM, +S1, +S2 - GI/Abdominal Exam GI & Abdominal Exam: Soft, Normal Bowel Sounds. absent: Distended, Firm, Guarding, Rigid, Tenderness, Rebound - Extremities Exam Extremities Exam: absent: Calf Tenderness, Pedal Edema Additional comments: Moving all four extremities. - Neurological Exam Neurological Exam: Alert, Awake Neuro motor strength exam: Left Upper Extremity: 4 (improving), Right Upper Extremity: 5, Left Lower Extremity: 4, Right Lower Extremity: 5 - Psychiatric Exam Psychiatric exam: Normal Affect, Normal Mood - Skin Skin Exam: Dry, Warm Assessment and Plan - Assessment and Plan (Free Text) Plan: CVA (cerebral vascular accident) Neurology consult, Dr. Ceron consult---> Help appreciated * Management as per recommendation Lipid panel: TGL: 153, Chol: 174m LDL: 111, HDL: 35 Hemoglobin A1c: 5.[address] (01/26/18): Posterior right MCA territory subacute infarction. Head/Neck CTA (01/26/18): * 1. Plaque noted within the common carotid arteries bilaterally. * 2. The right cervical carotid is attenuated and appears lower in density and smaller caliber than on the contralateral side. * 3. Mucosal thickening within maxillary sinuses bilaterally. 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 * 4. 1.2 cm low density lesion in the right lobe of the thyroid. Recommend further evaluation with thyroid ultrasound. Carotid Doppler (01/27/18): Duplex scan does not suggest hemodynamically significant stenosis of the left and right extracranial carotid arteries Brain MRI (01/27/18): Large subacute right MCA territory infarction involving the parietal lobe with mild gyral edema without mass effect or midline shift. Small focus of subacute infarction in the right frontal subcortical white matter. Mild chronic microangiopathic changes and mild age-related global parenchymal volume loss. Echocardiogram (01/27/18): EF (60-65%), Mild TR & Pulmonic valve regurgitation. Recommendation to continue ASA 81mg PO daily and Plavix 75mg PO daily Hypercoagulable lab workup: Antiphospholipid antibodies, Factor V mutation, Protein S activity * Protein C activity within normal limit Medication and management: * Aspirin 81mg PO daily * Plavix 75mg PO daily * Crestor 10mg PO HS * Speech, occupational and physical therapy: As per physical therapy documentation, patient will benefit from ROM skilled PT in order to improve transfers and Gait patient is clinically evolving in presentation. * As per physical therapy evaluation, patient will need to be discharge to a rehabilitation Thyroid lesion Head/Neck CTA (01/26/18): 1.2 cm low density lesion in the right lobe of the thyroid. Recommend further evaluation with thyroid ultrasound. Thyroid Ultrasound (01/27/18): Right midpole multi-septated cystic nodule measuring up to 1.4 cm. TSH: 1.10 Substance abuse UDS on admission: + Cocaine * avoid beta jelani Counseled on cessation and patient voiced that he will stop using cocaine Bradycardia Asymptomatic * Continue to monitor on telemetry Prophylactic measure GI: Protonix 40mg PO daily DVT: Lovenox 30mg SC daily, SCDs Speech, occupational and physical therapy * As per speech therapy, advanced bite diet and thin liquids Disposition: Per physical therapy, patient is improving; however, he is unable to go home at this time. Due to his current social situation, will await case specialist regarding access to rehabilitation. Patient lives on the second floor without elevator access. He lives with an old roommate who is unable to assist him. <Blanca Baker - Last Filed: 02/09/18 12:37> Objective - Vital Signs/Intake and Output Vital Signs (last 24 hours): Temp Pulse Resp BP Pulse Ox 99.0 F 57 L 20 105/62 98 02/09/18 08:57 02/09/18 08:57 02/09/18 08:57 02/09/18 08:57 02/09/18 08:57 Intake and Output: 02/09/18 02/09/18 06:59 18:59 Output Total 200 Balance -200 - Medications Medications: Current Medications Aspirin (Aspirin Chewable) 81 mg PO DAILY [facility] Last Admin: 02/09/18 09:22 Dose: 81 mg Clopidogrel Bisulfate (Plavix) 75 mg PO DAILY [facility] Last Admin: 02/09/18 09:23 Dose: 75 mg Pantoprazole Sodium (Protonix Ec Tab) 40 mg PO DAILY [facility] Last Admin: 02/09/18 09:23 Dose: 40 mg Rosuvastatin Calcium (Crestor) 10 mg PO [facility] Last Admin: 02/08/18 21:43 Dose: 10 mg - Labs Labs: 02/09/18 07:35 02/09/18 07:35 PT 13.4 SECONDS (9.7-12.2) H 01/26/18 13:59 INR 1.2 01/26/18 13:59 APTT 35 SECONDS (21-34) H 01/26/18 13:59 Attending/Attestation - Attestation I have personally seen and examined this patient.: Yes I have fully participated in the care of the patient.: Yes I have reviewed all pertinent clinical information, including history, physical exam and plan: Yes Notes (Text): seen examined 57years old male with history of cocaine abuse admitted for left side weakness Seen and examined. Patient is motivated to improve his strength and state that he is doing exercise himself No complain. Brain MRI (01/27/18): Large subacute right MCA territory infarction involving the parietal lobe with mild gyral edema without mass effect or midline shift. Small focus of subacute infarction in the right frontal subcortical white matter. Mild chronic microangiopathic changes and mild age-related global parenchymal volume loss.Normal echo. has thyroid cystic mass need out pt f/u continue asprin,plavix,crestor and physical therapy d/w resident. Unsteady to go home. No family support.Shows significant improvement. Possible discharge next week I agree with the resident's documentation of the assessment and the plan
[2018-02-09 07:55] LABS: BASO # 0.1 K/uL (0.0-0.2); BASO % 1.5 % (0.0-2.0); EOS # 0.4 K/uL (0.0-0.7); EOS % 4.9 % (0.0-4.0); HEMOGLOBIN 14.5 g/dL (12.0-18.0); LYMPH % 24.4 % (20.0-40.0); MEAN CELL VOLUME 85.5 fL (80.0-94.0); MEAN CORPUSCULAR HEMOGLOBIN 28.8 pg (27.0-31.0); MEAN CORPUSCULAR HGB CONC 33.7 g/dL (33.0-37.0); MEAN PLATELET VOLUME 7.2 fL (7.2-11.7); MONO # 0.6 K/uL (0.0-0.8); MONO % 7.2 % (0.0-10.0); NEUT # 5.1 K/uL (1.8-7.0); NRBC % 0.1 % (0.0-2.0); RBC 5.04 Mil/uL (4.40-5.90); RED CELL DISTRIBUTION WIDTH 14.3 % (11.5-14.5); WHITE BLOOD COUNT 8.3 K/uL (4.8-10.8)
[2018-02-09 08:08] LABS: ALBUMIN 3.8 g/dL (3.5-5.0); ALT/SGPT 45 U/L (21-72); AST/SGOT 41 U/L (17-59); BLOOD UREA NITROGEN 12 mg/dL (9-20); GFR AFRICAN-AMERICAN > 60; GFR NON-AFRICAN AMERICAN > 60
[2018-02-09] MEDS: Pantoprazole 40 mg EC Tab PO SCH (09:23)
[2018-02-09] MEDS: Enoxaparin 30 mg Syringe SC SCH (09:23)
--- NOTE | 2018-02-10 02:07 | CP.PCM.PN ---
<Maida Bedolla - Last Filed: 02/10/18 02:04> Subjective - Date & Time of Evaluation Date of Evaluation: 02/10/18 Time of Evaluation: 02:04 - Subjective Subjective: Medicine progress note for Dr. Baker's service Patient was seen and examined at bedside in no acute distress. Patient sleeping comfortably in bed. Patient states he still has weakness in his left upper extremity, otherwise has no complaints. Patient denies chest pain, abdominal pain, nausea, vomiting, fevers, headaches, diarrhea/constipation, dysuria. Objective - Vital Signs/Intake and Output Vital Signs (last 24 hours): Temp Pulse Resp BP Pulse Ox 97.8 F 46 L 20 106/60 96 02/09/18 23:20 02/09/18 23:20 02/09/18 23:20 02/09/18 23:20 02/09/18 23:20 Intake and Output: 02/09/18 02/10/18 18:59 06:59 Intake Total 480 Balance 480 - Medications Medications: Current Medications Aspirin (Aspirin Chewable) 81 mg PO DAILY [facility] Last Admin: 02/09/18 09:22 Dose: 81 mg Clopidogrel Bisulfate (Plavix) 75 mg PO DAILY [facility] Last Admin: 02/09/18 09:23 Dose: 75 mg Pantoprazole Sodium (Protonix Ec Tab) 40 mg PO DAILY [facility] Last Admin: 02/09/18 09:23 Dose: 40 mg Rosuvastatin Calcium (Crestor) 10 mg PO HS [facility] Last Admin: 02/09/18 21:32 Dose: 10 mg - Labs Labs: 02/09/18 07:35 02/09/18 07:35 PT 13.4 SECONDS (9.7-12.2) H 01/26/18 13:59 INR 1.2 01/26/18 13:59 APTT 35 SECONDS (21-34) H 01/26/18 13:59 - Additional Findings Additional findings: - Constitutional Appears: Non-toxic, No Acute Distress - Head Exam Head Exam: ATRAUMATIC, NORMOCEPHALIC - Eye Exam Eye Exam: EOMI, Normal appearance - ENT Exam ENT Exam: Mucous Membranes Moist - Respiratory Exam Respiratory Exam: Clear to Auscultation Bilateral, NORMAL BREATHING PATTERN. absent: Accessory Muscle Use, Rales, Rhonchi, Wheezes, Respiratory Distress - Cardiovascular Exam Cardiovascular Exam: REGULAR RHYTHM, +S1, +S2 - GI/Abdominal Exam GI & Abdominal Exam: Soft, Normal Bowel Sounds. absent: Distended, Firm, Guarding, Rigid, Tenderness, Rebound - Extremities Exam Extremities Exam: absent: Calf Tenderness, Pedal Edema Additional comments: Moving all four extremities. - Neurological Exam Neurological Exam: Alert, Awake Neuro motor strength exam: Left Upper Extremity: 4 (improving), Right Upper Extremity: 5, Left Lower Extremity: 4, Right Lower Extremity: 5 - Psychiatric Exam Psychiatric exam: Normal Affect, Normal Mood - Skin Skin Exam: Dry, Warm Assessment and Plan - Assessment and Plan (Free Text) Plan: CVA (cerebral vascular accident) Neurology consult, Dr. Ceron consult---> Help appreciated * Management as per recommendation Lipid panel: TGL: 153, Chol: 174m LDL: 111, HDL: 35 Hemoglobin A1c: 5.[address] (01/26/18): Posterior right MCA territory subacute infarction. Head/Neck CTA (01/26/18): * 1. Plaque noted within the common carotid arteries bilaterally. * 2. The right cervical carotid is attenuated and appears lower in density and smaller caliber than on the contralateral side. * 3. Mucosal thickening within maxillary sinuses bilaterally. 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 * 4. 1.2 cm low density lesion in the right lobe of the thyroid. Recommend further evaluation with thyroid ultrasound. Carotid Doppler (01/27/18): Duplex scan does not suggest hemodynamically significant stenosis of the left and right extracranial carotid arteries Brain MRI (01/27/18): Large subacute right MCA territory infarction involving the parietal lobe with mild gyral edema without mass effect or midline shift. Small focus of subacute infarction in the right frontal subcortical white matter. Mild chronic microangiopathic changes and mild age-related global parenchymal volume loss. Echocardiogram (01/27/18): EF (60-65%), Mild TR & Pulmonic valve regurgitation. Recommendation to continue ASA 81mg PO daily and Plavix 75mg PO daily Hypercoagulable lab workup: Antiphospholipid antibodies, Factor V mutation, Protein S activity * Protein C activity within normal limit Medication and management: * Aspirin 81mg PO daily * Plavix 75mg PO daily * Crestor 10mg PO HS * Speech, occupational and physical therapy: As per physical therapy documentation, patient will benefit from ROM skilled PT in order to improve transfers and Gait patient is clinically evolving in presentation. * As per physical therapy evaluation, patient will need to be discharge to a rehabilitation Thyroid lesion Head/Neck CTA (01/26/18): 1.2 cm low density lesion in the right lobe of the thyroid. Recommend further evaluation with thyroid ultrasound. Thyroid Ultrasound (01/27/18): Right midpole multi-septated cystic nodule measuring up to 1.4 cm. TSH: 1.10 Patient needs outpatient follow up for thryoid cystic mass Substance abuse UDS on admission: + Cocaine * avoid beta jelani Counseled on cessation and patient voiced that he will stop using cocaine Bradycardia Asymptomatic * Continue to monitor on telemetry Prophylactic measure GI: Protonix 40mg PO daily DVT: Lovenox 30mg SC daily, SCDs Speech, occupational and physical therapy * As per speech therapy, advanced bite diet and thin liquids Disposition: Per physical therapy, patient is improving; however, he is unable to go home at this time. Due to his current social situation, will await caser regarding access to rehabilitation. Patient lives on the second floor without elevator access. He lives with an old roommate who is unable to assist him. <Blanca Baker - Last Filed: 02/10/18 15:27> Objective - Vital Signs/Intake and Output Vital Signs (last 24 hours): Temp Pulse Resp BP Pulse Ox 98.8 F 79 20 112/64 98 02/10/18 08:00 02/10/18 08:00 02/10/18 08:00 02/10/18 08:00 02/10/18 08:00 Intake and Output: 02/10/18 02/10/18 06:59 18:59 Intake Total 480 Output Total 400 Balance 80 - Medications Medications: Current Medications Aspirin (Aspirin Chewable) 81 mg PO DAILY [facility] Last Admin: 02/10/18 10:45 Dose: 81 mg Clopidogrel Bisulfate (Plavix) 75 mg PO DAILY [facility] Last Admin: 02/10/18 10:45 Dose: 75 mg Pantoprazole Sodium (Protonix Ec Tab) 40 mg PO DAILY [facility] Last Admin: 02/10/18 10:45 Dose: 40 mg Rosuvastatin Calcium (Crestor) 10 mg PO HS [facility] Last Admin: 02/09/18 21:32 Dose: 10 mg - Labs Labs: 02/09/18 07:35 02/09/18 07:35 PT 13.4 SECONDS (9.7-12.2) H 01/26/18 13:59 INR 1.2 01/26/18 13:59 APTT 35 SECONDS (21-34) H 01/26/18 13:59 Attending/Attestation - Attestation I have personally seen and examined this patient.: Yes I have fully participated in the care of the patient.: Yes I have reviewed all pertinent clinical information, including history, physical exam and plan: Yes Notes (Text): This is a 57years old male with history of cocaine abuse admitted for left side weakness Seen and examined. Patient is motivated to improve his strength and state that he is doing exercise himself No complain. Brain MRI (01/27/18): Large subacute right MCA territory infarction involving the parietal lobe with mild gyral edema without mass effect or midline shift. Small focus of subacute infarction in the right frontal subcortical white matter. Mild chronic microangiopathic changes and mild age-related global parenchymal volume loss.Normal echo. has thyroid cystic mass need out pt f/u Patient was seen and examined.No complain. His right arm weakness is improving. continue asprin,plavix,crestor and physical therapy Unsteady to go home. No family support.Possible discharge coming week Follow PT I agree with the resident's documentation of the assessment and the plan
[2018-02-10] MEDS: Pantoprazole 40 mg EC Tab PO SCH (10:45)
--- NOTE | 2018-02-11 07:20 | CP.PCM.PN ---
Subjective - Date & Time of Evaluation Date of Evaluation: 02/11/18 Time of Evaluation: 07:20 - Subjective Subjective: Mr. Morocho was seen and examined at the bedside. He is alert, oriented. He is able to follow simple command and answer all questions. He denies any headache, blurred vision, dizziness, lightheadedness, nausea, or vomiting. He is able to move all extremities with left side weaker than the left, but with improvement. He is able to raise his left upper extremity above his head longer in comparison from previous examination. He further claims of mild pain during any exercises, but pain is tolerable. He also claims of feeling dizzy with change of position especially from supine to upright position. Advise patient to slowly change his position and increase fluid intake. His HR last night are below 60.There was no untoward events overnight. Objective - Vital Signs/Intake and Output Vital Signs (last 24 hours): Temp Pulse Resp BP Pulse Ox 97.7 F 54 L 20 130/69 98 02/10/18 23:10 02/10/18 23:10 02/10/18 23:10 02/10/18 23:10 02/10/18 23:10 Intake and Output: 02/11/18 02/11/18 06:59 18:59 Intake Total 480 Output Total 500 Balance -20 - Medications Medications: Current Medications Aspirin (Aspirin Chewable) 81 mg PO DAILY [facility] Last Admin: 02/10/18 10:45 Dose: 81 mg Clopidogrel Bisulfate (Plavix) 75 mg PO DAILY [facility] Last Admin: 02/10/18 10:45 Dose: 75 mg Enoxaparin Sodium (Lovenox) 30 mg SC DAILY [facility] Pantoprazole Sodium (Protonix Ec Tab) 40 mg PO DAILY [facility] Last Admin: 02/10/18 10:45 Dose: 40 mg Rosuvastatin Calcium (Crestor) 10 mg PO [facility] Last Admin: 02/10/18 21:11 Dose: 10 mg - Labs Labs: 02/09/18 07:35 02/09/18 07:35 PT 13.4 SECONDS (9.7-12.2) H 01/26/18 13:59 INR 1.2 01/26/18 13:59 APTT 35 SECONDS (21-34) H 01/26/18 13:59 - Constitutional Appears: No Acute Distress - Head Exam Head Exam: NORMAL INSPECTION - Neurological Exam Neurological Exam: Alert, Awake, Oriented x3 Neuro motor strength exam: Left Upper Extremity: 4, Right Upper Extremity: 5, Left Lower Extremity: 4, Right Lower Extremity: 5 Additional comments: neurologicalunchanged from previous examination. Assessment and Plan (1) Ischemic stroke Assessment & Plan: Case discussed with Dr. Bennett, continue all current medical, physical, and occupational therapies. Recommend to follow up with an outpatient neurologist upon discharge and social work faculty member to assist patient with his medications. Recommend antivert 25 mg PO q 12 H. Status: Acute
--- NOTE | 2018-02-11 07:36 | CP.PCM.PN ---
<Samm Olivares - Last Filed: 02/11/18 12:59> Subjective - Date & Time of Evaluation Date of Evaluation: 02/11/18 Time of Evaluation: 07:30 - Subjective Subjective: Medicine progress note for Dr. Springer Patient seen and examined. Patient states that he has diminished sensations on his left leg. No acute events noted. Patient continues to work on bedside exercises. Patient reports that he sometimes gets dizzy when he gets up and when he walks around. Objective - Vital Signs/Intake and Output Vital Signs (last 24 hours): Temp Pulse Resp BP Pulse Ox 97.7 F 54 L 20 130/69 98 02/10/18 23:10 02/10/18 23:10 02/10/18 23:10 02/10/18 23:10 02/10/18 23:10 Intake and Output: 02/11/18 02/11/18 06:59 18:59 Intake Total 480 Output Total 500 Balance -20 - Medications Medications: Current Medications Aspirin (Aspirin Chewable) 81 mg PO DAILY [facility] Last Admin: 02/10/18 10:45 Dose: 81 mg Clopidogrel Bisulfate (Plavix) 75 mg PO DAILY [facility] Last Admin: 02/10/18 10:45 Dose: 75 mg Enoxaparin Sodium (Lovenox) 30 mg SC DAILY [facility] Meclizine HCl (Antivert) 25 mg PO Q12 [facility] Pantoprazole Sodium (Protonix Ec Tab) 40 mg PO DAILY [facility] Last Admin: 02/10/18 10:45 Dose: 40 mg Rosuvastatin Calcium (Crestor) 10 mg PO HS [facility] Last Admin: 02/10/18 21:11 Dose: 10 mg - Labs Labs: 02/09/18 07:35 02/09/18 07:35 PT 13.4 SECONDS (9.7-12.2) H 01/26/18 13:59 INR 1.2 01/26/18 13:59 APTT 35 SECONDS (21-34) H 01/26/18 13:59 - Additional Findings Additional findings: - Constitutional Appears: Non-toxic, No Acute Distress - Head Exam Head Exam: ATRAUMATIC, NORMOCEPHALIC - Eye Exam Eye Exam: EOMI, Normal appearance - ENT Exam ENT Exam: Mucous Membranes Moist - Respiratory Exam Respiratory Exam: Clear to Auscultation Bilateral, NORMAL BREATHING PATTERN. absent: Accessory Muscle Use, Rales, Rhonchi, Wheezes, Respiratory Distress - Cardiovascular Exam Cardiovascular Exam: REGULAR RHYTHM, +S1, +S2 - GI/Abdominal Exam GI & Abdominal Exam: Soft, Normal Bowel Sounds. absent: Distended, Firm, Guarding, Rigid, Tenderness, Rebound - Extremities Exam Extremities Exam: absent: Calf Tenderness, Pedal Edema Additional comments: Moving all four extremities. - Neurological Exam Neurological Exam: Alert, Awake Neuro motor strength exam: Left Upper Extremity: 4 (improving), Right Upper Extremity: 5, Left Lower Extremity: 4, Right Lower Extremity: 5 - Psychiatric Exam Psychiatric exam: Normal Affect, Normal Mood - Skin Skin Exam: Dry, Warm Assessment and Plan - Assessment and Plan (Free Text) Plan: CVA (cerebral vascular accident) Neurology consult, Dr. Ceron consult---> Help appreciated * Management as per recommendation Lipid panel: TGL: 153, Chol: 174m LDL: 111, HDL: 35 Hemoglobin A1c: 5.[address] (01/26/18): Posterior right MCA territory subacute infarction. Head/Neck CTA (01/26/18): * 1. Plaque noted within the common carotid arteries bilaterally. * 2. The right cervical carotid is attenuated and appears lower in density and smaller caliber than on the contralateral side. * 3. Mucosal thickening within maxillary sinuses bilaterally. 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 * 4. 1.2 cm low density lesion in the right lobe of the thyroid. Recommend further evaluation with thyroid ultrasound. Carotid Doppler (01/27/18): Duplex scan does not suggest hemodynamically significant stenosis of the left and right extracranial carotid arteries Brain MRI (01/27/18): Large subacute right MCA territory infarction involving the parietal lobe with mild gyral edema without mass effect or midline shift. Small focus of subacute infarction in the right frontal subcortical white matter. Mild chronic microangiopathic changes and mild age-related global parenchymal volume loss. Echocardiogram (01/27/18): EF (60-65%), Mild TR & Pulmonic valve regurgitation. Recommendation to continue ASA 81mg PO daily and Plavix 75mg PO daily Hypercoagulable lab workup: Antiphospholipid antibodies, Factor V mutation, Protein S activity * Protein C activity within normal limit Medication and management: * Aspirin 81mg PO daily * Plavix 75mg PO daily * Crestor 10mg PO HS * Speech, occupational and physical therapy: As per physical therapy documentation, patient will benefit from ROM skilled PT in order to improve transfers and Gait patient is clinically evolving in presentation. * As per physical therapy evaluation, patient will need to be discharge to a rehabilitation Thyroid lesion Head/Neck CTA (01/26/18): 1.2 cm low density lesion in the right lobe of the thyroid. Recommend further evaluation with thyroid ultrasound. Thyroid Ultrasound (01/27/18): Right midpole multi-septated cystic nodule measuring up to 1.4 cm. TSH: 1.10 Substance abuse UDS on admission: + Cocaine * avoid beta jelani Counseled on cessation and patient voiced that he will stop using cocaine Bradycardia Asymptomatic * Continue to monitor on telemetry Ordered orthostatic vitals Prophylactic measure GI: Protonix 40mg PO daily DVT: Lovenox 30mg SC daily, SCDs Speech, occupational and physical therapy * As per speech therapy, advanced bite diet and thin liquids Disposition: Per physical therapy, patient's is improving; however, he is unable to go home at this time. Due to his current social situation, will await caser shoe parts regarding access to rehabilitation. Patient lives on the second floor without elevator access. He lives with an old roommate who is unable to assist him. Upon assessment of orthostatic vital signs, we will decide whether to start the patient on Florinef or Midodrine for his dizziness. Repeat Head CT to assess his subacute infarct. Discussed with Dr. Racheal Olivares PGY-1 <Pardeep Springer - Last Filed: 02/11/18 13:28> Objective - Vital Signs/Intake and Output Vital Signs (last 24 hours): Temp Pulse Resp BP Pulse Ox 97.9 F 55 L 20 102/62 98 02/11/18 07:00 02/11/18 07:00 02/11/18 07:00 02/11/18 07:00 02/11/18 07:00 Intake and Output: 02/11/18 02/11/18 06:59 18:59 Intake Total 480 Output Total 500 Balance -20 - Medications Medications: Current Medications Aspirin (Aspirin Chewable) 81 mg PO DAILY [facility] Last Admin: 02/11/18 10:14 Dose: 81 mg Clopidogrel Bisulfate (Plavix) 75 mg PO DAILY [facility] Last Admin: 02/11/18 10:14 Dose: 75 mg Enoxaparin Sodium (Lovenox) 30 mg SC DAILY [facility] Last Admin: 02/11/18 10:14 Dose: 30 mg Meclizine HCl (Antivert) 25 mg PO Q12 [facility] Pantoprazole Sodium (Protonix Ec Tab) 40 mg PO DAILY [facility] Last Admin: 02/11/18 10:14 Dose: 40 mg Rosuvastatin Calcium (Crestor) 10 mg PO HS [facility] Last Admin: 02/10/18 21:11 Dose: 10 mg - Labs Labs: 02/11/18 07:37 02/11/18 07:37 PT 13.4 SECONDS (9.7-12.2) H 01/26/18 13:59 INR 1.2 01/26/18 13:59 APTT 35 SECONDS (21-34) H 01/26/18 13:59 Attending/Attestation - Attestation I have personally seen and examined this patient.: Yes I have fully participated in the care of the patient.: Yes I have reviewed all pertinent clinical information, including history, physical exam and plan: Yes Notes (Text): Medical attending: Patient was seen and examined by me. Agree with the above note by the resident Patient is known to me from previous week. He has been participating with PT. As mentioned previously he was using cocaine and there has been a right MCA infarction resulting in left body weakness He was working with PT today who explained that while he is able to move about - he still needs assistance in the way of a walker / cane Today also check orthostatic BPs as well. thank you Pardeep Springer
[2018-02-11 07:54] LABS: BASO # 0.1 K/uL (0.0-0.2); BASO % 1.5 % (0.0-2.0); EOS # 0.4 K/uL (0.0-0.7); HEMOGLOBIN 14.1 g/dL (12.0-18.0); MEAN CELL VOLUME 85.1 fL (80.0-94.0); MEAN CORPUSCULAR HEMOGLOBIN 28.7 pg (27.0-31.0); MEAN CORPUSCULAR HGB CONC 33.7 g/dL (33.0-37.0); MEAN PLATELET VOLUME 7.2 fL (7.2-11.7); MONO # 0.6 K/uL (0.0-0.8); MONO % 6.5 % (0.0-10.0); NEUT # 5.8 K/uL (1.8-7.0); RBC 4.9 Mil/uL (4.40-5.90); RED CELL DISTRIBUTION WIDTH 14.2 % (11.5-14.5); WHITE BLOOD COUNT 8.9 K/uL (4.8-10.8)
[2018-02-11 08:22] LABS: ALBUMIN 3.6 g/dL (3.5-5.0); ALT/SGPT 48 U/L (21-72); AST/SGOT 37 U/L (17-59); BLOOD UREA NITROGEN 14 mg/dL (9-20); CALCIUM 8.8 mg/dl (8.6-10.4); GFR AFRICAN-AMERICAN > 60; GFR NON-AFRICAN AMERICAN > 60
[2018-02-11] MEDS: Pantoprazole 40 mg EC Tab PO SCH (10:14)
[2018-02-11] MEDS: Enoxaparin 30 mg Syringe SC SCH (10:14)
--- NOTE | 2018-02-11 14:59 | CT ---
PROCEDURE: CT HEAD WITHOUT CONTRAST. HISTORY: reassess prior subacute infarct COMPARISON: MRI brain without contrast from 01/28/2018 TECHNIQUE: Axial computed tomography images were obtained through the head/brain without intravenous contrast. Radiation dose: Total exam DLP = 859.97 mGy-cm. This CT exam was performed using one or more of the following dose reduction techniques: Automated exposure control, adjustment of the mA and/or kV according to patient size, and/or use of iterative reconstruction technique. FINDINGS: HEMORRHAGE: No intracranial hemorrhage. BRAIN: There is a large chronic right MCA territory infarction involving the parietal lobe. There is no mass, mass effect or abnormal extra-axial fluid collection. VENTRICLES: The ventricles are normal in size, shape and configuration. CALVARIUM: The skull base and calvarium are normal. PARANASAL SINUSES: Predominantly clear. MASTOID AIR CELLS: Predominantly clear. OTHER FINDINGS: None. IMPRESSION: No acute intracranial abnormality. Large chronic right MCA territory infarction involving the parietal lobe.
--- NOTE | 2018-02-12 06:55 | CP.PCM.PN ---
<Samm Olivares - Last Filed: 02/12/18 11:35> Subjective - Date & Time of Evaluation Date of Evaluation: 02/12/18 Time of Evaluation: 07:00 - Subjective Subjective: Medicine progress note for Dr. Springer Patient seen and examined. No acute events noted. Patient continues to work on bedside exercises. He no longer feels dizzy, and sensations in his left leg have improved. Objective - Vital Signs/Intake and Output Vital Signs (last 24 hours): Temp Pulse Resp BP Pulse Ox 97.3 F L 53 L 20 123/68 98 02/11/18 23:10 02/11/18 23:10 02/11/18 23:10 02/11/18 23:10 02/11/18 23:10 Intake and Output: 02/11/18 02/12/18 18:59 06:59 Output Total 300 Balance -300 - Medications Medications: Current Medications Aspirin (Aspirin Chewable) 81 mg PO DAILY [facility] Last Admin: 02/11/18 10:14 Dose: 81 mg Clopidogrel Bisulfate (Plavix) 75 mg PO DAILY [facility] Last Admin: 02/11/18 10:14 Dose: 75 mg Enoxaparin Sodium (Lovenox) 30 mg SC DAILY [facility] Last Admin: 02/11/18 10:14 Dose: 30 mg Meclizine HCl (Antivert) 25 mg PO Q12 [facility] Last Admin: 02/11/18 21:45 Dose: 25 mg Pantoprazole Sodium (Protonix Ec Tab) 40 mg PO DAILY [facility] Last Admin: 02/11/18 10:14 Dose: 40 mg Rosuvastatin Calcium (Crestor) 10 mg PO HS [facility] Last Admin: 02/11/18 21:46 Dose: 10 mg - Labs Labs: 02/11/18 07:37 02/11/18 07:37 PT 13.4 SECONDS (9.7-12.2) H 01/26/18 13:59 INR 1.2 01/26/18 13:59 APTT 35 SECONDS (21-34) H 01/26/18 13:59 - Additional Findings Additional findings: - Constitutional Appears: Non-toxic, No Acute Distress - Head Exam Head Exam: ATRAUMATIC, NORMOCEPHALIC - Eye Exam Eye Exam: EOMI, Normal appearance - ENT Exam ENT Exam: Mucous Membranes Moist - Respiratory Exam Respiratory Exam: Clear to Auscultation Bilateral, NORMAL BREATHING PATTERN. absent: Accessory Muscle Use, Rales, Rhonchi, Wheezes, Respiratory Distress - Cardiovascular Exam Cardiovascular Exam: REGULAR RHYTHM, +S1, +S2 - GI/Abdominal Exam GI & Abdominal Exam: Soft, Normal Bowel Sounds. absent: Distended, Firm, Guarding, Rigid, Tenderness, Rebound - Extremities Exam Extremities Exam: absent: Calf Tenderness, Pedal Edema Additional comments: Moving all four extremities. - Neurological Exam Neurological Exam: Alert, Awake Neuro motor strength exam: Left Upper Extremity: 4 (improving), Right Upper Extremity: 5, Left Lower Extremity: 4, Right Lower Extremity: 5 - Psychiatric Exam Psychiatric exam: Normal Affect, Normal Mood - Skin Skin Exam: Dry, Warm Assessment and Plan - Assessment and Plan (Free Text) Plan: CVA (cerebral vascular accident) Neurology consult, Dr. Ceron consult---> Help appreciated * Management as per recommendation Lipid panel: TGL: 153, Chol: 174m LDL: 111, HDL: 35 Hemoglobin A1c: 5.[address] 02/12/18: No acute abnormalities. Large chronic right MCA territory infarct with involvement of parietal lobe. Head CT (01/26/18): Posterior right MCA territory subacute infarction. Head/Neck CTA (01/26/18): * 1. Plaque noted within the common carotid arteries bilaterally. * 2. The right cervical carotid is attenuated and appears lower in density and smaller caliber than on the contralateral side. * 3. Mucosal thickening within maxillary sinuses bilaterally. 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 * 4. 1.2 cm low density lesion in the right lobe of the thyroid. Recommend further evaluation with thyroid ultrasound. Carotid Doppler (01/27/18): Duplex scan does not suggest hemodynamically significant stenosis of the left and right extracranial carotid arteries Brain MRI (01/27/18): Large subacute right MCA territory infarction involving the parietal lobe with mild gyral edema without mass effect or midline shift. Small focus of subacute infarction in the right frontal subcortical white matter. Mild chronic microangiopathic changes and mild age-related global parenchymal volume loss. Echocardiogram (01/27/18): EF (60-65%), Mild TR & Pulmonic valve regurgitation. Recommendation to continue ASA 81mg PO daily and Plavix 75mg PO daily Hypercoagulable lab workup: Antiphospholipid antibodies, Factor V mutation, Protein S activity * Protein C activity within normal limit Medication and management: * Aspirin 81mg PO daily * Plavix 75mg PO daily * Crestor 10mg PO HS * Speech, occupational and physical therapy: As per physical therapy documentation, patient will benefit from ROM skilled PT in order to improve transfers and Gait patient is clinically evolving in presentation. * As per physical therapy evaluation, patient will need to be discharge to a rehabilitation Thyroid lesion Head/Neck CTA (01/26/18): 1.2 cm low density lesion in the right lobe of the thyroid. Recommend further evaluation with thyroid ultrasound. Thyroid Ultrasound (01/27/18): Right midpole multi-septated cystic nodule measuring up to 1.4 cm. TSH: 1.10 Substance abuse UDS on admission: + Cocaine * avoid beta jelani Counseled on cessation and patient voiced that he will stop using cocaine Bradycardia Asymptomatic * Continue to monitor on telemetry Orthostatic vitals were negative Prophylactic measure GI: Protonix 40mg PO daily DVT: Lovenox 30mg SC daily, SCDs Speech, occupational and physical therapy * As per speech therapy, advanced bite diet and thin liquids Disposition: Per physical therapy, patient's is improving; however, he is unable to go home at this time. Due to his current social situation, will await vocational case manager regarding access to rehabilitation. Patient lives on the second floor without elevator access. He lives with an old roommate who is unable to assist him. Discussed with Dr. Racheal Olivares PGY-1 <Pardeep Springer - Last Filed: 02/12/18 13:23> Objective - Vital Signs/Intake and Output Vital Signs (last 24 hours): Temp Pulse Resp BP Pulse Ox 97.9 F 54 L 20 109/69 98 02/12/18 07:30 02/12/18 07:30 02/12/18 07:30 02/12/18 07:30 02/12/18 07:30 Intake and Output: 02/12/18 02/12/18 06:59 18:59 Intake Total 120 Output Total 300 Balance -180 - Medications Medications: Current Medications Aspirin (Aspirin Chewable) 81 mg PO DAILY [facility] Last Admin: 02/12/18 09:26 Dose: 81 mg Clopidogrel Bisulfate (Plavix) 75 mg PO DAILY [facility] Last Admin: 02/12/18 09:26 Dose: 75 mg Enoxaparin Sodium (Lovenox) 30 mg SC DAILY [facility] Last Admin: 02/12/18 09:26 Dose: 30 mg Meclizine HCl (Antivert) 25 mg PO Q12 [facility] Last Admin: 02/12/18 09:26 Dose: 25 mg Pantoprazole Sodium (Protonix Ec Tab) 40 mg PO DAILY [facility] Last Admin: 02/12/18 09:26 Dose: 40 mg Rosuvastatin Calcium (Crestor) 10 mg PO HS [facility] Last Admin: 02/11/18 21:46 Dose: 10 mg - Labs Labs: 02/12/18 07:31 02/12/18 07:31 PT 13.4 SECONDS (9.7-12.2) H 01/26/18 13:59 INR 1.2 01/26/18 13:59 APTT 35 SECONDS (21-34) H 01/26/18 13:59 Attending/Attestation - Attestation I have personally seen and examined this patient.: Yes I have fully participated in the care of the patient.: Yes I have reviewed all pertinent clinical information, including history, physical exam and plan: Yes Notes (Text): Medical attending: Patient was seen and examined by me. Agree with the above note by the resident Today we watched him walk in the hallway - it was slow but he could do it as the PT staff were beside him. What he had signifigant problems were with walking up steps - he had a lot of problems doing this. We watched him and he required a lot of assistance. thank you Pardeep Springer
[2018-02-12 07:40] LABS: BASO % 0.6 % (0.0-2.0); EOS # 0.4 K/uL (0.0-0.7); EOS % 4.5 % (0.0-4.0); HEMOGLOBIN 14.5 g/dL (12.0-18.0); LYMPH # 2.1 K/uL (1.0-4.3); LYMPH % 24.6 % (20.0-40.0); MEAN CELL VOLUME 85.6 fL (80.0-94.0); MEAN CORPUSCULAR HEMOGLOBIN 28.4 pg (27.0-31.0); MEAN CORPUSCULAR HGB CONC 33.2 g/dL (33.0-37.0); MEAN PLATELET VOLUME 7.5 fL (7.2-11.7); MONO # 0.5 K/uL (0.0-0.8); MONO % 5.9 % (0.0-10.0); NEUT # 5.5 K/uL (1.8-7.0); NEUT % 64.4 % (50.0-75.0); NRBC % 0.1 % (0.0-2.0); RBC 5.09 Mil/uL (4.40-5.90); RED CELL DISTRIBUTION WIDTH 14.3 % (11.5-14.5); WHITE BLOOD COUNT 8.5 K/uL (4.8-10.8)
[2018-02-12 07:59] LABS: ALB/GLOB RATIO 1.1 (1.0-2.1); ALBUMIN 3.6 g/dL (3.5-5.0); ALT/SGPT 40 U/L (21-72); AST/SGOT 44 U/L (17-59); BLOOD UREA NITROGEN 17 mg/dL (9-20); CALCIUM 8.7 mg/dl (8.6-10.4); GFR AFRICAN-AMERICAN > 60; GFR NON-AFRICAN AMERICAN > 60
[2018-02-12] MEDS: Pantoprazole 40 mg EC Tab PO SCH (09:26)
[2018-02-12] MEDS: Enoxaparin 30 mg Syringe SC SCH (09:26)
--- NOTE | 2018-02-13 07:25 | CP.PCM.PN ---
<Samm Olivares - Last Filed: 02/13/18 10:04> Subjective - Date & Time of Evaluation Date of Evaluation: 02/13/18 Time of Evaluation: 07:20 - Subjective Subjective: Medicine progress note for Dr. Springer Patient seen and examined. Patient has no complaints at this time. No acute events noted. Patient continues to work with therapy in order to get stronger. Objective - Vital Signs/Intake and Output Vital Signs (last 24 hours): Temp Pulse Resp BP Pulse Ox 97.9 F 51 L 20 102/58 L 98 02/12/18 23:05 02/12/18 23:05 02/12/18 23:05 02/12/18 23:05 02/12/18 23:05 Intake and Output: 02/13/18 02/13/18 06:59 18:59 Intake Total 240 Output Total 500 Balance -260 - Medications Medications: Current Medications Aspirin (Aspirin Chewable) 81 mg PO DAILY [facility] Last Admin: 02/12/18 09:26 Dose: 81 mg Clopidogrel Bisulfate (Plavix) 75 mg PO DAILY [facility] Last Admin: 02/12/18 09:26 Dose: 75 mg Enoxaparin Sodium (Lovenox) 30 mg SC DAILY [facility] Last Admin: 02/12/18 09:26 Dose: 30 mg Meclizine HCl (Antivert) 25 mg PO Q12 [facility] Last Admin: 02/12/18 21:45 Dose: 25 mg Pantoprazole Sodium (Protonix Ec Tab) 40 mg PO DAILY [facility] Last Admin: 02/12/18 09:26 Dose: 40 mg Rosuvastatin Calcium (Crestor) 10 mg PO HS [facility] Last Admin: 02/12/18 21:45 Dose: 10 mg - Labs Labs: 02/12/18 07:31 02/12/18 07:31 PT 13.4 SECONDS (9.7-12.2) H 01/26/18 13:59 INR 1.2 01/26/18 13:59 APTT 35 SECONDS (21-34) H 01/26/18 13:59 - Additional Findings Additional findings: - Constitutional Appears: Non-toxic, No Acute Distress - Head Exam Head Exam: ATRAUMATIC, NORMOCEPHALIC - Eye Exam Eye Exam: EOMI, Normal appearance - ENT Exam ENT Exam: Mucous Membranes Moist - Respiratory Exam Respiratory Exam: Clear to Auscultation Bilateral, NORMAL BREATHING PATTERN. absent: Accessory Muscle Use, Rales, Rhonchi, Wheezes, Respiratory Distress - Cardiovascular Exam Cardiovascular Exam: REGULAR RHYTHM, +S1, +S2 - GI/Abdominal Exam GI & Abdominal Exam: Soft, Normal Bowel Sounds. absent: Distended, Firm, Guarding, Rigid, Tenderness, Rebound - Extremities Exam Extremities Exam: absent: Calf Tenderness, Pedal Edema Additional comments: Moving all four extremities. - Neurological Exam Neurological Exam: Alert, Awake Neuro motor strength exam: Left Upper Extremity: 4 (improving), Right Upper Extremity: 5, Left Lower Extremity: 4, Right Lower Extremity: 5 - Psychiatric Exam Psychiatric exam: Normal Affect, Normal Mood - Skin Skin Exam: Dry, Warm Assessment and Plan - Assessment and Plan (Free Text) Plan: CVA (cerebral vascular accident) Neurology consult, Dr. Ceron consult---> Help appreciated * Management as per recommendation Lipid panel: TGL: 153, Chol: 174m LDL: 111, HDL: 35 Hemoglobin A1c: 5.[address] 02/12/18: No acute abnormalities. Large chronic right MCA territory infarct with involvement of parietal lobe. Head CT (01/26/18): Posterior right MCA territory subacute infarction. Head/Neck CTA (01/26/18): * 1. Plaque noted within the common carotid arteries bilaterally. * 2. The right cervical carotid is attenuated and appears lower in density and smaller caliber than on the contralateral side. * 3. Mucosal thickening within maxillary sinuses bilaterally. 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 * 4. 1.2 cm low density lesion in the right lobe of the thyroid. Recommend further evaluation with thyroid ultrasound. Carotid Doppler (01/27/18): Duplex scan does not suggest hemodynamically significant stenosis of the left and right extracranial carotid arteries Brain MRI (01/27/18): Large subacute right MCA territory infarction involving the parietal lobe with mild gyral edema without mass effect or midline shift. Small focus of subacute infarction in the right frontal subcortical white matter. Mild chronic microangiopathic changes and mild age-related global parenchymal volume loss. Echocardiogram (01/27/18): EF (60-65%), Mild TR & Pulmonic valve regurgitation. Recommendation to continue ASA 81mg PO daily and Plavix 75mg PO daily Hypercoagulable lab workup: Antiphospholipid antibodies, Factor V mutation, Protein S activity * Protein C activity within normal limit Medication and management: * Aspirin 81mg PO daily * Plavix 75mg PO daily * Crestor 10mg PO HS * Speech, occupational and physical therapy: As per physical therapy documentation, patient will benefit from ROM skilled PT in order to improve transfers and Gait patient is clinically evolving in presentation. * As per physical therapy evaluation, patient will need to be discharge to a rehabilitation Thyroid lesion Head/Neck CTA (01/26/18): 1.2 cm low density lesion in the right lobe of the thyroid. Recommend further evaluation with thyroid ultrasound. Thyroid Ultrasound (01/27/18): Right midpole multi-septated cystic nodule measuring up to 1.4 cm. TSH: 1.10 Substance abuse UDS on admission: + Cocaine * avoid beta jelani Counseled on cessation and patient voiced that he will stop using cocaine Bradycardia Asymptomatic * Continue to monitor on telemetry Orthostatic vitals were negative Prophylactic measure GI: Protonix 40mg PO daily DVT: Lovenox 30mg SC daily, SCDs Speech, occupational and physical therapy * As per speech therapy, advanced bite diet and thin liquids Disposition: Per physical therapy, patient's is improving; however, he is unable to go home at this time. Due to his current social situation, will await family preservation caseworker regarding access to rehabilitation. Patient lives on the second floor without elevator access. He lives with an old roommate who is unable to assist him. Discussed with Dr. Racheal Olivares PGY-1 <Pardeep Springer - Last Filed: 02/13/18 11:56> Objective - Vital Signs/Intake and Output Vital Signs (last 24 hours): Temp Pulse Resp BP Pulse Ox 98.4 F 58 L 20 95/65 L 98 02/13/18 07:00 02/13/18 07:00 02/13/18 07:00 02/13/18 07:00 02/13/18 07:00 Intake and Output: 02/13/18 02/13/18 06:59 18:59 Intake Total 240 Output Total 500 Balance -260 - Medications Medications: Current Medications Aspirin (Aspirin Chewable) 81 mg PO DAILY [facility] Last Admin: 02/13/18 10:04 Dose: 81 mg Clopidogrel Bisulfate (Plavix) 75 mg PO DAILY [facility] Last Admin: 02/13/18 10:04 Dose: 75 mg Enoxaparin Sodium (Lovenox) 30 mg SC DAILY [facility] Last Admin: 02/13/18 10:04 Dose: 30 mg Meclizine HCl (Antivert) 25 mg PO Q12 [facility] Last Admin: 02/13/18 10:04 Dose: 25 mg Pantoprazole Sodium (Protonix Ec Tab) 40 mg PO DAILY [facility] Last Admin: 02/13/18 10:04 Dose: 40 mg Rosuvastatin Calcium (Crestor) 10 mg PO HS [facility] Last Admin: 02/12/18 21:45 Dose: 10 mg - Labs Labs: 02/13/18 07:14 02/13/18 07:14 PT 13.4 SECONDS (9.7-12.2) H 01/26/18 13:59 INR 1.2 01/26/18 13:59 APTT 35 SECONDS (21-34) H 01/26/18 13:59 Attending/Attestation - Attestation I have personally seen and examined this patient.: Yes I have fully participated in the care of the patient.: Yes I have reviewed all pertinent clinical information, including history, physical exam and plan: Yes Notes (Text): 02/13/18 11:56 Medical attending: Patient was seen and examined by me, agrees the above note by medical technologist generalist. As mentioned previously the patient situation as were mostly unchanged from before. He continues to get physical therapy. We encouraged him to continue to exercise his left arm as well as left leg. As mentioned previously, he was using large amounts of cocaine but he then developed a right posterior MCA area infarcts. So at this time he remains on aspirin, Plavix, statin and continues to receive physical therapy here as his social situation does not allow for subacute rehabilitation Thank you very much, Pardeep Springer
[2018-02-13 07:42] LABS: BASO # 0.1 K/uL (0.0-0.2); BASO % 1.3 % (0.0-2.0); EOS # 0.4 K/uL (0.0-0.7); EOS % 4.4 % (0.0-4.0); HEMOGLOBIN 13.9 g/dL (12.0-18.0); LYMPH # 2.2 K/uL (1.0-4.3); LYMPH % 25.6 % (20.0-40.0); MEAN CELL VOLUME 84.8 fL (80.0-94.0); MEAN CORPUSCULAR HEMOGLOBIN 28.8 pg (27.0-31.0); MEAN CORPUSCULAR HGB CONC 33.9 g/dL (33.0-37.0); MEAN PLATELET VOLUME 7.4 fL (7.2-11.7); MONO # 0.7 K/uL (0.0-0.8); NEUT # 5.1 K/uL (1.8-7.0); NEUT % 60.7 % (50.0-75.0); RBC 4.81 Mil/uL (4.40-5.90); RED CELL DISTRIBUTION WIDTH 14.5 % (11.5-14.5); WHITE BLOOD COUNT 8.5 K/uL (4.8-10.8)
[2018-02-13 07:58] LABS: ALBUMIN 3.6 g/dL (3.5-5.0); ALT/SGPT 37 U/L (21-72); AST/SGOT 25 U/L (17-59); BLOOD UREA NITROGEN 16 mg/dL (9-20); CALCIUM 8.9 mg/dl (8.6-10.4); GFR AFRICAN-AMERICAN > 60; GFR NON-AFRICAN AMERICAN > 60
[2018-02-13] MEDS: Pantoprazole 40 mg EC Tab PO SCH (10:04)
[2018-02-13] MEDS: Enoxaparin 30 mg Syringe SC SCH (10:04)
--- NOTE | 2018-02-14 07:25 | CP.PCM.PN ---
<Samm Olivares - Last Filed: 02/14/18 13:20> Subjective - Date & Time of Evaluation Date of Evaluation: 02/14/18 Time of Evaluation: 07:30 - Subjective Subjective: Medicine progress note for Dr. Springer Patient seen and examined. Patient with no complaints at this time. No acute events noted. Patient continues to work on building strength and improving gait. Objective - Vital Signs/Intake and Output Vital Signs (last 24 hours): Temp Pulse Resp BP Pulse Ox 97.7 F 60 20 108/69 98 02/13/18 23:10 02/13/18 23:10 02/13/18 23:10 02/13/18 23:10 02/13/18 23:10 Intake and Output: 02/14/18 02/14/18 06:59 18:59 Intake Total 360 Output Total 350 Balance 10 - Medications Medications: Current Medications Aspirin (Aspirin Chewable) 81 mg PO DAILY [facility] Last Admin: 02/13/18 10:04 Dose: 81 mg Clopidogrel Bisulfate (Plavix) 75 mg PO DAILY [facility] Last Admin: 02/13/18 10:04 Dose: 75 mg Enoxaparin Sodium (Lovenox) 30 mg SC DAILY [facility] Last Admin: 02/13/18 10:04 Dose: 30 mg Meclizine HCl (Antivert) 25 mg PO Q12 [facility] Last Admin: 02/13/18 21:52 Dose: 25 mg Pantoprazole Sodium (Protonix Ec Tab) 40 mg PO DAILY [facility] Last Admin: 02/13/18 10:04 Dose: 40 mg Rosuvastatin Calcium (Crestor) 10 mg PO HS [facility] Last Admin: 02/13/18 21:52 Dose: 10 mg - Labs Labs: 02/13/18 07:14 02/13/18 07:14 PT 13.4 SECONDS (9.7-12.2) H 01/26/18 13:59 INR 1.2 01/26/18 13:59 APTT 35 SECONDS (21-34) H 01/26/18 13:59 - Additional Findings Additional findings: - Constitutional Appears: Non-toxic, No Acute Distress - Head Exam Head Exam: ATRAUMATIC, NORMOCEPHALIC - Eye Exam Eye Exam: EOMI, Normal appearance - ENT Exam ENT Exam: Mucous Membranes Moist - Respiratory Exam Respiratory Exam: Clear to Auscultation Bilateral, NORMAL BREATHING PATTERN. absent: Accessory Muscle Use, Rales, Rhonchi, Wheezes, Respiratory Distress - Cardiovascular Exam Cardiovascular Exam: REGULAR RHYTHM, +S1, +S2 - GI/Abdominal Exam GI & Abdominal Exam: Soft, Normal Bowel Sounds. absent: Distended, Firm, Guarding, Rigid, Tenderness, Rebound - Extremities Exam Extremities Exam: absent: Calf Tenderness, Pedal Edema Additional comments: Moving all four extremities. - Neurological Exam Neurological Exam: Alert, Awake Neuro motor strength exam: Left Upper Extremity: 4 (improving), Right Upper Extremity: 5, Left Lower Extremity: 4, Right Lower Extremity: 5 - Psychiatric Exam Psychiatric exam: Normal Affect, Normal Mood - Skin Skin Exam: Dry, Warm Assessment and Plan - Assessment and Plan (Free Text) Plan: CVA (cerebral vascular accident) Neurology consult, Dr. Ceron consult---> Help appreciated * Management as per recommendation Lipid panel: TGL: 153, Chol: 174m LDL: 111, HDL: 35 Hemoglobin A1c: 5.[address] 02/12/18: No acute abnormalities. Large chronic right MCA territory infarct with involvement of parietal lobe. Head CT (01/26/18): Posterior right MCA territory subacute infarction. Head/Neck CTA (01/26/18): * 1. Plaque noted within the common carotid arteries bilaterally. * 2. The right cervical carotid is attenuated and appears lower in density and smaller caliber than on the contralateral side. * 3. Mucosal thickening within maxillary sinuses bilaterally. 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 * 4. 1.2 cm low density lesion in the right lobe of the thyroid. Recommend further evaluation with thyroid ultrasound. Carotid Doppler (01/27/18): Duplex scan does not suggest hemodynamically significant stenosis of the left and right extracranial carotid arteries Brain MRI (01/27/18): Large subacute right MCA territory infarction involving the parietal lobe with mild gyral edema without mass effect or midline shift. Small focus of subacute infarction in the right frontal subcortical white matter. Mild chronic microangiopathic changes and mild age-related global parenchymal volume loss. Echocardiogram (01/27/18): EF (60-65%), Mild TR & Pulmonic valve regurgitation. Recommendation to continue ASA 81mg PO daily and Plavix 75mg PO daily Hypercoagulable lab workup: Antiphospholipid antibodies, Factor V mutation, Protein S activity * Protein C activity within normal limit Medication and management: * Aspirin 81mg PO daily * Plavix 75mg PO daily * Crestor 10mg PO HS * Speech, occupational and physical therapy: As per physical therapy documentation, patient will benefit from ROM skilled PT in order to improve transfers and Gait patient is clinically evolving in presentation. * As per physical therapy evaluation, patient will need to be discharge to a rehabilitation Thyroid lesion Head/Neck CTA (01/26/18): 1.2 cm low density lesion in the right lobe of the thyroid. Recommend further evaluation with thyroid ultrasound. Thyroid Ultrasound (01/27/18): Right midpole multi-septated cystic nodule measuring up to 1.4 cm. TSH: 1.10 Substance abuse UDS on admission: + Cocaine * avoid beta jelani Counseled on cessation and patient voiced that he will stop using cocaine Bradycardia Asymptomatic * Continue to monitor on telemetry Orthostatic vitals were negative Prophylactic measure GI: Protonix 40mg PO daily DVT: Lovenox 30mg SC daily, SCDs Speech, occupational and physical therapy * As per speech therapy, advanced bite diet and thin liquids Disposition: Per physical therapy, patient's is improving; however, he is unable to go home at this time. Due to his current social situation, will await corrections caseworker regarding access to rehabilitation. Patient lives on the second floor without elevator access. He lives with an old roommate who is unable to assist him. Patient continues to work with physical therapy. Discussed with Dr. Racheal Olivares PGY-1 <Pardeep Springer - Last Filed: 02/14/18 15:00> Objective - Vital Signs/Intake and Output Vital Signs (last 24 hours): Temp Pulse Resp BP Pulse Ox 97.9 F 65 20 118/67 97 02/14/18 08:11 02/14/18 08:11 02/14/18 08:11 02/14/18 08:11 02/14/18 08:11 Intake and Output: 02/14/18 02/14/18 06:59 18:59 Intake Total 360 Output Total 350 Balance 10 - Medications Medications: Current Medications Aspirin (Aspirin Chewable) 81 mg PO DAILY [facility] Last Admin: 02/14/18 10:38 Dose: 81 mg Clopidogrel Bisulfate (Plavix) 75 mg PO DAILY [facility] Last Admin: 02/14/18 10:38 Dose: 75 mg Enoxaparin Sodium (Lovenox) 30 mg SC DAILY [facility] Last Admin: 02/14/18 10:38 Dose: 30 mg Meclizine HCl (Antivert) 25 mg PO Q12 [facility] Last Admin: 02/14/18 10:38 Dose: 25 mg Pantoprazole Sodium (Protonix Ec Tab) 40 mg PO DAILY [facility] Last Admin: 02/14/18 10:38 Dose: 40 mg Rosuvastatin Calcium (Crestor) 10 mg PO HS [facility] Last Admin: 02/13/18 21:52 Dose: 10 mg - Labs Labs: 02/13/18 07:14 02/13/18 07:14 PT 13.4 SECONDS (9.7-12.2) H 01/26/18 13:59 INR 1.2 01/26/18 13:59 APTT 35 SECONDS (21-34) H 01/26/18 13:59 Attending/Attestation - Attestation I have personally seen and examined this patient.: Yes I have fully participated in the care of the patient.: Yes I have reviewed all pertinent clinical information, including history, physical exam and plan: Yes Notes (Text): 02/14/18 15:00 Medical attending: Patient was seen and examined by me, agrees the above note by the biomedical technician. Review significant change of events. We continued to encourage exercise of the left upper and left lower extremity. As mentioned previously we watched him try to walk up steps with the physical therapist however this was very concerning what I saw him. He is high risk for falling. Thank you very much, Pardeep Springer
[2018-02-14] MEDS: Pantoprazole 40 mg EC Tab PO SCH (10:38)
[2018-02-14] MEDS: Enoxaparin 30 mg Syringe SC SCH (10:38)
--- NOTE | 2018-02-15 07:07 | CP.PCM.PN ---
<Samm Olivares - Last Filed: 02/15/18 10:49> Subjective - Date & Time of Evaluation Date of Evaluation: 02/15/18 Time of Evaluation: 07:30 - Subjective Subjective: Medicine progress note for Dr. Springer Patient seen and examined. Patient with no complaints at this time. No acute events noted. Patient remains motivated on working towards improvement. Objective - Vital Signs/Intake and Output Vital Signs (last 24 hours): Temp Pulse Resp BP Pulse Ox 97.3 F L 62 20 96/58 L 96 02/15/18 04:15 02/15/18 04:15 02/15/18 04:15 02/15/18 04:15 02/15/18 04:15 - Medications Medications: Current Medications Aspirin (Aspirin Chewable) 81 mg PO DAILY [facility] Last Admin: 02/14/18 10:38 Dose: 81 mg Clopidogrel Bisulfate (Plavix) 75 mg PO DAILY [facility] Last Admin: 02/14/18 10:38 Dose: 75 mg Enoxaparin Sodium (Lovenox) 30 mg SC DAILY [facility] Last Admin: 02/14/18 10:38 Dose: 30 mg Meclizine HCl (Antivert) 25 mg PO Q12 [facility] Last Admin: 02/14/18 21:30 Dose: 25 mg Pantoprazole Sodium (Protonix Ec Tab) 40 mg PO DAILY [facility] Last Admin: 02/14/18 10:38 Dose: 40 mg Rosuvastatin Calcium (Crestor) 10 mg PO HS [facility] Last Admin: 02/14/18 21:30 Dose: 10 mg - Labs Labs: 02/13/18 07:14 02/13/18 07:14 PT 13.4 SECONDS (9.7-12.2) H 01/26/18 13:59 INR 1.2 01/26/18 13:59 APTT 35 SECONDS (21-34) H 01/26/18 13:59 - Additional Findings Additional findings: - Constitutional Appears: Non-toxic, No Acute Distress - Head Exam Head Exam: ATRAUMATIC, NORMOCEPHALIC - Eye Exam Eye Exam: EOMI, Normal appearance - ENT Exam ENT Exam: Mucous Membranes Moist - Respiratory Exam Respiratory Exam: Clear to Auscultation Bilateral, NORMAL BREATHING PATTERN. absent: Accessory Muscle Use, Rales, Rhonchi, Wheezes, Respiratory Distress - Cardiovascular Exam Cardiovascular Exam: REGULAR RHYTHM, +S1, +S2 - GI/Abdominal Exam GI & Abdominal Exam: Soft, Normal Bowel Sounds. absent: Distended, Firm, Guarding, Rigid, Tenderness, Rebound - Extremities Exam Extremities Exam: absent: Calf Tenderness, Pedal Edema Additional comments: Moving all four extremities. - Neurological Exam Neurological Exam: Alert, Awake Neuro motor strength exam: Left Upper Extremity: 4 (improving), Right Upper Extremity: 5, Left Lower Extremity: 4, Right Lower Extremity: 5 - Psychiatric Exam Psychiatric exam: Normal Affect, Normal Mood - Skin Skin Exam: Dry, Warm Assessment and Plan - Assessment and Plan (Free Text) Plan: CVA (cerebral vascular accident) Neurology consult, Dr. Ceron consult---> Help appreciated * Management as per recommendation Lipid panel: TGL: 153, Chol: 174m LDL: 111, HDL: 35 Hemoglobin A1c: 5.[address] 02/12/18: No acute abnormalities. Large chronic right MCA territory infarct with involvement of parietal lobe. Head CT (01/26/18): Posterior right MCA territory subacute infarction. Head/Neck CTA (01/26/18): * 1. Plaque noted within the common carotid arteries bilaterally. * 2. The right cervical carotid is attenuated and appears lower in density and smaller caliber than on the contralateral side. * 3. Mucosal thickening within maxillary sinuses bilaterally. 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 * 4. 1.2 cm low density lesion in the right lobe of the thyroid. Recommend further evaluation with thyroid ultrasound. Carotid Doppler (01/27/18): Duplex scan does not suggest hemodynamically significant stenosis of the left and right extracranial carotid arteries Brain MRI (01/27/18): Large subacute right MCA territory infarction involving the parietal lobe with mild gyral edema without mass effect or midline shift. Small focus of subacute infarction in the right frontal subcortical white matter. Mild chronic microangiopathic changes and mild age-related global parenchymal volume loss. Echocardiogram (01/27/18): EF (60-65%), Mild TR & Pulmonic valve regurgitation. Recommendation to continue ASA 81mg PO daily and Plavix 75mg PO daily Hypercoagulable lab workup: Antiphospholipid antibodies, Factor V mutation, Protein S activity * Protein C activity within normal limit Medication and management: * Aspirin 81mg PO daily * Plavix 75mg PO daily * Crestor 10mg PO HS * Speech, occupational and physical therapy: As per physical therapy documentation, patient will benefit from ROM skilled PT in order to improve transfers and Gait patient is clinically evolving in presentation. * As per physical therapy evaluation, patient will need to be discharge to a rehabilitation Thyroid lesion Head/Neck CTA (01/26/18): 1.2 cm low density lesion in the right lobe of the thyroid. Recommend further evaluation with thyroid ultrasound. Thyroid Ultrasound (01/27/18): Right midpole multi-septated cystic nodule measuring up to 1.4 cm. TSH: 1.10 Substance abuse UDS on admission: + Cocaine * avoid beta jelani Counseled on cessation and patient voiced that he will stop using cocaine Bradycardia Asymptomatic * Continue to monitor on telemetry Orthostatic vitals were negative Prophylactic measure GI: Protonix 40mg PO daily DVT: Lovenox 30mg SC daily, SCDs Speech, occupational and physical therapy * As per speech therapy, advanced bite diet and thin liquids Disposition: Per physical therapy, patient's is improving; however, he is unable to go home at this time. Due to his current social situation, will await pillowcase cleaner regarding access to rehabilitation. Patient lives on the second floor without elevator access. He lives with an old roommate who is unable to assist him. Patient continues to work with physical therapy. No updates at this time. Discussed with Dr. Racheal Olivares PGY-1 <Pardeep Springer - Last Filed: 02/15/18 14:36> Objective - Vital Signs/Intake and Output Vital Signs (last 24 hours): Temp Pulse Resp BP Pulse Ox 98.1 F 51 L 20 109/60 97 02/15/18 07:00 02/15/18 07:00 02/15/18 07:00 02/15/18 07:00 02/15/18 07:00 Intake and Output: 02/15/18 02/15/18 06:59 18:59 Intake Total 400 Balance 400 - Medications Medications: Current Medications Aspirin (Aspirin Chewable) 81 mg PO DAILY [facility] Last Admin: 02/15/18 09:03 Dose: 81 mg Clopidogrel Bisulfate (Plavix) 75 mg PO DAILY [facility] Last Admin: 02/15/18 09:03 Dose: 75 mg Enoxaparin Sodium (Lovenox) 30 mg SC DAILY [facility] Last Admin: 02/15/18 09:02 Dose: 30 mg Meclizine HCl (Antivert) 25 mg PO Q12 [facility] Last Admin: 02/15/18 09:03 Dose: 25 mg Pantoprazole Sodium (Protonix Ec Tab) 40 mg PO DAILY [facility] Last Admin: 02/15/18 09:03 Dose: 40 mg Rosuvastatin Calcium (Crestor) 10 mg PO HS [facility] Last Admin: 02/14/18 21:30 Dose: 10 mg - Labs Labs: 02/13/18 07:14 02/13/18 07:14 PT 13.4 SECONDS (9.7-12.2) H 01/26/18 13:59 INR 1.2 01/26/18 13:59 APTT 35 SECONDS (21-34) H 01/26/18 13:59 Attending/Attestation - Attestation I have personally seen and examined this patient.: Yes I have fully participated in the care of the patient.: Yes I have reviewed all pertinent clinical information, including history, physical exam and plan: Yes Notes (Text): 02/15/18 14:34 Medical attending: Patient was seen and examined by me. Agree with the above note by the resident The patient was awake and alert. Calm. Following commands. As mentioned previously he still has the left body weakness both arms and legs. I have seen him walking slowly in the hallways However his biggest difficulty is when I watched him try to go up and down steps - he struggles a lot and needs assisstance thank you Pardeep Springer
[2018-02-15] MEDS: Enoxaparin 30 mg Syringe SC SCH (09:02)
[2018-02-15] MEDS: Pantoprazole 40 mg EC Tab PO SCH (09:03)
--- NOTE | 2018-02-16 03:23 | CP.PCM.PN ---
<VeeTena - Last Filed: 02/16/18 08:09> Subjective - Date & Time of Evaluation Date of Evaluation: 02/16/18 Time of Evaluation: 03:23 - Subjective Subjective: Progress note for Dr. Springer Patient seen and examined at bedside. Patient has no issues overnight. Patient denies fever, chills, nausea, vomiting, chest pain, increased muscle weakness. Objective - Vital Signs/Intake and Output Vital Signs (last 24 hours): Temp Pulse Resp BP Pulse Ox 98.1 F 60 20 119/76 98 02/15/18 23:17 02/15/18 23:17 02/15/18 23:17 02/15/18 23:17 02/15/18 23:17 Intake and Output: 02/15/18 02/16/18 18:59 06:59 Intake Total 400 360 Balance 400 360 - Medications Medications: Current Medications Aspirin (Aspirin Chewable) 81 mg PO DAILY [facility] Last Admin: 02/15/18 09:03 Dose: 81 mg Clopidogrel Bisulfate (Plavix) 75 mg PO DAILY [facility] Last Admin: 02/15/18 09:03 Dose: 75 mg Enoxaparin Sodium (Lovenox) 30 mg SC DAILY [facility] Last Admin: 02/15/18 09:02 Dose: 30 mg Meclizine HCl (Antivert) 25 mg PO Q12 [facility] Last Admin: 02/15/18 22:18 Dose: 25 mg Pantoprazole Sodium (Protonix Ec Tab) 40 mg PO DAILY [facility] Last Admin: 02/15/18 09:03 Dose: 40 mg Rosuvastatin Calcium (Crestor) 10 mg PO HS [facility] Last Admin: 02/15/18 22:18 Dose: 10 mg - Labs Labs: 02/13/18 07:14 02/13/18 07:14 PT 13.4 SECONDS (9.7-12.2) H 01/26/18 13:59 INR 1.2 01/26/18 13:59 APTT 35 SECONDS (21-34) H 01/26/18 13:59 - Constitutional Appears: Non-toxic, No Acute Distress - Head Exam Head Exam: ATRAUMATIC, NORMAL INSPECTION, NORMOCEPHALIC - Psychiatric Exam Psychiatric exam: Normal Affect, Normal Mood - Skin Skin Exam: Dry, Normal Color, Warm - Additional Findings Additional findings: - Eye Exam Eye Exam: EOMI, Normal appearance - ENT Exam ENT Exam: Mucous Membranes Moist - Respiratory Exam Respiratory Exam: Clear to Auscultation Bilateral, NORMAL BREATHING PATTERN. absent: Accessory Muscle Use, Rales, Rhonchi, Wheezes, Respiratory Distress - Cardiovascular Exam Cardiovascular Exam: REGULAR RHYTHM, +S1, +S2 - GI/Abdominal Exam GI & Abdominal Exam: Soft, Normal Bowel Sounds. absent: Distended, Firm, Guarding, Rigid, Tenderness, Rebound - Extremities Exam Extremities Exam: absent: Calf Tenderness, Pedal Edema Additional comments: Patient is seen moving all four extremities spontaneously and on command - Neurological Exam Neurological Exam: Alert, Awake Neuro motor strength exam: Left Upper Extremity: 4/5, Right Upper Extremity: 5/5 , Left Lower Extremity: 4/5, Right Lower Extremity: 5/5 Assessment and Plan - Assessment and Plan (Free Text) Assessment: CVA (cerebral vascular accident) Neurology consult, Dr. Ceron consult---> Help appreciated * Management as per recommendation Lipid panel: TGL: 153, Chol: 174m LDL: 111, HDL: 35 Hemoglobin A1c: 5.[address] 02/12/18: No acute abnormalities. Large chronic right MCA territory infarct with involvement of parietal lobe. Head CT (01/26/18): Posterior right MCA territory subacute infarction. Head/Neck CTA (01/26/18): * 1. Plaque noted within the common carotid arteries bilaterally. * 2. The right cervical carotid is attenuated and appears lower in density and smaller caliber than on the contralateral side. * 3. Mucosal thickening within maxillary sinuses bilaterally. 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 * 4. 1.2 cm low density lesion in the right lobe of the thyroid. Recommend further evaluation with thyroid ultrasound. Carotid Doppler (01/27/18): Duplex scan does not suggest hemodynamically significant stenosis of the left and right extracranial carotid arteries Brain MRI (01/27/18): Large subacute right MCA territory infarction involving the parietal lobe with mild gyral edema without mass effect or midline shift. Small focus of subacute infarction in the right frontal subcortical white matter. Mild chronic microangiopathic changes and mild age-related global parenchymal volume loss. Echocardiogram (01/27/18): EF (60-65%), Mild TR & Pulmonic valve regurgitation. Recommendation to continue ASA 81mg PO daily and Plavix 75mg PO daily Hypercoagulable lab workup: Antiphospholipid antibodies, Factor V mutation, Protein S activity * Protein C activity within normal limit Medication and management: * Aspirin 81mg PO daily * Plavix 75mg PO daily * Crestor 10mg PO HS * Speech, occupational and physical therapy: As per physical therapy documentation, patient will benefit from ROM skilled PT in order to improve transfers and Gait patient is clinically evolving in presentation. * As per physical therapy evaluation, patient will need to be discharge to a rehabilitation Thyroid lesion Head/Neck CTA (01/26/18): 1.2 cm low density lesion in the right lobe of the thyroid. Recommend further evaluation with thyroid ultrasound. Thyroid Ultrasound (01/27/18): Right midpole multi-septated cystic nodule measuring up to 1.4 cm. TSH: 1.10 Substance abuse UDS on admission: + Cocaine * avoid beta jelani Counseled on cessation and patient voiced that he will stop using cocaine Bradycardia Asymptomatic * Continue to monitor on telemetry Orthostatic vitals were negative Prophylactic measure GI: Protonix 40mg PO daily DVT: Lovenox 30mg SC daily, SCDs Speech, occupational and physical therapy * As per speech therapy, advanced bite diet and thin liquids Disposition: Per physical therapy, patient's is improving; however, he is unable to go home at this time. Due to his current social situation, will await case investigator regarding access to rehabilitation. Patient lives on the second floor without elevator access. Patient lives with roommate who is unable to assist him. Patient continues to work with physical therapy. No updates at this time. Discussed with Dr. Racheal Baxter DO PGY1 <Pardeep Springer H - Last Filed: 02/16/18 11:50> Objective - Vital Signs/Intake and Output Vital Signs (last 24 hours): Temp Pulse Resp BP Pulse Ox 98.1 F 59 L 20 139/82 98 02/16/18 07:00 02/16/18 07:00 02/16/18 07:00 02/16/18 10:41 02/16/18 07:00 Intake and Output: 02/16/18 02/16/18 06:59 18:59 Intake Total 360 Balance 360 - Medications Medications: Current Medications Aspirin (Aspirin Chewable) 81 mg PO DAILY [facility] Last Admin: 02/16/18 09:02 Dose: 81 mg Clopidogrel Bisulfate (Plavix) 75 mg PO DAILY [facility] Last Admin: 02/16/18 09:02 Dose: 75 mg Enoxaparin Sodium (Lovenox) 30 mg SC DAILY [facility] Last Admin: 02/16/18 09:02 Dose: 30 mg Meclizine HCl (Antivert) 25 mg PO Q12 [facility] Last Admin: 02/16/18 09:02 Dose: 25 mg Pantoprazole Sodium (Protonix Ec Tab) 40 mg PO DAILY [facility] Last Admin: 02/16/18 09:02 Dose: 40 mg Rosuvastatin Calcium (Crestor) 10 mg PO HS [facility] Last Admin: 02/15/18 22:18 Dose: 10 mg - Labs Labs: 02/16/18 06:18 02/16/18 06:18 PT 13.4 SECONDS (9.7-12.2) H 01/26/18 13:59 INR 1.2 01/26/18 13:59 APTT 35 SECONDS (21-34) H 01/26/18 13:59 Attending/Attestation - Attestation I have personally seen and examined this patient.: Yes I have fully participated in the care of the patient.: Yes I have reviewed all pertinent clinical information, including history, physical exam and plan: Yes Notes (Text): 02/16/18 11:49 Medical attending: Patient was sleeping when I saw him. I will come back later today to see him As mentioned previously he contiunes to get PT while here. We have been encouraging him to excercise his Left upper and Left lower extremities. He is able to walk with PT with assistance - his trouble is getting up steps. thank you Pardeep Springer
[2018-02-16 06:28] LABS: BASO # 0.1 K/uL (0.0-0.2); EOS # 0.4 K/uL (0.0-0.7); EOS % 4.4 % (0.0-4.0); LYMPH # 2.3 K/uL (1.0-4.3); LYMPH % 23.3 % (20.0-40.0); MEAN CELL VOLUME 85.1 fL (80.0-94.0); MEAN CORPUSCULAR HEMOGLOBIN 28.1 pg (27.0-31.0); MEAN PLATELET VOLUME 7.1 fL (7.2-11.7); MONO # 0.7 K/uL (0.0-0.8); NEUT # 6.4 K/uL (1.8-7.0); NEUT % 64.3 % (50.0-75.0); RBC 4.99 Mil/uL (4.40-5.90); RED CELL DISTRIBUTION WIDTH 14.3 % (11.5-14.5); WHITE BLOOD COUNT 9.9 K/uL (4.8-10.8)
[2018-02-16 06:40] LABS: ALB/GLOB RATIO 1.1 (1.0-2.1); ALBUMIN 3.7 g/dL (3.5-5.0); ALT/SGPT 55 U/L (21-72); AST/SGOT 36 U/L (17-59); BLOOD UREA NITROGEN 16 mg/dL (9-20); GFR AFRICAN-AMERICAN > 60; GFR NON-AFRICAN AMERICAN > 60
[2018-02-16] MEDS: Enoxaparin 30 mg Syringe SC SCH (09:02)
[2018-02-16] MEDS: Pantoprazole 40 mg EC Tab PO SCH (09:02)
--- NOTE | 2018-02-17 03:45 | CP.PCM.PN ---
<Tena Baxter - Last Filed: 02/17/18 03:46> Subjective - Date & Time of Evaluation Date of Evaluation: 02/17/18 Time of Evaluation: 04:00 - Subjective Subjective: Progress Note for Dr. Springer Patient seen and examined at bedside. left sided weakness persists, but patient is able to move all four extremities. Patient states he feels better. No acute events noted. Patient continues to work on building strength and improving gait. Objective - Vital Signs/Intake and Output Vital Signs (last 24 hours): Temp Pulse Resp BP Pulse Ox 97.7 F 55 L 20 111/66 97 02/16/18 23:10 02/16/18 23:10 02/16/18 23:10 02/16/18 23:10 02/16/18 23:10 Intake and Output: 02/16/18 02/17/18 18:59 06:59 Intake Total 400 500 Balance 400 500 - Medications Medications: Current Medications Aspirin (Aspirin Chewable) 81 mg PO DAILY [facility] Last Admin: 02/16/18 09:02 Dose: 81 mg Clopidogrel Bisulfate (Plavix) 75 mg PO DAILY [facility] Last Admin: 02/16/18 09:02 Dose: 75 mg Enoxaparin Sodium (Lovenox) 30 mg SC DAILY [facility] Last Admin: 02/16/18 09:02 Dose: 30 mg Meclizine HCl (Antivert) 25 mg PO Q12 [facility] Last Admin: 02/16/18 21:06 Dose: 25 mg Pantoprazole Sodium (Protonix Ec Tab) 40 mg PO DAILY [facility] Last Admin: 02/16/18 09:02 Dose: 40 mg Rosuvastatin Calcium (Crestor) 10 mg PO HS [facility] Last Admin: 02/16/18 21:06 Dose: 10 mg - Labs Labs: 02/16/18 06:18 02/16/18 06:18 PT 13.4 SECONDS (9.7-12.2) H 01/26/18 13:59 INR 1.2 01/26/18 13:59 APTT 35 SECONDS (21-34) H 01/26/18 13:59 - Additional Findings Additional findings: Constitutional Appears: Non-toxic, No Acute Distress - Head Exam Head Exam: ATRAUMATIC, NORMAL INSPECTION, NORMOCEPHALIC - Psychiatric Exam Psychiatric exam: Normal Affect, Normal Mood - Skin Skin Exam: Dry, Normal Color, Warm - Additional Findings Additional findings: - Eye Exam Eye Exam: EOMI, Normal appearance - ENT Exam ENT Exam: Mucous Membranes Moist - Respiratory Exam Respiratory Exam: Clear to Auscultation Bilateral, NORMAL BREATHING PATTERN. absent: Accessory Muscle Use, Rales, Rhonchi, Wheezes, Respiratory Distress - Cardiovascular Exam Cardiovascular Exam: REGULAR RHYTHM, +S1, +S2 - GI/Abdominal Exam GI & Abdominal Exam: Soft, Normal Bowel Sounds. absent: Distended, Firm, Guarding, Rigid, Tenderness, Rebound - Extremities Exam Extremities Exam: absent: Calf Tenderness, Pedal Edema Additional comments: Patient is seen moving all four extremities spontaneously and on command, patient has difficulty ambulating per PT notes - Neurological Exam Neurological Exam: Alert, Awake Neuro motor strength exam: Left Upper Extremity: 4/5, Right Upper Extremity: 5/5 , Left Lower Extremity: 4/5, Right Lower Extremity: 5/5 Assessment and Plan - Assessment and Plan (Free Text) Assessment: CVA (cerebral vascular accident) Neurology consult, Dr. Ceron consult---> Help appreciated * Management as per recommendation Lipid panel: TGL: 153, Chol: 174m LDL: 111, HDL: 35 Hemoglobin A1c: 5.[address] 02/12/18: No acute abnormalities. Large chronic right MCA territory infarct with involvement of parietal lobe. Head CT (01/26/18): Posterior right MCA territory subacute infarction. Head/Neck CTA (01/26/18): * 1. Plaque noted within the common carotid arteries bilaterally. * 2. The right cervical carotid is attenuated and appears lower in density and smaller caliber than on the contralateral side. * 3. Mucosal thickening within maxillary sinuses bilaterally. 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 * 4. 1.2 cm low density lesion in the right lobe of the thyroid. Recommend further evaluation with thyroid ultrasound. Carotid Doppler (01/27/18): Duplex scan does not suggest hemodynamically significant stenosis of the left and right extracranial carotid arteries Brain MRI (01/27/18): Large subacute right MCA territory infarction involving the parietal lobe with mild gyral edema without mass effect or midline shift. Small focus of subacute infarction in the right frontal subcortical white matter. Mild chronic microangiopathic changes and mild age-related global parenchymal volume loss. Echocardiogram (01/27/18): EF (60-65%), Mild TR & Pulmonic valve regurgitation. Recommendation to continue ASA 81mg PO daily and Plavix 75mg PO daily Hypercoagulable lab workup: Antiphospholipid antibodies, Factor V mutation, Protein S activity * Protein C activity within normal limit Medication and management: * Aspirin 81mg PO daily * Plavix 75mg PO daily * Crestor 10mg PO HS * Speech, occupational and physical therapy: As per physical therapy documentation, patient will benefit from ROM skilled PT in order to improve transfers and Gait patient is clinically evolving in presentation. * As per physical therapy evaluation, patient will need to be discharge to a rehabilitation Thyroid lesion Head/Neck CTA (01/26/18): 1.2 cm low density lesion in the right lobe of the thyroid. Recommend further evaluation with thyroid ultrasound. Thyroid Ultrasound (01/27/18): Right midpole multi-septated cystic nodule measuring up to 1.4 cm. TSH: 1.10 Substance abuse UDS on admission: + Cocaine * avoid beta jelani Counseled on cessation and patient voiced that he will stop using cocaine Bradycardia Asymptomatic * Continue to monitor on telemetry Orthostatic vitals were negative Prophylactic measure GI: Protonix 40mg PO daily DVT: Lovenox 30mg SC daily, SCDs Speech, occupational and physical therapy * As per speech therapy, advanced bite diet and thin liquids Disposition: Per physical therapy, patient's is improving; however, he is unable to go home at this time. Due to his current social situation, will await immigration case worker regarding access to rehabilitation. Patient lives on the second floor without elevator access. Patient lives with roommate who is unable to assist him. Patient continues to work with physical therapy. No updates at this time. Discussed with Dr. Racheal Baxter DO PGY1 <Pardeep Springer - Last Filed: 02/17/18 12:01> Objective - Vital Signs/Intake and Output Vital Signs (last 24 hours): Temp Pulse Resp BP Pulse Ox 98.1 F 58 L 20 119/70 97 02/17/18 07:00 02/17/18 07:00 02/17/18 07:00 02/17/18 07:00 02/17/18 07:00 Intake and Output: 02/17/18 02/17/18 06:59 18:59 Intake Total 550 Balance 550 - Medications Medications: Current Medications Aspirin (Aspirin Chewable) 81 mg PO DAILY [facility] Last Admin: 02/17/18 09:07 Dose: 81 mg Clopidogrel Bisulfate (Plavix) 75 mg PO DAILY [facility] Last Admin: 02/17/18 09:07 Dose: 75 mg Enoxaparin Sodium (Lovenox) 30 mg SC DAILY [facility] Last Admin: 02/17/18 09:07 Dose: 30 mg Meclizine HCl (Antivert) 25 mg PO Q12 [facility] Last Admin: 02/17/18 09:07 Dose: 25 mg Pantoprazole Sodium (Protonix Ec Tab) 40 mg PO DAILY [facility] Last Admin: 02/17/18 09:07 Dose: 40 mg Rosuvastatin Calcium (Crestor) 10 mg PO HS [facility] Last Admin: 02/16/18 21:06 Dose: 10 mg - Labs Labs: 02/16/18 06:18 02/16/18 06:18 PT 13.4 SECONDS (9.7-12.2) H 01/26/18 13:59 INR 1.2 01/26/18 13:59 APTT 35 SECONDS (21-34) H 01/26/18 13:59 Attending/Attestation - Attestation I have personally seen and examined this patient.: Yes I have fully participated in the care of the patient.: Yes I have reviewed all pertinent clinical information, including history, physical exam and plan: Yes Notes (Text): 02/17/18 12:00 Medical attending: Patient was seen and examined by me. Agree with the above note by the resident I had hoped to discharge him these past few days however his big problem is going up and down steps - I saw him with PT and he needs a lot of assistance. Otherwise he is able to get around on the floor very slowly with a cane. Please do not check labs every day - do it every other day. thank you Pardeep Springer
[2018-02-17] MEDS: Enoxaparin 30 mg Syringe SC SCH (09:07)
[2018-02-17] MEDS: Pantoprazole 40 mg EC Tab PO SCH (09:07)
--- NOTE | 2018-02-18 07:06 | CP.PCM.PN ---
<Samm Olivares - Last Filed: 02/18/18 13:37> Subjective - Date & Time of Evaluation Date of Evaluation: 02/18/18 Time of Evaluation: 07:20 - Subjective Subjective: Medicine progress note for Dr. Baker Patient seen and examined. Patient reports no acute complaints at this time. He continues to work on recovering range of motion and strength in his affected extremities. Objective - Vital Signs/Intake and Output Vital Signs (last 24 hours): Temp Pulse Resp BP Pulse Ox 98.2 F 57 L 18 122/71 97 02/17/18 23:17 02/17/18 23:17 02/17/18 23:17 02/17/18 23:17 02/17/18 23:17 Intake and Output: 02/18/18 02/18/18 06:59 18:59 Intake Total 500 Output Total 400 Balance 100 - Medications Medications: Current Medications Aspirin (Aspirin Chewable) 81 mg PO DAILY [facility] Last Admin: 02/17/18 09:07 Dose: 81 mg Clopidogrel Bisulfate (Plavix) 75 mg PO DAILY [facility] Last Admin: 02/17/18 09:07 Dose: 75 mg Enoxaparin Sodium (Lovenox) 30 mg SC DAILY [facility] Last Admin: 02/17/18 09:07 Dose: 30 mg Meclizine HCl (Antivert) 25 mg PO Q12 [facility] Last Admin: 02/17/18 21:00 Dose: 25 mg Pantoprazole Sodium (Protonix Ec Tab) 40 mg PO DAILY [facility] Last Admin: 02/17/18 09:07 Dose: 40 mg Rosuvastatin Calcium (Crestor) 10 mg PO HS [facility] Last Admin: 02/17/18 21:00 Dose: 10 mg - Labs Labs: 02/16/18 06:18 02/16/18 06:18 PT 13.4 SECONDS (9.7-12.2) H 01/26/18 13:59 INR 1.2 01/26/18 13:59 APTT 35 SECONDS (21-34) H 01/26/18 13:59 - Additional Findings Additional findings: Constitutional Appears: Non-toxic, No Acute Distress - Head Exam Head Exam: ATRAUMATIC, NORMAL INSPECTION, NORMOCEPHALIC - Psychiatric Exam Psychiatric exam: Normal Affect, Normal Mood - Skin Skin Exam: Dry, Normal Color, Warm - Additional Findings Additional findings: - Eye Exam Eye Exam: EOMI, Normal appearance - ENT Exam ENT Exam: Mucous Membranes Moist - Respiratory Exam Respiratory Exam: Clear to Auscultation Bilateral, NORMAL BREATHING PATTERN. absent: Accessory Muscle Use, Rales, Rhonchi, Wheezes, Respiratory Distress - Cardiovascular Exam Cardiovascular Exam: REGULAR RHYTHM, +S1, +S2 - GI/Abdominal Exam GI & Abdominal Exam: Soft, Normal Bowel Sounds. absent: Distended, Firm, Guarding, Rigid, Tenderness, Rebound - Extremities Exam Extremities Exam: absent: Calf Tenderness, Pedal Edema Additional comments: Patient is seen moving all four extremities spontaneously and on command, patient has difficulty ambulating per PT notes - Neurological Exam Neurological Exam: Alert, Awake Neuro motor strength exam: Left Upper Extremity: 4/5, Right Upper Extremity: 5/5 , Left Lower Extremity: 4/5, Right Lower Extremity: 5/5 Assessment and Plan - Assessment and Plan (Free Text) Plan: CVA (cerebral vascular accident) Neurology consult, Dr. Ceron consult---> Help appreciated * Management as per recommendation Lipid panel: TGL: 153, Chol: 174m LDL: 111, HDL: 35 Hemoglobin A1c: 5.[address] 02/12/18: No acute abnormalities. Large chronic right MCA territory infarct with involvement of parietal lobe. Head CT (01/26/18): Posterior right MCA territory subacute infarction. Head/Neck CTA (01/26/18): * 1. Plaque noted within the common carotid arteries bilaterally. * 2. The right cervical carotid is attenuated and appears lower in density and smaller caliber than on the contralateral side. * 3. Mucosal thickening within maxillary sinuses bilaterally. 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 * 4. 1.2 cm low density lesion in the right lobe of the thyroid. Recommend further evaluation with thyroid ultrasound. Carotid Doppler (01/27/18): Duplex scan does not suggest hemodynamically significant stenosis of the left and right extracranial carotid arteries Brain MRI (01/27/18): Large subacute right MCA territory infarction involving the parietal lobe with mild gyral edema without mass effect or midline shift. Small focus of subacute infarction in the right frontal subcortical white matter. Mild chronic microangiopathic changes and mild age-related global parenchymal volume loss. Echocardiogram (01/27/18): EF (60-65%), Mild TR & Pulmonic valve regurgitation. Recommendation to continue ASA 81mg PO daily and Plavix 75mg PO daily Hypercoagulable lab workup: Antiphospholipid antibodies, Factor V mutation, Protein S activity * Protein C activity within normal limit Medication and management: * Aspirin 81mg PO daily * Plavix 75mg PO daily * Crestor 10mg PO HS * Speech, occupational and physical therapy: As per physical therapy documentation, patient will benefit from ROM skilled PT in order to improve transfers and Gait patient is clinically evolving in presentation. * As per physical therapy evaluation, patient will need to be discharge to a rehabilitation Thyroid lesion Head/Neck CTA (01/26/18): 1.2 cm low density lesion in the right lobe of the thyroid. Recommend further evaluation with thyroid ultrasound. Thyroid Ultrasound (01/27/18): Right midpole multi-septated cystic nodule measuring up to 1.4 cm. TSH: 1.10 Substance abuse UDS on admission: + Cocaine * avoid beta jelani Counseled on cessation and patient voiced that he will stop using cocaine Bradycardia Asymptomatic * Continue to monitor on telemetry Orthostatic vitals were negative Prophylactic measure GI: Protonix 40mg PO daily DVT: Lovenox 30mg SC daily, SCDs Speech, occupational and physical therapy * As per speech therapy, advanced bite diet and thin liquids Disposition: Per physical therapy, patient's is improving; however, he is unable to go home at this time. Due to his current social situation, will await geriatric case manager regarding access to rehabilitation. Patient lives on the second floor without elevator access. Patient lives with roommate who is unable to assist him. Patient continues to work with physical therapy. There are no updates at this time. Discussed with Dr. Samuel Olivares PGY-1 <Blanca Baker - Last Filed: 02/18/18 18:18> Objective - Vital Signs/Intake and Output Vital Signs (last 24 hours): Temp Pulse Resp BP Pulse Ox 97.6 F 59 L 20 117/67 96 02/18/18 15:00 02/18/18 15:00 02/18/18 15:00 02/18/18 15:00 02/18/18 15:00 Intake and Output: 02/18/18 02/18/18 06:59 18:59 Intake Total 500 500 Output Total 400 Balance 100 500 - Medications Medications: Current Medications Aspirin (Aspirin Chewable) 81 mg PO DAILY [facility] Last Admin: 02/18/18 09:04 Dose: 81 mg Clopidogrel Bisulfate (Plavix) 75 mg PO DAILY [facility] Last Admin: 02/18/18 09:04 Dose: 75 mg Meclizine HCl (Antivert) 25 mg PO Q12 [facility] Last Admin: 02/18/18 09:03 Dose: 25 mg Pantoprazole Sodium (Protonix Ec Tab) 40 mg PO DAILY [facility] Last Admin: 02/18/18 09:04 Dose: 40 mg Rosuvastatin Calcium (Crestor) 10 mg PO HS [facility] Last Admin: 02/17/18 21:00 Dose: 10 mg - Labs Labs: 02/16/18 06:18 02/16/18 06:18 PT 13.4 SECONDS (9.7-12.2) H 01/26/18 13:59 INR 1.2 01/26/18 13:59 APTT 35 SECONDS (21-34) H 01/26/18 13:59 Attending/Attestation - Attestation I have personally seen and examined this patient.: Yes I have fully participated in the care of the patient.: Yes I have reviewed all pertinent clinical information, including history, physical exam and plan: Yes Notes (Text): Seen and examined No complain Improving. Unsteady to use stairs continue PT D/w Resident. I agree with the resident's assessment and the plan 02/18/18 18:17
[2018-02-18] MEDS: Enoxaparin 30 mg Syringe SC SCH (09:04)
[2018-02-18] MEDS: Pantoprazole 40 mg EC Tab PO SCH (09:04)
--- NOTE | 2018-02-19 07:10 | CP.PCM.PN ---
<Samm Olivares - Last Filed: 02/19/18 14:20> Subjective - Date & Time of Evaluation Date of Evaluation: 02/19/18 Time of Evaluation: 07:00 - Subjective Subjective: Medicine progress note for Dr. Baker Patient seen and examined. Patient reports no acute complaints at this time. He reports significant progress as compared to when he first started. He continues to work with physical therapy. Objective - Vital Signs/Intake and Output Vital Signs (last 24 hours): Temp Pulse Resp BP Pulse Ox 97.4 F L 52 L 20 104/60 98 02/19/18 04:15 02/19/18 04:15 02/19/18 04:15 02/19/18 04:15 02/19/18 04:15 Intake and Output: 02/19/18 02/19/18 06:59 18:59 Intake Total 500 Balance 500 - Medications Medications: Current Medications Aspirin (Aspirin Chewable) 81 mg PO DAILY [facility] Last Admin: 02/18/18 09:04 Dose: 81 mg Clopidogrel Bisulfate (Plavix) 75 mg PO DAILY [facility] Last Admin: 02/18/18 09:04 Dose: 75 mg Meclizine HCl (Antivert) 25 mg PO Q12 [facility] Last Admin: 02/18/18 21:03 Dose: 25 mg Pantoprazole Sodium (Protonix Ec Tab) 40 mg PO DAILY [facility] Last Admin: 02/18/18 09:04 Dose: 40 mg Rosuvastatin Calcium (Crestor) 10 mg PO HS [facility] Last Admin: 02/18/18 21:03 Dose: 10 mg - Labs Labs: 02/16/18 06:18 02/16/18 06:18 PT 13.4 SECONDS (9.7-12.2) H 01/26/18 13:59 INR 1.2 01/26/18 13:59 APTT 35 SECONDS (21-34) H 01/26/18 13:59 - Additional Findings Additional findings: Constitutional Appears: Non-toxic, No Acute Distress - Head Exam Head Exam: ATRAUMATIC, NORMAL INSPECTION, NORMOCEPHALIC - Psychiatric Exam Psychiatric exam: Normal Affect, Normal Mood - Skin Skin Exam: Dry, Normal Color, Warm - Additional Findings Additional findings: - Eye Exam Eye Exam: EOMI, Normal appearance - ENT Exam ENT Exam: Mucous Membranes Moist - Respiratory Exam Respiratory Exam: Clear to Auscultation Bilateral, NORMAL BREATHING PATTERN. absent: Accessory Muscle Use, Rales, Rhonchi, Wheezes, Respiratory Distress - Cardiovascular Exam Cardiovascular Exam: REGULAR RHYTHM, +S1, +S2 - GI/Abdominal Exam GI & Abdominal Exam: Soft, Normal Bowel Sounds. absent: Distended, Firm, Guarding, Rigid, Tenderness, Rebound - Extremities Exam Extremities Exam: absent: Calf Tenderness, Pedal Edema Additional comments: Patient is seen moving all four extremities spontaneously and on command, patient has difficulty ambulating per PT notes - Neurological Exam Neurological Exam: Alert, Awake Neuro motor strength exam: Left Upper Extremity: 4/5, Right Upper Extremity: 5/5 , Left Lower Extremity: 4/5, Right Lower Extremity: 5/5 Assessment and Plan - Assessment and Plan (Free Text) Plan: CVA (cerebral vascular accident) Neurology consult, Dr. Ceron consult---> Help appreciated * Management as per recommendation Lipid panel: TGL: 153, Chol: 174m LDL: 111, HDL: 35 Hemoglobin A1c: 5.[address] 02/12/18: No acute abnormalities. Large chronic right MCA territory infarct with involvement of parietal lobe. Head CT (01/26/18): Posterior right MCA territory subacute infarction. Head/Neck CTA (01/26/18): * 1. Plaque noted within the common carotid arteries bilaterally. * 2. The right cervical carotid is attenuated and appears lower in density and smaller caliber than on the contralateral side. * 3. Mucosal thickening within maxillary sinuses bilaterally. 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 * 4. 1.2 cm low density lesion in the right lobe of the thyroid. Recommend further evaluation with thyroid ultrasound. Carotid Doppler (01/27/18): Duplex scan does not suggest hemodynamically significant stenosis of the left and right extracranial carotid arteries Brain MRI (01/27/18): Large subacute right MCA territory infarction involving the parietal lobe with mild gyral edema without mass effect or midline shift. Small focus of subacute infarction in the right frontal subcortical white matter. Mild chronic microangiopathic changes and mild age-related global parenchymal volume loss. Echocardiogram (01/27/18): EF (60-65%), Mild TR & Pulmonic valve regurgitation. Recommendation to continue ASA 81mg PO daily and Plavix 75mg PO daily Hypercoagulable lab workup: Antiphospholipid antibodies, Factor V mutation, Protein S activity * Protein C activity within normal limit Medication and management: * Aspirin 81mg PO daily * Plavix 75mg PO daily * Crestor 10mg PO HS * Speech, occupational and physical therapy: As per physical therapy documentation, patient will benefit from ROM skilled PT in order to improve transfers and Gait patient is clinically evolving in presentation. * As per physical therapy evaluation, patient will need to be discharge to a rehabilitation Thyroid lesion Head/Neck CTA (01/26/18): 1.2 cm low density lesion in the right lobe of the thyroid. Recommend further evaluation with thyroid ultrasound. Thyroid Ultrasound (01/27/18): Right midpole multi-septated cystic nodule measuring up to 1.4 cm. TSH: 1.10 Substance abuse UDS on admission: + Cocaine * avoid beta jelani Counseled on cessation and patient voiced that he will stop using cocaine Bradycardia Asymptomatic * Continue to monitor on telemetry Orthostatic vitals were negative Prophylactic measure GI: Protonix 40mg PO daily DVT: Lovenox 30mg SC daily, SCDs Speech, occupational and physical therapy * As per speech therapy, advanced bite diet and thin liquids Disposition: Per physical therapy, patient's is improving; however, he is unable to go home at this time. Due to his current social situation, will await top case assembler regarding access to rehabilitation. Patient lives on the second floor without elevator access. Patient lives with roommate who is unable to assist him. Patient continues to work with physical therapy. There are no updates at this time. Prescription given for walker that will be modified by PT for the patient's needs. Discussed with Dr. Samuel Olivares PGY-1 <Blanca Baker - Last Filed: 02/20/18 16:14> Objective - Vital Signs/Intake and Output Vital Signs (last 24 hours): Temp Pulse Resp BP Pulse Ox 98.3 F 51 L 20 103/61 97 02/20/18 07:30 02/20/18 07:30 02/20/18 07:30 02/20/18 07:30 02/20/18 07:30 Intake and Output: 02/20/18 02/20/18 06:59 18:59 Intake Total 400 Balance 400 - Labs Labs: 02/19/18 06:37 02/19/18 06:37 PT 13.4 SECONDS (9.7-12.2) H 01/26/18 13:59 INR 1.2 01/26/18 13:59 APTT 35 SECONDS (21-34) H 01/26/18 13:59 Attending/Attestation - Attestation I have personally seen and examined this patient.: Yes I have fully participated in the care of the patient.: Yes I have reviewed all pertinent clinical information, including history, physical exam and plan: Yes Notes (Text): seen and examined no complain Improving and he is motivated to do exercise.completed plavix.will go on asprin I agree with the resident's documentation of the assessment and the plan
[2018-02-19 07:28] LABS: BASO # 0.1 K/uL (0.0-0.2); BASO % 0.9 % (0.0-2.0); EOS # 0.4 K/uL (0.0-0.7); EOS % 5.2 % (0.0-4.0); HEMOGLOBIN 14.5 g/dL (12.0-18.0); LYMPH % 23.4 % (20.0-40.0); MEAN CELL VOLUME 85.2 fL (80.0-94.0); MEAN CORPUSCULAR HEMOGLOBIN 28.5 pg (27.0-31.0); MEAN CORPUSCULAR HGB CONC 33.4 g/dL (33.0-37.0); MEAN PLATELET VOLUME 7.3 fL (7.2-11.7); MONO # 0.7 K/uL (0.0-0.8); MONO % 7.9 % (0.0-10.0); NEUT # 5.3 K/uL (1.8-7.0); NEUT % 62.6 % (50.0-75.0); NRBC % 0.1 % (0.0-2.0); RBC 5.09 Mil/uL (4.40-5.90); RED CELL DISTRIBUTION WIDTH 14.4 % (11.5-14.5); WHITE BLOOD COUNT 8.5 K/uL (4.8-10.8)
[2018-02-19 08:10] LABS: ALB/GLOB RATIO 1.2 (1.0-2.1); ALBUMIN 3.7 g/dL (3.5-5.0); ALT/SGPT 50 U/L (21-72); AST/SGOT 57 U/L (17-59); BLOOD UREA NITROGEN 15 mg/dL (9-20); CALCIUM 9.3 mg/dl (8.6-10.4); GFR AFRICAN-AMERICAN > 60; GFR NON-AFRICAN AMERICAN > 60
[2018-02-19] MEDS: Pantoprazole 40 mg EC Tab PO SCH (09:22)
[2018-02-19] MEDS: Enoxaparin 30 mg Syringe SC SCH (09:22)
[2018-02-19 15:54] VITALS: RESP 20
[2018-02-20 01:22] VITALS: O2SAT 97
--- NOTE | 2018-02-20 07:36 | CP.PCM.PN ---
Subjective - Date & Time of Evaluation Date of Evaluation: 02/20/18 Time of Evaluation: 09:10 - Subjective Subjective: Medicine progress note for Dr. Baker Patient seen and examined. Patient reports no acute complaints at this time. Patient continues to work on his strength and mobility. Objective - Vital Signs/Intake and Output Vital Signs (last 24 hours): Temp Pulse Resp BP Pulse Ox 98.0 F 60 20 127/81 97 02/19/18 23:20 02/19/18 23:20 02/19/18 23:20 02/19/18 23:20 02/19/18 23:20 - Medications Medications: Current Medications Aspirin (Aspirin Chewable) 81 mg PO DAILY [facility] Last Admin: 02/19/18 09:22 Dose: 81 mg Clopidogrel Bisulfate (Plavix) 75 mg PO DAILY [facility] Last Admin: 02/19/18 09:22 Dose: 75 mg Enoxaparin Sodium (Lovenox) 30 mg SC DAILY [facility] Last Admin: 02/19/18 09:22 Dose: 30 mg Meclizine HCl (Antivert) 25 mg PO Q12 [facility] Last Admin: 02/19/18 21:20 Dose: 25 mg Pantoprazole Sodium (Protonix Ec Tab) 40 mg PO DAILY [facility] Last Admin: 02/19/18 09:22 Dose: 40 mg Rosuvastatin Calcium (Crestor) 10 mg PO HS [facility] Last Admin: 02/19/18 21:20 Dose: 10 mg - Labs Labs: 02/19/18 06:37 02/19/18 06:37 PT 13.4 SECONDS (9.7-12.2) H 01/26/18 13:59 INR 1.2 01/26/18 13:59 APTT 35 SECONDS (21-34) H 01/26/18 13:59 - Additional Findings Additional findings: - Constitutional Appears: Non-toxic, No Acute Distress - Head Exam Head Exam: ATRAUMATIC, NORMOCEPHALIC - Eye Exam Eye Exam: EOMI, Normal appearance - ENT Exam ENT Exam: Mucous Membranes Moist - Respiratory Exam Respiratory Exam: Clear to Auscultation Bilateral, NORMAL BREATHING PATTERN. absent: Accessory Muscle Use, Rales, Rhonchi, Wheezes, Respiratory Distress - Cardiovascular Exam Cardiovascular Exam: REGULAR RHYTHM, +S1, +S2 - GI/Abdominal Exam GI & Abdominal Exam: Soft, Normal Bowel Sounds. absent: Distended, Firm, Guarding, Rigid, Tenderness, Rebound - Extremities Exam Extremities Exam: absent: Calf Tenderness, Pedal Edema Additional comments: Moving all four extremities. - Neurological Exam Neurological Exam: Alert, Awake Neuro motor strength exam: Left Upper Extremity: 4 (improving), Right Upper Extremity: 5, Left Lower Extremity: 4, Right Lower Extremity: 5 - Psychiatric Exam Psychiatric exam: Normal Affect, Normal Mood - Skin Skin Exam: Dry, Warm Assessment and Plan - Assessment and Plan (Free Text) Plan: CVA (cerebral vascular accident) Neurology consult, Dr. Ceron consult---> Help appreciated * Management as per recommendation Lipid panel: TGL: 153, Chol: 174m LDL: 111, HDL: 35 Hemoglobin A1c: 5.[address] 02/12/18: No acute abnormalities. Large chronic right MCA territory infarct with involvement of parietal lobe. Head CT (01/26/18): Posterior right MCA territory subacute infarction. Head/Neck CTA (01/26/18): * 1. Plaque noted within the common carotid arteries bilaterally. * 2. The right cervical carotid is attenuated and appears lower in density and smaller caliber than on the contralateral side. * 3. Mucosal thickening within maxillary sinuses bilaterally. 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 * 4. 1.2 cm low density lesion in the right lobe of the thyroid. Recommend further evaluation with thyroid ultrasound. Carotid Doppler (01/27/18): Duplex scan does not suggest hemodynamically significant stenosis of the left and right extracranial carotid arteries Brain MRI (01/27/18): Large subacute right MCA territory infarction involving the parietal lobe with mild gyral edema without mass effect or midline shift. Small focus of subacute infarction in the right frontal subcortical white matter. Mild chronic microangiopathic changes and mild age-related global parenchymal volume loss. Echocardiogram (01/27/18): EF (60-65%), Mild TR & Pulmonic valve regurgitation. Recommendation to continue ASA 81mg PO daily and Plavix 75mg PO daily Hypercoagulable lab workup: Antiphospholipid antibodies, Factor V mutation, Protein S activity * Protein C activity within normal limit Medication and management: * Aspirin 81mg PO daily * Plavix 75mg PO daily * Crestor 10mg PO HS * Speech, occupational and physical therapy: As per physical therapy documentation, patient will benefit from ROM skilled PT in order to improve transfers and Gait patient is clinically evolving in presentation. * As per physical therapy evaluation, patient will need to be discharge to a rehabilitation Thyroid lesion Head/Neck CTA (01/26/18): 1.2 cm low density lesion in the right lobe of the thyroid. Recommend further evaluation with thyroid ultrasound. Thyroid Ultrasound (01/27/18): Right midpole multi-septated cystic nodule measuring up to 1.4 cm. TSH: 1.10 Substance abuse UDS on admission: + Cocaine * avoid beta jelani Counseled on cessation and patient voiced that he will stop using cocaine Bradycardia Asymptomatic * Continue to monitor on telemetry Orthostatic vitals were negative Prophylactic measure GI: Protonix 40mg PO daily DVT: Lovenox 30mg SC daily, SCDs Speech, occupational and physical therapy * As per speech therapy, advanced bite diet and thin liquids Disposition: Per physical therapy, patient's is improving; however, he is unable to go home at this time. Due to his current social situation, will await correctional case records supervisor regarding access to rehabilitation. Patient lives on the second floor without elevator access. Patient lives with roommate who is unable to assist him. Patient continues to work with physical therapy. There are no updates at this time. Prescription given for walker that will be modified by PT for the patient's needs.
[2018-02-20 07:54] VITALS: BP 103/61; PULSE 51; TEMP 98.3
[2018-02-20] MEDS: Pantoprazole 40 mg EC Tab PO SCH (09:19)
[2018-02-20] MEDS: Enoxaparin 30 mg Syringe SC SCH (09:20)
--- NOTE | 2018-02-20 11:28 | CP.PCM.DIS ---
<Samm Olivares S - Last Filed: 02/20/18 13:40> Provider - Provider Date of Admission: 01/26/18 15:43 Attending physician: Blanca Baker MD Consults: Neurology: Dr. Ceron Cardiology: Dr. Martinez Time Spent in preparation of Discharge (in minutes): 40 Diagnosis - Discharge Diagnosis (1) CVA (cerebral vascular accident) Status: Acute (2) Cocaine abuse Status: Acute Hospital Course - Lab Results Lab Results: Most Recent Lab Values WBC 8.5 K/uL (4.8-10.8) 02/19/18 06:37 RBC 5.09 Mil/uL (4.40-5.90) 02/19/18 06:37 Hgb 14.5 g/dL (12.0-18.0) 02/19/18 06:37 Hct 43.3 % (35.0-51.0) 02/19/18 06:37 MCV 85.2 fL (80.0-94.0) 02/19/18 06:37 MCH 28.5 pg (27.0-31.0) 02/19/18 06:37 MCHC 33.4 g/dL (33.0-37.0) 02/19/18 06:37 RDW 14.4 % (11.5-14.5) 02/19/18 06:37 Plt Count 537 K/uL (130-400) H 02/19/18 06:37 MPV 7.3 fL (7.2-11.7) 02/19/18 06:37 Neut % (Auto) 62.6 % (50.0-75.0) 02/19/18 06:37 Lymph % (Auto) 23.4 % (20.0-40.0) 02/19/18 06:37 King % (Auto) 7.9 % (0.0-10.0) 02/19/18 06:37 Eos % (Auto) 5.2 % (0.0-4.0) H 02/19/18 06:37 Baso % (Auto) 0.9 % (0.0-2.0) 02/19/18 06:37 Neut # (Auto) 5.3 K/uL (1.8-7.0) 02/19/18 06:37 Lymph # (Auto) 2.0 K/uL (1.0-4.3) 02/19/18 06:37 King # (Auto) 0.7 K/uL (0.0-0.8) 02/19/18 06:37 Eos # (Auto) 0.4 K/uL (0.0-0.7) 02/19/18 06:37 Baso # (Auto) 0.1 K/uL (0.0-0.2) 02/19/18 06:37 ESR 5 mm/hr (0-15) 01/27/18 07:37 PT 13.4 SECONDS (9.7-12.2) H 01/26/18 13:59 INR 1.2 01/26/18 13:59 APTT 35 SECONDS (21-34) H 01/26/18 13:59 Protein C Activity 77 % (70-180) 01/27/18 07:37 Protein S Antigen 97 % (70-140) 01/27/18 07:37 Factor V see note 01/29/18 06:53 Sodium 141 mmol/L (132-148) 02/19/18 06:37 Potassium 4.3 mmol/L (3.6-5.2) 02/19/18 06:37 Chloride 103 mmol/L (98-107) 02/19/18 06:37 Carbon Dioxide 27 mmol/L (22-30) 02/19/18 06:37 Anion Gap 15 (10-20) 02/19/18 06:37 BUN 15 mg/dL (9-20) 02/19/18 06:37 Creatinine 0.9 mg/dL (0.8-1.5) 02/19/18 06:37 Est GFR ( Amer) > 60 02/19/18 06:37 Est GFR (Non-Af Amer) > 60 02/19/18 06:37 POC Glucose (mg/dL) 89 mg/dL (65-110) 02/02/18 06:24 Random Glucose 85 mg/dL (75-110) 02/19/18 06:37 Hemoglobin A1c 5.6 % (4.2-6.5) 01/26/18 13:59 Calcium 9.3 mg/dl (8.6-10.4) 02/19/18 06:37 Phosphorus 4.0 mg/dL (2.5-4.5) 02/19/18 06:37 Magnesium 2.1 mg/dL (1.6-2.3) 02/19/18 06:37 Total Bilirubin 0.3 mg/dL (0.2-1.3) 02/19/18 06:37 AST 57 U/L (17-59) 02/19/18 06:37 ALT 50 U/L (21-72) 02/19/18 06:37 Alkaline Phosphatase 69 U/L (38-126) 02/19/18 06:37 Total Creatine Kinase 108 U/L (55-170) 02/05/18 06:14 Troponin I < 0.0120 ng/mL (0.00-0.120) 01/26/18 13:59 NT-Pro-B Natriuret Pep 157 pg/mL (0-900) 01/26/18 13:59 Total Protein 6.9 g/dL (6.3-8.3) 02/19/18 06:37 Albumin 3.7 g/dL (3.5-5.0) 02/19/18 06:37 Globulin 3.2 gm/dL (2.2-3.9) 02/19/18 06:37 Albumin/Globulin Ratio 1.2 (1.0-2.1) 02/19/18 06:37 Triglycerides 153 mg/dL (0-149) H 01/26/18 13:59 Cholesterol 174 mg/dL (0-199) 01/26/18 13:59 LDL Cholesterol Direct 111 mg/dL (0-129) 01/26/18 13:59 HDL Cholesterol 35 mg/dL (30-70) 01/26/18 13:59 Prostate Specific Ag 2.03 ng/mL (0.00-4.0) 01/27/18 07:37 25-OH Vitamin D Total 12.9 NG/ML (30.0-100.0) L 01/28/18 07:08 Folate 13.4 ng/mL 01/28/18 07:08 TSH 3rd Generation 1.10 mIU/L (0.46-4.68) 01/26/18 13:59 Urine Opiates Screen Negative (NEGATIVE) 01/26/18 17:20 Urine Methadone Screen Negative (NEGATIVE) 01/26/18 17:20 Ur Barbiturates Screen Negative (NEGATIVE) 01/26/18 17:20 Ur Phencyclidine Scrn Negative (NEGATIVE) 01/26/18 17:20 Ur Amphetamines Screen Negative (NEGATIVE) 01/26/18 17:20 U Benzodiazepines Scrn Negative (NEGATIVE) 01/26/18 17:20 U Oth Cocaine Metabols Positive (NEGATIVE) H 01/26/18 17:20 U Cannabinoids Screen Negative (NEGATIVE) 01/26/18 17:20 Oaeu-8-[id number] Ab <9 CARL (<=20) 01/28/18 07:08 Beta-2 GPI IgG Ab <9 SGU (<=20) 01/28/18 07:08 Beta-2 GPI IgM Ab <9 SMU (<=20) 01/28/18 07:08 Phosphatidylserine IgG <10 U/mL (<10) 01/28/18 07:08 Phosphatidylserine IgA <20 U/mL (<20) 01/28/18 07:08 Phosphatidylserine IgM <25 U/mL (<25) 01/28/18 07:08 Anti-Phospholipid Intrp see note 01/28/18 07:08 Anti-Cardiolipin IgG Ab <14 GPL (<=14) 01/28/18 07:08 Anti-Cardiolipin IgA Ab <11 APL (<=11) 01/28/18 07:08 Anti-Cardiolipin IgM Ab <12 MPL (<=12) 01/28/18 07:08 Blood Type O POSITIVE 01/26/18 13:58 Antibody Screen Negative 01/26/18 13:58 - Hospital Course Hospital Course: Initial Note: "This is a 57 yo male with past medical hx of cocaine use presenting to ER with chief complaint of weakness. 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 He came in because he said he could not take it any more. Reports no other medical issues and no prior stroke. He says he last used cocaine 2 weeks ago. He is lao speaking only and he takes no medications at home." Hospital Course: Patient admitted for weakness due to CVA likely from cocaine use. There was a posterior right MCA territory subacute infarction on initial CT. On MRI, Large subacute right MCA territory infarction involving the parietal lobe with mild gyral edema without mass effect or midline shift. Small focus of subacute infarction in the right frontal subcortical white matter. Mild chronic microangiopathic changes and mild age-related global parenchymal volume loss. The CVA had residual left sided weakness in the upper and lower extremities. Patient's hospital course was prolonged due to lack of insurance leaving him unable to be sent to rehab. Instead, he stayed until he was strong enough to be cleared from physical therapy standpoint. Patient was on dual anti-platelet therapy for minimum of 21 days before being switched to single anti-platelet therapy. Patient discharged with prescriptions and instructions for follow up, as well as a rolling walker. This is a summary of the hospital course. For more information, refer to the medical records. Discharge Exam - Additional Findings Additional findings: - Constitutional Appears: Non-toxic, No Acute Distress - Head Exam Head Exam: ATRAUMATIC, NORMOCEPHALIC - Eye Exam Eye Exam: EOMI, Normal appearance - ENT Exam ENT Exam: Mucous Membranes Moist - Respiratory Exam Respiratory Exam: Clear to Auscultation Bilateral, NORMAL BREATHING PATTERN. absent: Accessory Muscle Use, Rales, Rhonchi, Wheezes, Respiratory Distress - Cardiovascular Exam Cardiovascular Exam: REGULAR RHYTHM, +S1, +S2 - GI/Abdominal Exam GI & Abdominal Exam: Soft, Normal Bowel Sounds. absent: Distended, Firm, Guarding, Rigid, Tenderness, Rebound - Extremities Exam Extremities Exam: absent: Calf Tenderness, Pedal Edema Additional comments: Moving all four extremities. - Neurological Exam Neurological Exam: Alert, Awake Neuro motor strength exam: Left Upper Extremity: 5, Right Upper Extremity: 5, Left Lower Extremity: 5, Right Lower Extremity: 5 - Psychiatric Exam Psychiatric exam: Normal Affect, Normal Mood - Skin Skin Exam: Dry, Warm Discharge Plan - Discharge Medications Prescriptions: Rosuvastatin Calcium [Crestor] 10 mg PO HS #30 tab - Follow Up Plan Condition: STABLE Disposition: HOME/ ROUTINE Instructions: Smoking: Not Just Harmful to Your Lungs and Heart, Stroke (DC), Bradycardia (DC), Lowering the Risk of Having Another Stroke, Quitting Smoking, Risk Factors for Stroke Additional Instructions: Please take Aspirin 81 mg everyday with breakfast. You can buy this over the counter in a pharmacy without a prescription. Please take Rosuvastatin 10 mg every night before bedtime. Please use the walker that was provided for you so that you can move around. Please follow up with the [facility] which is the clinic located in the basement of [facility]. Please follow up with them within 1 week. If there are any new or worsening symptoms, please go to the nearest emergency room. Por favor, tome Aspirina 81 mg todos los fink con el desayuno. Puede comprarlo sin receta en [facility] sin receta. [place] Rosuvastatin 10 mg todas las noches antes de acostarse. Utilice el andador que le proporcionaron para que pueda moverse. Por favor lenore un seguimiento con el [facility] que es la cl juan ub[facility]ada en el [facility]. Por favor lenore un seguimiento con ellos dentro de 1 semana. Si hay sntomas nuevos o que empeoran, vaya a la ashlee de emergencias ms benny. Referrals: [facility] at [facility] [Outside] Carlos Eduardo Ceron MD [Staff Provider] - Clinical Quality Measures - CQM - Stroke Antithrombotic Prescribed: Yes Anticoagulation Prescribed for Atrial Flutter, Atrial Fibrillation and History of:: Not Applicable Statin prescribed: Yes <Blanca Baker - Last Filed: 02/20/18 16:16> Provider - Provider Date of Admission: 01/26/18 15:43 Attending physician: Blanca Baker MD Hospital Course - Lab Results Lab Results: Most Recent Lab Values WBC 8.5 K/uL (4.8-10.8) 02/19/18 06:37 RBC 5.09 Mil/uL (4.40-5.90) 02/19/18 06:37 Hgb 14.5 g/dL (12.0-18.0) 02/19/18 06:37 Hct 43.3 % (35.0-51.0) 02/19/18 06:37 MCV 85.2 fL (80.0-94.0) 02/19/18 06:37 MCH 28.5 pg (27.0-31.0) 02/19/18 06:37 MCHC 33.4 g/dL (33.0-37.0) 02/19/18 06:37 RDW 14.4 % (11.5-14.5) 02/19/18 06:37 Plt Count 537 K/uL (130-400) H 02/19/18 06:37 MPV 7.3 fL (7.2-11.7) 02/19/18 06:37 Neut % (Auto) 62.6 % (50.0-75.0) 02/19/18 06:37 Lymph % (Auto) 23.4 % (20.0-40.0) 02/19/18 06:37 King % (Auto) 7.9 % (0.0-10.0) 02/19/18 06:37 Eos % (Auto) 5.2 % (0.0-4.0) H 02/19/18 06:37 Baso % (Auto) 0.9 % (0.0-2.0) 02/19/18 06:37 Neut # (Auto) 5.3 K/uL (1.8-7.0) 02/19/18 06:37 Lymph # (Auto) 2.0 K/uL (1.0-4.3) 02/19/18 06:37 King # (Auto) 0.7 K/uL (0.0-0.8) 02/19/18 06:37 Eos # (Auto) 0.4 K/uL (0.0-0.7) 02/19/18 06:37 Baso # (Auto) 0.1 K/uL (0.0-0.2) 02/19/18 06:37 ESR 5 mm/hr (0-15) 01/27/18 07:37 PT 13.4 SECONDS (9.7-12.2) H 01/26/18 13:59 INR 1.2 01/26/18 13:59 APTT 35 SECONDS (21-34) H 01/26/18 13:59 Protein C Activity 77 % (70-180) 01/27/18 07:37 Protein S Antigen 97 % (70-140) 01/27/18 07:37 Factor V see note 01/29/18 06:53 Sodium 141 mmol/L (132-148) 02/19/18 06:37 Potassium 4.3 mmol/L (3.6-5.2) 02/19/18 06:37 Chloride 103 mmol/L (98-107) 02/19/18 06:37 Carbon Dioxide 27 mmol/L (22-30) 02/19/18 06:37 Anion Gap 15 (10-20) 02/19/18 06:37 BUN 15 mg/dL (9-20) 02/19/18 06:37 Creatinine 0.9 mg/dL (0.8-1.5) 02/19/18 06:37 Est GFR ( Amer) > 60 02/19/18 06:37 Est GFR (Non-Af Amer) > 60 02/19/18 06:37 POC Glucose (mg/dL) 89 mg/dL (65-110) 02/02/18 06:24 Random Glucose 85 mg/dL (75-110) 02/19/18 06:37 Hemoglobin A1c 5.6 % (4.2-6.5) 01/26/18 13:59 Calcium 9.3 mg/dl (8.6-10.4) 02/19/18 06:37 Phosphorus 4.0 mg/dL (2.5-4.5) 02/19/18 06:37 Magnesium 2.1 mg/dL (1.6-2.3) 02/19/18 06:37 Total Bilirubin 0.3 mg/dL (0.2-1.3) 02/19/18 06:37 AST 57 U/L (17-59) 02/19/18 06:37 ALT 50 U/L (21-72) 02/19/18 06:37 Alkaline Phosphatase 69 U/L (38-126) 02/19/18 06:37 Total Creatine Kinase 108 U/L (55-170) 02/05/18 06:14 Troponin I < 0.0120 ng/mL (0.00-0.120) 01/26/18 13:59 NT-Pro-B Natriuret Pep 157 pg/mL (0-900) 01/26/18 13:59 Total Protein 6.9 g/dL (6.3-8.3) 02/19/18 06:37 Albumin 3.7 g/dL (3.5-5.0) 02/19/18 06:37 Globulin 3.2 gm/dL (2.2-3.9) 02/19/18 06:37 Albumin/Globulin Ratio 1.2 (1.0-2.1) 02/19/18 06:37 Triglycerides 153 mg/dL (0-149) H 01/26/18 13:59 Cholesterol 174 mg/dL (0-199) 01/26/18 13:59 LDL Cholesterol Direct 111 mg/dL (0-129) 01/26/18 13:59 HDL Cholesterol 35 mg/dL (30-70) 01/26/18 13:59 Prostate Specific Ag 2.03 ng/mL (0.00-4.0) 01/27/18 07:37 25-OH Vitamin D Total 12.9 NG/ML (30.0-100.0) L 01/28/18 07:08 Folate 13.4 ng/mL 01/28/18 07:08 TSH 3rd Generation 1.10 mIU/L (0.46-4.68) 01/26/18 13:59 Urine Opiates Screen Negative (NEGATIVE) 01/26/18 17:20 Urine Methadone Screen Negative (NEGATIVE) 01/26/18 17:20 Ur Barbiturates Screen Negative (NEGATIVE) 01/26/18 17:20 Ur Phencyclidine Scrn Negative (NEGATIVE) 01/26/18 17:20 Ur Amphetamines Screen Negative (NEGATIVE) 01/26/18 17:20 U Benzodiazepines Scrn Negative (NEGATIVE) 01/26/18 17:20 U Oth Cocaine Metabols Positive (NEGATIVE) H 01/26/18 17:20 U Cannabinoids Screen Negative (NEGATIVE) 01/26/18 17:20 Sshp-3-Tmhhzdlbbowr Ab <9 CARL (<=20) 01/28/18 07:08 Beta-2 GPI IgG Ab <9 SGU (<=20) 01/28/18 07:08 Beta-2 GPI IgM Ab <9 SMU (<=20) 01/28/18 07:08 Phosphatidylserine IgG <10 U/mL (<10) 01/28/18 07:08 Phosphatidylserine IgA <20 U/mL (<20) 01/28/18 07:08 Phosphatidylserine IgM <25 U/mL (<25) 01/28/18 07:08 Anti-Phospholipid Intrp see note 01/28/18 07:08 Anti-Cardiolipin IgG Ab <14 GPL (<=14) 01/28/18 07:08 Anti-Cardiolipin IgA Ab <11 APL (<=11) 01/28/18 07:08 Anti-Cardiolipin IgM Ab <12 MPL (<=12) 01/28/18 07:08 Blood Type O POSITIVE 01/26/18 13:58 Antibody Screen Negative 01/26/18 13:58 Attending/Attestation - Attestation I have personally seen and examined this patient.: Yes I have fully participated in the care of the patient.: Yes I have reviewed all pertinent clinical information, including history, physical exam and plan: Yes Notes (Text): Seen and examined patient is happy to go home d/w PT about his ambulation and walking up and down on stairs. I agree with the resident's discharge plan 02/20/18 16:15
== END 2018-02-20 14:34 | disposition home or self-care (01) | DRG 65 ==
LOC: C.ER 13:13 → C.9E 15:43 → C.6T 17:31
PROVIDERS: ADMIT Hospitalist; ATTEND Internal Medicine
DX: I63.8 Other cerebral infarction (principal); G81.94 Hemiplegia, unspecified affecting left nondominant side; R29.810 Facial weakness; J45.909 Unspecified asthma, uncomplicated; F14.10 Cocaine abuse, uncomplicated; F17.210 Nicotine dependence, cigarettes, uncomplicated; I37.1 Nonrheumatic pulmonary valve insufficiency; E07.89 Other specified disorders of thyroid; R00.1 Bradycardia, unspecified; R47.1 Dysarthria and anarthria

== ENCOUNTER 2018-04-15 13:27 | Emergency (ER) | payer SELFPAY ==
[2018-04-15 13:37] VITALS: BP 149/79; PULSE 66; RESP 20; TEMP 99.1; O2SAT 98
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
--- NOTE | 2018-04-15 16:40 | RAD ---
PROCEDURE: Radiographs of the Left Shoulder HISTORY: Shoulder injury COMPARISON: No prior. FINDINGS: BONES: Normal. No fracture. JOINTS: Normal. Glenohumeral and acromioclavicular joints preserved. No osteoarthritis. SOFT TISSUES: Normal. OTHER FINDINGS: None. IMPRESSION: No evidence of acute displaced fracture nor dislocation.
== END 2018-04-15 16:41 | disposition home or self-care (01) ==
LOC: C.ER 13:27
DX: S43.402A Unspecified sprain of left shoulder joint, initial encounter (principal); X58.XXXA Exposure to other specified factors, initial encounter

== ENCOUNTER 2018-08-20 12:08 | Emergency (ER) | payer OTHER, SELFPAY ==
[2018-08-20 12:30] VITALS: TEMP 98.1
[2018-08-20 12:47] VITALS: BP 127/74; PULSE 55; RESP 18; O2SAT 97
--- NOTE | 2018-08-20 14:41 | C.PDOC ---
History Of Present Illness 58 yr old male p/w UE problem per chart. Eloped prior to my evaluation. Time Seen by Provider: 08/20/18 13:49 Chief Complaint (Nursing): Upper Extremity Problem/Injury Past Medical History Vital Signs: Last Vital Signs Temp 98.1 F 08/20/18 12:46 Pulse 55 L 08/20/18 12:46 Resp 18 08/20/18 12:46 BP 127/74 08/20/18 12:46 Pulse Ox 97 08/20/18 16:24 - Medical History PMH: Asthma Denies: Chronic Kidney Disease Family History: States: Unknown Family Hx - Social History Hx Alcohol Use: No Hx Substance Use: Yes (ocassionally) - Immunization History Hx Tetanus Toxoid Vaccination: No Hx Influenza Vaccination: No Hx Pneumococcal Vaccination: No ED Course And Treatment O2 Sat by Pulse Oximetry: 97 Disposition - Disposition Disposition: ELOPEMENT - ER ONLY Disposition Time: 13:00 Condition: UNKNOWN Forms: [facility] (Sudanese) - Clinical Impression Clinical Impression: Upper extremity pain
== END 2018-08-20 13:49 | disposition left against medical advice (07) ==
LOC: C.ER 12:08
DX: Z02.89 Encounter for other administrative examinations (principal); M79.603 Pain in arm, unspecified